=== PATIENT | female | born 1935 | race African-American/Black ===

== ENCOUNTER 2017-06-30 12:21 | Inpatient (IN) | payer MEDICARE, MEDICAID ==
[~2017-06-30] VITALS: Ht 165.1 cm; Wt 49.9 kg
[2017-06-30] VITALS (14 sets, daily range): BP systolic 57–151; BP diastolic 23–75
[2017-06-30] MEDS ORDERED: DOCUSATE SODIU100 MG JT (12:51)
[2017-06-30] MEDS ORDERED: ATORVASTATIN CA20 MG JT (12:51)
[2017-06-30] MEDS ORDERED: ASPIRIN EC81 MG JT (12:51)
[2017-06-30] MEDS ORDERED: FERROUS SULFAT325 MG JT (12:51)
[2017-06-30] MEDS ORDERED: VITAMIN C500 M1 JT (12:51)
[2017-06-30] MEDS ORDERED: ACETAMINOPHEN325 M1 JT (12:51)
[2017-06-30] MEDS ORDERED: VITAMIN D400 INTLU JT (12:51)
[2017-06-30] MEDS ORDERED: VITAMIN A & D113 GM TP (12:51)
[2017-06-30] MEDS ORDERED: CALMOSEPTINE O3.5 G1 TP (12:51)
[2017-06-30 13:05] LABS: HEMATOCRIT 10.1 % (37.0-47.0); MEAN CORPUSCULAR VOLUME 106 FL (80-99); PLATELET COUNT 233 K/UL (150-450); RED BLOOD COUNT 0.95 M/UL (4.20-5.40); RED CELL DISTRIBUTION WIDTH 16.2 % (11.6-14.8); WHITE BLOOD COUNT 7.9 K/UL (4.8-10.8)
[2017-06-30] MEDS ORDERED: Pantoprazole Inj IVP ONE (13:15)
[2017-06-30 13:29] LABS: ANION GAP 6 mmol/L (5-15); BLOOD UREA NITROGEN 28 mg/dL (7-18); CARBON DIOXIDE 29 MMOL/L (21-32); CHLORIDE 103 MMOL/L (98-107); CREATININE 0.7 MG/DL (0.55-1.30); POTASSIUM 3.6 MMOL/L (3.5-5.1); SODIUM 137 MMOL/L (136-145)
[2017-06-30 13:39] LABS: ALANINE AMINOTRANSFERASE 71 U/L (12-78); ALBUMIN 2.1 G/DL (3.4-5.0); ALBUMIN/GLOBULIN RATIO 0.6 (1.0-2.7); ALKALINE PHOSPHATASE 49 U/L (46-116); ASPARTATE AMINO TRANSFERASE 39 U/L (15-37); BILIRUBIN,TOTAL 0.3 MG/DL (0.2-1.0); CREATINE KINASE 109 U/L (26-308)
--- NOTE | 2017-06-30 14:06 | Emergency Room Report ---
History of Present Illness General Chief Complaint: General Complaint Source: Family Member, Medical Record, EMS Present Illness HPI The patient is sent in for hypotension. According to the godson, gastrostomy tube placed one week ago. She's been having difficulty moving her bowels. Her blood pressure was noted to be low at the SNF. There is some argument over transporting her because she's DO NOT RESUSCITATE status. The godson insisted that she receive evaluation and treatment. No other history available. Patient in vegetative state and further history unavailable. Allergies: Coded Allergies: No Known Allergies (Unverified , 06/30/17) Patient History Past Medical History: see triage record Past Surgical History: other - Gastrostomy tube Social History Narrative [facility] Reviewed Nursing Documentation: PMH: Agreed, PSxH: Agreed Nursing Documentation-PMH Hx COPD: Yes Review of Systems All Other Systems: limited Physical Exam Vital Signs Date Time Temp Pulse Resp B/P (MAP) Pulse Ox O2 Delivery O2 Flow Rate FiO2 06/30/17 12:16 97.9 59 16 95/38 96 Nasal Cannula 3.0 Sp02 EP Interpretation: reviewed, abnormal - interpreted as low by me General Appearance: no apparent distress, thin, Chronically Ill Head: normocephalic Eyes: bilateral eye PERRL, bilateral eye conjunctivae pale ENT: moist mucus membranes Neck: supple Respiratory: lungs clear, normal breath sounds Cardiovascular #1: bradycardia Cardiovascular #2: 2+ radial (L) Gastrointestinal: normal bowel sounds, non tender, soft, no mass, other - G tube Rectal: black stool, heme positive stool - melena Genitourinary: no CVA tenderness Musculoskeletal: other - contractures and atrophy Neurologic: other - ebulic, no response to pain Psychiatric: other - vegetative state Skin: pallor Procedures Critical Care Time Critical Care Time Total Critical Care Time: 30 min bedside evaluation and treatment excludes procedures (EKG). Reason for critical care: determine level of care, hypotension, critical anemia Possible complications: hypotension, hypertension, HI, shock, arrhythmias, metabolic acidosis, end organ damage, respiratory failure. Interventions: Fluids, blood, determining level of care Course: Patient presents with hypotension and melena. Critical anemia. Discussion with leidy regarding level of care. Blood ordered and discussed with blood bank. BP better with hydration. Blood transfusing with patient tolerating well. Consultations: nursing staff, EMS, family, blood bank Performed by: Dr. Palm Tolerated well condition = serious Medical Decision Making Diagnostic Impression: Primary Impression: Upper gastrointestinal bleed Additional Impressions: Critical anemia Hypotension (arterial) Qualified Codes: I95.89 - Other hypotension ER Course Patient presents with hypotension and melena. Ddx: UGI bleed, PUD, gastritis, post-gastrostomy tube bleeding amongst others. Patient needs emergent evaluation and treatment. EKG, CXR, sepsis w/u. Treatment with fluids and will need to assess if comfort care includes blood transfusions. Will also treat with protonix. Critical anemia. EKG without injury. CXR clear. CMP with elevated BUN. Neg troponin. Elevated lactate felt due to hemorrhagic shock. Contacted blood bank for transfusion DIANA @ 13:55. Discussed with God-son who has DPA - wants transfusion. BP better with fluids. Needs transfusion. Blood ordered and started. Dr. Cooper requests Dr. Marshall. Admit med Dr. Marshall and Ms. Strong. Patient improved. DNR status continued. Admit med. Laboratory Tests Test 06/30/17 12:30 06/30/17 14:00 White Blood Count 7.9 K/UL (4.8-10.8) Red Blood Count 0.95 M/UL (4.20-5.40) L Hemoglobin 3.0 G/DL (12.0-16.0) *L Hematocrit 10.1 % (37.0-47.0) L Mean Corpuscular Volume 106 FL (80-99) H Mean Corpuscular Hemoglobin 31.6 PG (27.0-31.0) H Mean Corpuscular Hemoglobin Concent 29.8 G/DL (32.0-36.0) L Red Cell Distribution Width 16.2 % (11.6-14.8) H Platelet Count 233 K/UL (150-450) Mean Platelet Volume 6.8 FL (6.5-10.1) Neutrophils (%) (Auto) % (45.0-75.0) Lymphocytes (%) (Auto) % (20.0-45.0) Monocytes (%) (Auto) % (1.0-10.0) Eosinophils (%) (Auto) % (0.0-3.0) Basophils (%) (Auto) % (0.0-2.0) Differential Total Cells Counted 100 Neutrophils % (Manual) 73 % (45-75) Lymphocytes % (Manual) 26 % (20-45) Monocytes % (Manual) 1 % (1-10) Eosinophils % (Manual) 0 % (0-3) Basophils % (Manual) 0 % (0-2) Band Neutrophils 0 % (0-8) Nucleated Red Blood Cells 1 /100 WBC Platelet Estimate Adequate Platelet Morphology Normal Polychromasia 2+ Hypochromasia 2+ Anisocytosis 1+ Macrocytosis 1+ Prothrombin Time 10.9 SEC (9.30-11.50) Prothrombin Time INR 1.0 (0.9-1.1) PTT 23 SEC (23-33) Sodium Level 137 MMOL/L (136-145) Potassium Level 3.6 MMOL/L (3.5-5.1) Chloride Level 103 MMOL/L (98-107) Carbon Dioxide Level 29 MMOL/L (21-32) Anion Gap 6 mmol/L (5-15) Blood Urea Nitrogen 28 mg/dL (7-18) H Creatinine 0.7 MG/DL (0.55-1.30) Estimate Glomerular Filtration Rate mL/min (>60) Glucose Level 125 MG/DL (74-106) H Lactic Acid Level 3.70 mmol/L (0.66-2.22) H Pending Calcium Level 8.0 MG/DL (8.5-10.1) L Total Bilirubin 0.3 MG/DL (0.2-1.0) Aspartate Amino Transferase (AST) 39 U/L (15-37) H Alanine Aminotransferase (ALT) 71 U/L (12-78) Alkaline Phosphatase 49 U/L (46-116) Total Creatine Kinase 109 U/L (26-308) Troponin I 0.030 ng/mL (0.000-0.056) Pro-B-Type Natriuretic Peptide 2962 pg/mL (0-125) H Total Protein 5.6 G/DL (6.4-8.2) L Albumin 2.1 G/DL (3.4-5.0) L Globulin 3.5 g/dL Albumin/Globulin Ratio 0.6 (1.0-2.7) L Urine Color Yellow Urine Appearance Clear Urine pH 6 (4.5-8.0) Urine Specific Vaughan 1.015 (1.005-1.035) Urine Protein Negative (NEGATIVE) Urine Glucose (UA) Negative (NEGATIVE) Urine Ketones Negative (NEGATIVE) Urine Occult Blood Negative (NEGATIVE) Urine Nitrite Negative (NEGATIVE) Urine Bilirubin Negative (NEGATIVE) Urine Urobilinogen 1 MG/DL (0.0-1.0) H Urine Leukocyte Esterase 1+ (NEGATIVE) H Urine RBC 0-2 /HPF (0 - 2) Urine WBC 2-4 /HPF (0 - 2) Urine Squamous Epithelial Cells Occasional /LPF Urine Bacteria Occasional /HPF (NONE) EKG Diagnostic Results Rate: bradycardiac Rhythm: NSR ST Segments: no acute changes Rhythm Strip Diag. Results EP Interpretation: yes Rhythm: other - bradycardia, PVC, rate = 58 Chest X-Ray Diagnostic Results Chest X-Ray Diagnostic Results : Chest X-Ray Ordered: Yes # of Views/Limited/Complete: 1 View Indication: Other EP Interpretation: Yes Interpretation: no consolidation, no effusion, no pneumothorax Impression: Other Electronically Signed by: Eric Palm MD Last Vital Signs Date Time Temp Pulse Resp B/P (MAP) Pulse Ox O2 Delivery O2 Flow Rate FiO2 06/30/17 17:00 96.1 65 19 117/64 100 Room Air 06/30/17 12:16 3.0 Status: improved Disposition: ADMITTED INPATIENT Condition: Critical Eric Palm M.D. Jun 30, 2017 14:06
[2017-06-30 14:38] LABS: APPEARANCE,URINE CLEAR; BILIRUBIN, URINE NEGATIVE (NEGATIVE); GLUCOSE, URINE (UA) NEGATIVE (NEGATIVE); KETONES,URINE NEGATIVE (NEGATIVE); LEUKOCYTE ESTERASE ,URINE 1+ (NEGATIVE); NITRITE,URINE NEGATIVE (NEGATIVE); PH,URINE 6 (4.5-8.0); PROTEIN,URINE NEGATIVE (NEGATIVE); UROBILINOGEN,URINE 1 MG/DL (0.0-1.0)
[2017-06-30 14:42] LABS: COLOR,URINE YELLOW
[2017-06-30] MEDS: D5NS 1,000 ML IV SCH (19:00)
[2017-07-01] VITALS: BP 142/71
[2017-07-01] MEDS: D5NS 1,000 ML IV SCH (00:35)
[2017-07-01 07:57] LABS: ANION GAP 5 mmol/L (5-15); BLOOD UREA NITROGEN 20 mg/dL (7-18); CARBON DIOXIDE 28 MMOL/L (21-32); CHLORIDE 107 MMOL/L (98-107); CREATININE 0.6 MG/DL (0.55-1.30); SODIUM 140 MMOL/L (136-145)
[2017-07-01 07:58] LABS: HEMATOCRIT 17.5 % (37.0-47.0); MEAN CORPUSCULAR VOLUME 87 FL (80-99); PLATELET COUNT 177 K/UL (150-450); RED BLOOD COUNT 2.01 M/UL (4.20-5.40); RED CELL DISTRIBUTION WIDTH 24.8 % (11.6-14.8); WHITE BLOOD COUNT 6.6 K/UL (4.8-10.8)
[2017-07-01 08:02] VITALS: BP 135/65
[2017-07-01 08:05] LABS: HEMOGLOBIN 5.8 G/DL (12.0-16.0)
--- NOTE | 2017-07-01 09:41 | Diagnostic Imaging Report ---
Indication: Shortness of breath Technique: One view of the chest Comparison: none Findings: Patient's chin obscures the upper mediastinum and portions of the lung apices. Scarring is seen in the left midlung periphery. Calcified granulomatous lymph node is seen on the left. No definite acute infiltrates or effusions. The heart is borderline enlarged. Aorta is tortuous. Impression: . Limited exam, as described No definite acute process
--- NOTE | 2017-07-01 09:54 | GI Initial Consult Note ---
Rios,Amira Ervin N.P. 07/01/17 0954: History of Present Illness General Date patient seen: Jul 01, 2017 Time patient seen: 09:45 Reason for Hospitalization: General Complaint Referring physician: TONJA Reason for Consultation: GI BLEED Present Illness HPI The patient is sent in for hypotension. According to the godruth, gastrostomy tube placed one week ago. She's been having difficulty moving her bowels. Her blood pressure was noted to be low at the SNF. There is some argument over transporting her because she's DO NOT RESUSCITATE status. The godson insisted that she receive evaluation and treatment. No other history available. Patient in vegetative state and further history unavailable. GI consulted for UGIB. JOHNY bonds, seen on floor awake alert non verbal. Per reports or melena, pt presented with anemia of low Hgb 3.0 s/p 2 units of pRBCs now 5.8. No active s/sx of hematemesis or coffee grounds. Noted that her resuscitation status FULL CODE. Unknown history of endoscopy / colonoscopies. Home Meds Reported Medications Petrolatum,White/Lanolin (VITAMIN A & D OINTMENT) 113 Gm Oint...g., 113 GM TP DAILY, GM 06/30/17 Vitamin D (Vitamin D3) 400 Unit Tablet, 1000 UNITS JT DAILY, TAB 06/30/17 Ascorbic Acid* (VITAMIN C*) 500 Mg Tablet, 500 MG JT DAILY, #30 TAB 0 Refills 06/30/17 Ferrous Sulfate* (FERROUS SULFATE*) 325 Mg Tablet, 325 MG JT DAILY, #30 TAB 0 Refills 06/30/17 Docusate Sodium* (DOCUSATE SODIUM*) 100 Mg Capsule, 100 MG JT TWICE A DAY, CAP 06/30/17 Menthol/Zinc Oxide (CALMOSEPTINE OINTMENT) 3.5 Gm Oint.pack, 3.5 GM TP DAILY, PACKET 06/30/17 Atorvastatin Calcium* (ATORVASTATIN CALCIUM*) 20 Mg Tablet, 20 MG JT BEDTIME, TAB 06/30/17 Aspirin Ec* (ASPIRIN EC*) 81 Mg Tablet.dr, 81 MG JT DAILY, TAB 06/30/17 Acetaminophen* (ACETAMINOPHEN 325MG TABLET*) 325 Mg Tablet, 650 MG JT Q4H Y for Fever/Headache/Mild Pain, TAB 06/30/17 Med list reviewed/reconciled: Yes Allergies: Coded Allergies: No Known Allergies (Unverified , 06/30/17) Patient History Limited by: medical condition History Provided By: Medical Record PMH Narrative Past Medical History: see triage record Past Surgical History: other - Gastrostomy tube Social History Narrative [facility] Reviewed Nursing Documentation: PMH: Agreed, PSxH: Agreed Nursing Documentation-PMH Hx COPD: Yes Review of Systems All Other Systems: limited Physical Exam Vital Signs Date Time Temp Pulse Resp B/P (MAP) Pulse Ox O2 Delivery O2 Flow Rate FiO2 06/30/17 12:16 97.9 59 16 95/38 96 Nasal Cannula 3.0 Sp02 EP Interpretation: reviewed, normal Labs Laboratory Tests Test 06/30/17 12:30 06/30/17 14:00 07/01/17 06:30 White Blood Count 7.9 K/UL (4.8-10.8) 6.6 K/UL (4.8-10.8) Red Blood Count 0.95 M/UL (4.20-5.40) L 2.01 M/UL (4.20-5.40) L Hemoglobin 3.0 G/DL (12.0-16.0) *L 5.8 G/DL (12.0-16.0) Hematocrit 10.1 % (37.0-47.0) L 17.5 % (37.0-47.0) #L Mean Corpuscular Volume 106 FL (80-99) H 87 FL (80-99) # Mean Corpuscular Hemoglobin 31.6 PG (27.0-31.0) H 29.0 PG (27.0-31.0) Mean Corpuscular Hemoglobin Concent 29.8 G/DL (32.0-36.0) L 33.3 G/DL (32.0-36.0) Red Cell Distribution Width 16.2 % (11.6-14.8) H 24.8 % (11.6-14.8) H Platelet Count 233 K/UL (150-450) 177 K/UL (150-450) Mean Platelet Volume 6.8 FL (6.5-10.1) 6.9 FL (6.5-10.1) Neutrophils (%) (Auto) % (45.0-75.0) % (45.0-75.0) Lymphocytes (%) (Auto) % (20.0-45.0) % (20.0-45.0) Monocytes (%) (Auto) % (1.0-10.0) % (1.0-10.0) Eosinophils (%) (Auto) % (0.0-3.0) % (0.0-3.0) Basophils (%) (Auto) % (0.0-2.0) % (0.0-2.0) Differential Total Cells Counted 100 100 Neutrophils % (Manual) 73 % (45-75) 73 % (45-75) Lymphocytes % (Manual) 26 % (20-45) 18 % (20-45) L Monocytes % (Manual) 1 % (1-10) 7 % (1-10) Eosinophils % (Manual) 0 % (0-3) 2 % (0-3) Basophils % (Manual) 0 % (0-2) 0 % (0-2) Band Neutrophils 0 % (0-8) 0 % (0-8) Nucleated Red Blood Cells 1 /100 WBC Platelet Estimate Adequate Adequate Platelet Morphology Normal Normal Polychromasia 2+ Hypochromasia 2+ Anisocytosis 1+ Macrocytosis 1+ Prothrombin Time 10.9 SEC (9.30-11.50) Prothromb Time International Ratio 1.0 (0.9-1.1) Activated Partial Thromboplast Time 23 SEC (23-33) Sodium Level 137 MMOL/L (136-145) 140 MMOL/L (136-145) Potassium Level 3.6 MMOL/L (3.5-5.1) 4.0 MMOL/L (3.5-5.1) Chloride Level 103 MMOL/L (98-107) 107 MMOL/L (98-107) Carbon Dioxide Level 29 MMOL/L (21-32) 28 MMOL/L (21-32) Anion Gap 6 mmol/L (5-15) 5 mmol/L (5-15) Blood Urea Nitrogen 28 mg/dL (7-18) H 20 mg/dL (7-18) H Creatinine 0.7 MG/DL (0.55-1.30) 0.6 MG/DL (0.55-1.30) Estimat Glomerular Filtration Rate mL/min (>60) mL/min (>60) Glucose Level 125 MG/DL (74-106) H 105 MG/DL (74-106) Lactic Acid Level 3.70 mmol/L (0.66-2.22) H Pending 1.40 mmol/L (0.66-2.22) Calcium Level 8.0 MG/DL (8.5-10.1) L 8.0 MG/DL (8.5-10.1) L Total Bilirubin 0.3 MG/DL (0.2-1.0) Aspartate Amino Transf (AST/SGOT) 39 U/L (15-37) H Alanine Aminotransferase (ALT/SGPT) 71 U/L (12-78) Alkaline Phosphatase 49 U/L (46-116) Total Creatine Kinase 109 U/L (26-308) Troponin I 0.030 ng/mL (0.000-0.056) Pro-B-Type Natriuretic Peptide 2962 pg/mL (0-125) H Total Protein 5.6 G/DL (6.4-8.2) L Albumin 2.1 G/DL (3.4-5.0) L Globulin 3.5 g/dL Albumin/Globulin Ratio 0.6 (1.0-2.7) L Urine Color Yellow Urine Appearance Clear Urine pH 6 (4.5-8.0) Urine Specific [place]oll[place] 1.015 (1.005-1.035) Urine Protein Negative (NEGATIVE) Urine Glucose (UA) Negative (NEGATIVE) Urine Ketones Negative (NEGATIVE) Urine Occult Blood Negative (NEGATIVE) Urine Nitrite Negative (NEGATIVE) Urine Bilirubin Negative (NEGATIVE) Urine Urobilinogen 1 MG/DL (0.0-1.0) H Urine Leukocyte Esterase 1+ (NEGATIVE) H Urine RBC 0-2 /HPF (0 - 2) Urine WBC 2-4 /HPF (0 - 2) Urine Squamous Epithelial Cells Occasional /LPF Urine Bacteria Occasional /HPF (NONE) General Appearance: no apparent distress, thin Head: normocephalic EENT: PERRL/EOMI, normal ENT inspection Neck: supple Respiratory: normal breath sounds, no respiratory distress Cardiovascular: normal rate Gastrointestinal: normal inspection, non tender, soft, normal bowel sounds, non -distended Rectal: deferred Genitourinary: no CVA tenderness Musculoskeletal: normal inspection, back normal Neurologic: alert, responsive Skin: no rash, warm/dry, palpation normal, well hydrated Lymphatic: normal inspection, no adenopathy Current Medications Current Medications Medications (Trade) Dose Ordered Sig/Brianna Route PRN Reason Start Time Stop Time Status Last Admin Dose Admin Dextrose/Sodium Chloride 1,000 ml @ 60 mls/hr [id number] IV 06/30/17 19:00 07/30/17 18:59 07/01/17 00:35 Pantoprazole (Protonix) 40 mg EVERY 12 HOURS IVP 07/01/17 10:00 07/31/17 09:59 GI: Plan Problems: (1) Upper gastrointestinal bleed Plan EGD cancelled today, no consent. >> will reschedule for tomorrow. - maintain NPO + IVFs - ppi BID 2 units of pRBCs now transfuse prn additional recs to follow fu labs Discussed with Dr. Scott. Thank you for this patient referral, we will follow. MELLISSA SCOTT 07/02/17 1012: History of Present Illness General Reason for Hospitalization: General Complaint Present Illness Home Meds Reported Medications Petrolatum,White/Lanolin (VITAMIN A & D OINTMENT) 113 Gm Oint...g., 113 GM TP DAILY, GM 06/30/17 Vitamin D (Vitamin D3) 400 Unit Tablet, 1000 UNITS JT DAILY, TAB 06/30/17 Ascorbic Acid* (VITAMIN C*) 500 Mg Tablet, 500 MG JT DAILY, #30 TAB 0 Refills 06/30/17 Ferrous Sulfate* (FERROUS SULFATE*) 325 Mg Tablet, 325 MG JT DAILY, #30 TAB 0 Refills 06/30/17 Docusate Sodium* (DOCUSATE SODIUM*) 100 Mg Capsule, 100 MG JT TWICE A DAY, CAP 06/30/17 Menthol/Zinc Oxide (CALMOSEPTINE OINTMENT) 3.5 Gm Oint.pack, 3.5 GM TP DAILY, PACKET 06/30/17 Atorvastatin Calcium* (ATORVASTATIN CALCIUM*) 20 Mg Tablet, 20 MG JT BEDTIME, TAB 06/30/17 Aspirin Ec* (ASPIRIN EC*) 81 Mg Tablet.dr, 81 MG JT DAILY, TAB 06/30/17 Acetaminophen* (ACETAMINOPHEN 325MG TABLET*) 325 Mg Tablet, 650 MG JT Q4H Y for Fever/Headache/Mild Pain, TAB 06/30/17 Allergies: Coded Allergies: No Known Allergies (Unverified , 06/30/17) GI: Plan Plan The patient was seen and examined at bedside and all new and available data was reviewed in the patients chart. I agree with the above findings, impression and plan. (Patient seen earlier today. Signature stamp does not reflect patient encounter time.). - MD Bl[facility] Ervin Dias Jul 01, 2017 09:54 MELLISSA SCOTT Jul 02, 2017 10:12
[2017-07-01] MEDS: Pantoprazole Inj IVP SCH ×2 (11:04→20:49)
--- NOTE | 2017-07-01 12:56 | Wound Care Consultation ---
Wound Assessment Wound Assessment : Wound Number: 1 Wound Present on Admission: Yes New Wound: No Status Change of Wound: No Wound Location Body Site Modif: mid Wound Location Body Site: sacral Wound Type: pressure ulcer Shelia Test: Does not Shelia Pressure Ulcer Stage: III Wound Thickness: Full Thickness Wound Length: 1.5 Wound Width: 1.5 Wound Depth: 0.3 Percent of Wound [place]/Red: 100 Wound Drainage Description: Serosanguineous Wound Drainage Amount: Scant Wound Drainage Odor: None/Absent Tissue Surrounding Wound: Macerated Wound General Appearance: Reddened, Draining Wound Comment #1 Mid Sacral stage III pressure ulcer Recommendation -Local wound care per protocol -Keep clean and dry -Turn and reposition -Offload both heels -Heel protector on both heels -Optimize nutrition -Low air loss mattress -Assess f/u accordingly for any changes LOKESH HARRIS RN Jul 01, 2017 12:56
[2017-07-01 16:09] VITALS: BP 137/66
--- NOTE | 2017-07-01 18:22 | Cardiology Report ---
APPROVED REPORT EKG Measurement Heart [id number] Sinus bradycardia with occasional premature ventricular complexes Septal infarct, age undetermined Abnormal ECG
[2017-07-01] MEDS ORDERED: NS 275ml ONE (19:00)
[2017-07-01] MEDS ORDERED: Tubing IV Blood Pump IV ONE (19:00)
--- NOTE | 2017-07-01 19:06 | Nephrology Progress Note ---
Assessment/Plan Problem List: (1) Dysphagia (2) PEG (percutaneous endoscopic gastrostomy) status (3) Severe anemia (4) Dehydration (5) GI bleed (6) Hypotension (arterial) (7) Upper gastrointestinal bleed Plan H&P dictated # [id number] Subjective ROS Limited/Unobtainable: Yes Subjective In bed, in no apparent distress Objective Objective Last 24 Hour Vital Signs Date Time Temp Pulse Resp B/P (MAP) Pulse Ox O2 Delivery O2 Flow Rate FiO2 07/01/17 16:09 98.1 57 20 137/66 97 07/01/17 08:02 96.8 57 19 135/65 97 07/01/17 08:00 Nasal Cannula 2.0 07/01/17 00:00 97.5 59 18 142/71 91 06/30/17 20:00 97.3 64 18 122/75 94 Intake and Output 06/30/17 07/01/17 19:00 07:00 Intake Total 1500 ml Output Total 300 ml Balance 1200 ml Intake IV Total 1500 ml Output Stool Total 300 ml # Voids 4 # Bowel Movements 1 2 Laboratory Tests 07/01/17 06:30: White Blood Count 6.6, Red Blood Count 2.01L, Hemoglobin 5.8#*L, Hematocrit 17.5 #L, Mean Corpuscular Volume 87#, Mean Corpuscular Hemoglobin 29.0, Mean Corpuscular Hemoglobin Concent 33.3, Red Cell Distribution Width 24.8H, Platelet Count 177, Mean Platelet Volume 6.9, Neutrophils (%) (Auto) , Lymphocytes (%) (Auto) , Monocytes (%) (Auto) , Eosinophils (%) (Auto) , Basophils (%) (Auto) , Differential Total Cells Counted 100, Neutrophils % ( Manual) 73, Lymphocytes % (Manual) 18L, Monocytes % (Manual) 7, Eosinophils % ( Manual) 2, Basophils % (Manual) 0, Band Neutrophils 0, Platelet Estimate Adequate, Platelet Morphology Normal, Sodium Level 140, Potassium Level 4.0, Chloride Level 107, Carbon Dioxide Level 28, Anion Gap 5, Blood Urea Nitrogen 20H, Creatinine 0.6, Estimat Glomerular Filtration Rate , Glucose Level 105, Lactic Acid Level 1.40, Calcium Level 8.0L Height (Feet): 5 Height (Inches): 5.00 Weight (Pounds): 110 General Appearance: no apparent distress, confused EENT: pale conjunctivae Neck: non-tender Cardiovascular: bradycardia Respiratory/Chest: lungs clear, normal breath sounds, no respiratory distress Abdomen: soft, other - PEG Extremities: non-tender, normal inspection, no calf tenderness Neurologic: disoriented Leyla Jordan N.P. Jul 01, 2017 19:06
[2017-07-01 19:15] VITALS: BP 145/85
[2017-07-01 23:59] VITALS: BP 151/67
[2017-07-02 03:55] VITALS: BP 133/62
[2017-07-02] MEDS: D5NS 1,000 ML IV SCH ×2 (04:20→13:57)
--- NOTE | 2017-07-02 05:00 | HX and Phyl Repo 2 Sig ---
DATE OF ADMISSION: 06/30/2017 INTERNAL MEDICINE HISTORY AND PHYSICAL HISTORY OF PRESENT ILLNESS: The patient is confused at this time, nonverbal as well. Therefore, history was obtained from medical records as well as consult. The patient is an 82-year-old female, resident of a long-term with past medical history significant for chronic obstructive pulmonary disease and dysphagia, status post percutaneous endoscopic gastrostomy placement about a week ago, who was transferred to [facility] with hypotension as well as melena. In the ED, the patient was noted to have severe anemia with a hemoglobin of 3.0 and hematocrit of 10.1. The patient was then transfused 2 units of packed red cells and admitted for further evaluation. She was also transferred here for constipation since after percutaneous endoscopic gastrostomy placement proceeding. No fever was reported at this time. No chills. No abdominal pain. She is currently in bed at this time. Blood transfusion ongoing. No transfusion reaction noted so far. PAST MEDICAL HISTORY: Significant for chronic obstructive pulmonary disease and dementia as well as dysphagia. PAST SURGICAL HISTORY: PEG placement about a week ago. MEDICATIONS: At the facility include acetaminophen 650 mg b.i.d. p.o. q.4 hours p.r.n., ascorbic acid 500 mg daily, aspirin 81 mg daily, atorvastatin 20 mg at bedtime, docusate sodium 100 mg b.i.d., ferrous sulfate 325 mg daily, and vitamin D 1000 units daily. ALLERGIES: She has no known allergies. SOCIAL HISTORY: The patient is a resident of a long-term. No history of smoking, alcohol use, or illicit drug use. REVIEW OF SYSTEMS: Unobtainable at this time due to patient is nonverbal. PHYSICAL EXAMINATION: GENERAL: This is an 82-year-old elderly female in bed, in no apparent distress. VITAL SIGNS: Blood pressure 137/66, heart rate is 57, respiratory rate 20, temp is 98.1, and O2 saturation is 97% on two liters. HEENT: Head is normocephalic and atraumatic. Pupils are equal. Pallor noted. NECK: Supple. No jugular venous distention noted. LUNGS: Clear to auscultation bilaterally. CARDIOVASCULAR: The patient is bradycardic. ABDOMEN: Soft, nontender, and nondistended. PEG tube noted. EXTREMITIES: No edema. No cyanosis. No clubbing. NEUROLOGIC: Nonfocal. LABORATORY DATA: CBC, white count 6.6, hemoglobin 5.8, hematocrit 17.5, and a platelet count of 177,000. BMP, sodium 140, potassium 4.0, chloride 107, bicarb 28, BUN 20, creatinine 0.6, and a blood glucose of 105. RADIOLOGIC FINDINGS: Chest x-ray findings, the patient's portions of the lung apices. in the left mid lung periphery. Calcified granulomatous lymph node is seen on the left. No definite acute infiltrates or effusions. The heart is borderline enlarged. The aorta is tortuous. Impression, limited exam as described. No definite acute process. ASSESSMENT: 1. Severe anemia. 2. Gastrointestinal bleeding. 3. Dysphagia, status post percutaneous endoscopic gastrostomy tube placement. 4. Chronic obstructive pulmonary disease. 5. Dehydration. 6. Hypotension, corrected. 7. Altered mental status. PLAN: The patient is currently on the fourth unit of blood transfusion. We will recheck H and H post transfusion. We will monitor H and H and transfuse as needed. GI consult has been recommended. The patient is scheduled for esophagogastroduodenoscopy tomorrow. We will follow up post procedure. Monitor intake and output. We will continue the current intravenous fluid at this time. We will monitor vitals. Obtain a stool for OB. We will monitor neurological status. Fall precautions. We will monitor the patient's overall response to treatment. Oscar Marshall M.D. Leyla Jordan DR: GUILLERMO JOB#: [id number] CC: HERLINDA
[2017-07-02 08:17] VITALS: BP 147/69
[2017-07-02 08:52] LABS: BASOPHILS % (AUTO) 0.6 % (0.0-2.0); EOSINOPHILS % (AUTO) 0.9 % (0.0-3.0); HEMATOCRIT 25.6 % (37.0-47.0); HEMOGLOBIN 8.7 G/DL (12.0-16.0); MEAN CORPUSCULAR VOLUME 89 FL (80-99); MONOCYTES % (AUTO) 7.6 % (1.0-10.0); NEUTROPHILS % (AUTO) 76.9 % (45.0-75.0); PLATELET COUNT 180 K/UL (150-450); RED BLOOD COUNT 2.88 M/UL (4.20-5.40); WHITE BLOOD COUNT 7.4 K/UL (4.8-10.8)
[2017-07-02 09:19] LABS: ANION GAP 6 mmol/L (5-15); BLOOD UREA NITROGEN 12 mg/dL (7-18); CALCIUM 8.2 MG/DL (8.5-10.1); CARBON DIOXIDE 26 MMOL/L (21-32); CHLORIDE 108 MMOL/L (98-107); CREATININE 0.5 MG/DL (0.55-1.30); POTASSIUM 3.4 MMOL/L (3.5-5.1); SODIUM 140 MMOL/L (136-145)
[2017-07-02] MEDS: Pantoprazole Inj IVP SCH ×2 (09:51→21:36)
[2017-07-02 10:01] LABS: % IRON SATURATION 7 % (15-50); IRON 18 ug/dL (50-175); TOTAL IRON BINDING CAPACITY 259 ug/dL (250-450)
[2017-07-02 10:03] LABS: FERRITIN 86 NG/ML (8-388)
--- NOTE | 2017-07-02 10:20 | Cardiac Electrophysiology PN ---
Subjective Subjective Transfer to the [facility] for atrial fib and bradycardia. Full code [id number] Objective Last 24 Hour Vital Signs Date Time Temp Pulse Resp B/P (MAP) Pulse Ox O2 Delivery O2 Flow Rate FiO2 07/02/17 08:17 98.7 53 18 147/69 95 07/02/17 03:55 100 Nasal Cannula 2.0 07/02/17 03:55 98.1 51 20 133/62 100 Nasal Cannula 07/02/17 00:00 100 Nasal Cannula 2.0 07/01/17 23:59 96.8 57 18 151/67 100 Room Air 07/01/17 19:15 96 Nasal Cannula 2.0 07/01/17 19:15 97.7 63 20 145/85 96 Nasal Cannula 07/01/17 16:09 98.1 57 20 137/66 97 Intake and Output 07/01/17 07/02/17 19:00 07:00 Intake Total 240 ml 560 ml Balance 240 ml 560 ml Intake IV Total 240 ml 560 ml Laboratory Tests Test 07/02/17 08:00 White Blood Count 7.4 K/UL (4.8-10.8) Red Blood Count 2.88 M/UL (4.20-5.40) L Hemoglobin 8.7 G/DL (12.0-16.0) #L Hematocrit 25.6 % (37.0-47.0) #L Mean Corpuscular Volume 89 FL (80-99) Mean Corpuscular Hemoglobin 30.2 PG (27.0-31.0) Mean Corpuscular Hemoglobin Concent 34.1 G/DL (32.0-36.0) Red Cell Distribution Width 20.0 % (11.6-14.8) H Platelet Count 180 K/UL (150-450) Mean Platelet Volume 6.9 FL (6.5-10.1) Neutrophils (%) (Auto) 76.9 % (45.0-75.0) H Lymphocytes (%) (Auto) 14.0 % (20.0-45.0) L Monocytes (%) (Auto) 7.6 % (1.0-10.0) Eosinophils (%) (Auto) 0.9 % (0.0-3.0) Basophils (%) (Auto) 0.6 % (0.0-2.0) Differential Total Cells Counted 100 Neutrophils % (Manual) 75 % (45-75) Lymphocytes % (Manual) 20 % (20-45) Monocytes % (Manual) 5 % (1-10) Eosinophils % (Manual) 0 % (0-3) Basophils % (Manual) 0 % (0-2) Band Neutrophils 0 % (0-8) Nucleated Red Blood Cells 1 /100 WBC Platelet Estimate Adequate Platelet Morphology Normal Polychromasia 1+ Hypochromasia 1+ Anisocytosis 2+ Reticulocyte Count Pending Hemoglobin A Pending Hemoglobin A2 Pending Hemoglobin C Pending Hemoglobin F () Pending Hemoglobin S Pending Variant Hemoglobin Pending Hemoglobin Electrophoresis Interp Pending Hemoglobin Interpretation Pending Hemoglobin Solubility Pending Prothrombin Time 10.7 SEC (9.30-11.50) Prothromb Time International Ratio 1.0 (0.9-1.1) Activated Partial Thromboplast Time 25 SEC (23-33) PTT Mixing Study Pending APTT Patient/Control Mix Pending Mix PTT Incubation Time Pending Mix PTT Normal/Saline 1:1 Immediate Pending Thrombin Time Normal Plasma Pending Fibrinogen 313 mg/dL (200-400) Sodium Level 140 MMOL/L (136-145) Potassium Level 3.4 MMOL/L (3.5-5.1) L Chloride Level 108 MMOL/L (98-107) H Carbon Dioxide Level 26 MMOL/L (21-32) Anion Gap 6 mmol/L (5-15) Blood Urea Nitrogen 12 mg/dL (7-18) Creatinine 0.5 MG/DL (0.55-1.30) L Estimat Glomerular Filtration Rate mL/min (>60) Glucose Level 93 MG/DL (74-106) Calcium Level 8.2 MG/DL (8.5-10.1) L Phosphorus Level 3.0 MG/DL (2.5-4.9) Magnesium Level 1.9 MG/DL (1.8-2.4) Iron Level 18 ug/dL (50-175) L Total Iron Binding Capacity 259 ug/dL (250-450) Percent Iron Saturation 7 % (15-50) L Unsaturated Iron Binding 241 ug/dL (112-346) Ferritin 86 NG/ML (8-388) Lactate Dehydrogenase Pending Vitamin B12 Level 466 PG/ML (193-986) Methylmalonic Acid Pending Folate 4.9 NG/ML (8.6-58.9) L Thyroid Stimulating Hormone (TSH) 2.686 uiU/mL (0.358-3.740) Free Thyroxine 1.29 NG/DL (0.76-1.46) Hepatitis A IgM Antibody Pending Hepatitis B Surface Antigen Pending Hepatitis B Core IgM Antibody Pending Hepatitis C Antibody Pending HIV (1&2) Antibody Rapid Pending Microbiology Date/Time Source Procedure Growth Status 06/30/17 12:40 Blood Blood Culture - Preliminary Resulted 06/30/17 12:30 Blood Blood Culture - Preliminary Resulted 06/30/17 17:00 Nasal Nares MRSA Culture - Final NO METHICILLIN RESISTANT STAPH AUREUS... Complete 06/30/17 17:00 Rectum VRE Culture - Final NO VANCOMYCIN RESISTANT ENTEROCOCCUS ... Complete GEOFFREY AGUERO Jul 02, 2017 10:20
[2017-07-02 12:00] VITALS: BP_SYST 147; BP_SYST 159; BP_DIAS 65; BP_DIAS 69
--- NOTE | 2017-07-02 15:32 | GI Progress Note ---
Assessment/Plan Problems: (1) Hypovolemic shock ICD Codes: R57.1 - Hypovolemic shock SNOMED: 53592509 (2) Encephalopathy ICD Codes: G93.40 - Encephalopathy, unspecified SNOMED: 90813051 (3) Severe malnutrition ICD Codes: E43 - Unspecified severe protein-calorie malnutrition SNOMED: 63386481 (4) Acute blood loss anemia ICD Codes: D62 - Acute posthemorrhagic anemia SNOMED: 813148678 (5) Dehydration ICD Codes: E86.0 - Dehydration SNOMED: 17579160 (6) Dysphagia ICD Codes: R13.10 - Dysphagia, unspecified SNOMED: 36652574, 825495028 (7) GI bleed ICD Codes: K92.2 - Gastrointestinal hemorrhage, unspecified SNOMED: 49923343 (8) Severe anemia ICD Codes: D64.9 - Anemia, unspecified SNOMED: 623226831 (9) Upper gastrointestinal bleed ICD Codes: K92.2 - Gastrointestinal hemorrhage, unspecified SNOMED: 90267529 Status: unchanged Status Narrative Discussed with Dr. Arana. Assessment/Plan EGD cancelled, pt with no onset of A-fib now in tele. fu cardiology recs prn transfusions ppi bid venofer fu labs The patient was seen and examined at bedside and all new and available data was reviewed in the patients chart. I agree with the above findings, impression and plan. (Patient seen earlier today. Signature stamp does not reflect patient encounter time.). - Darrion Arana MD Subjective Subjective limited Objective Last 24 Hour Vital Signs Date Time Temp Pulse Resp B/P (MAP) Pulse Ox O2 Delivery O2 Flow Rate FiO2 07/02/17 12:00 96.2 62 18 147/69 95 07/02/17 12:00 98.0 59 18 159/65 95 07/02/17 08:17 98.7 53 18 147/69 95 07/02/17 03:55 100 Nasal Cannula 2.0 07/02/17 03:55 98.1 51 20 133/62 100 Nasal Cannula 07/02/17 00:00 100 Nasal Cannula 2.0 07/01/17 23:59 96.8 57 18 151/67 100 Room Air 07/01/17 19:15 96 Nasal Cannula 2.0 07/01/17 19:15 97.7 63 20 145/85 96 Nasal Cannula 07/01/17 16:09 98.1 57 20 137/66 97 Intake and Output 07/01/17 07/02/17 19:00 07:00 Intake Total 240 ml 560 ml Balance 240 ml 560 ml Intake IV Total 240 ml 560 ml Laboratory Tests Test 07/02/17 08:00 07/02/17 12:40 White Blood Count 7.4 K/UL (4.8-10.8) Red Blood Count 2.88 M/UL (4.20-5.40) L Hemoglobin 8.7 G/DL (12.0-16.0) #L Hematocrit 25.6 % (37.0-47.0) #L Mean Corpuscular Volume 89 FL (80-99) Mean Corpuscular Hemoglobin 30.2 PG (27.0-31.0) Mean Corpuscular Hemoglobin Concent 34.1 G/DL (32.0-36.0) Red Cell Distribution Width 20.0 % (11.6-14.8) H Platelet Count 180 K/UL (150-450) Mean Platelet Volume 6.9 FL (6.5-10.1) Neutrophils (%) (Auto) 76.9 % (45.0-75.0) H Lymphocytes (%) (Auto) 14.0 % (20.0-45.0) L Monocytes (%) (Auto) 7.6 % (1.0-10.0) Eosinophils (%) (Auto) 0.9 % (0.0-3.0) Basophils (%) (Auto) 0.6 % (0.0-2.0) Differential Total Cells Counted 100 Neutrophils % (Manual) 75 % (45-75) Lymphocytes % (Manual) 20 % (20-45) Monocytes % (Manual) 5 % (1-10) Eosinophils % (Manual) 0 % (0-3) Basophils % (Manual) 0 % (0-2) Band Neutrophils 0 % (0-8) Nucleated Red Blood Cells 1 /100 WBC Platelet Estimate Adequate Platelet Morphology Normal Polychromasia 1+ Hypochromasia 1+ Anisocytosis 2+ Reticulocyte Count 0.4 % (0.0-2.0) Hemoglobin A Pending Hemoglobin A2 Pending Hemoglobin C Pending Hemoglobin F () Pending Hemoglobin S Pending Variant Hemoglobin Pending Hemoglobin Electrophoresis Interp Pending Hemoglobin Interpretation Pending Hemoglobin Solubility Pending Prothrombin Time 10.7 SEC (9.30-11.50) Prothromb Time International Ratio 1.0 (0.9-1.1) Activated Partial Thromboplast Time 25 SEC (23-33) PTT Mixing Study Pending APTT Patient/Control Mix Pending Mix PTT Incubation Time Pending Mix PTT Normal/Saline 1:1 Immediate Pending Thrombin Time Normal Plasma Pending Fibrinogen 313 mg/dL (200-400) Sodium Level 140 MMOL/L (136-145) Potassium Level 3.4 MMOL/L (3.5-5.1) L Chloride Level 108 MMOL/L (98-107) H Carbon Dioxide Level 26 MMOL/L (21-32) Anion Gap 6 mmol/L (5-15) Blood Urea Nitrogen 12 mg/dL (7-18) Creatinine 0.5 MG/DL (0.55-1.30) L Estimat Glomerular Filtration Rate mL/min (>60) Glucose Level 93 MG/DL (74-106) Calcium Level 8.2 MG/DL (8.5-10.1) L Phosphorus Level 3.0 MG/DL (2.5-4.9) Magnesium Level 1.9 MG/DL (1.8-2.4) Iron Level 18 ug/dL (50-175) L Total Iron Binding Capacity 259 ug/dL (250-450) Percent Iron Saturation 7 % (15-50) L Unsaturated Iron Binding 241 ug/dL (112-346) Ferritin 86 NG/ML (8-388) Lactate Dehydrogenase 283 U/L (81-234) H Vitamin B12 Level 466 PG/ML (193-986) Methylmalonic Acid Pending Folate 4.9 NG/ML (8.6-58.9) L Thyroid Stimulating Hormone (TSH) 2.686 uiU/mL (0.358-3.740) Free Thyroxine 1.29 NG/DL (0.76-1.46) Hepatitis A IgM Antibody Pending Hepatitis B Surface Antigen Pending Hepatitis B Core IgM Antibody Pending Hepatitis C Antibody Pending HIV (1&2) Antibody Rapid Negative (NEGATIVE) Troponin I 0.103 ng/mL (0.000-0.056) Height (Feet): 5 Height (Inches): 5.00 Weight (Pounds): 110 General Appearance: thin Cardiovascular: normal rate Respiratory/Chest: normal breath sounds, no respiratory distress Abdominal Exam: soft Amira Rios N.P. Jul 02, 2017 15:32 MELLISSA ARANA Jul 03, 2017 09:06
[2017-07-02 16:10] VITALS: BP 157/77
--- NOTE | 2017-07-02 17:45 | Consultation ---
DATE OF CONSULTATION: 07/02/2017 CARDIOLOGY CONSULTATION CONSULTING PHYSICIAN: Dayron Garcia M.D. REFERRING PHYSICIAN: Oscar Marshall M.D. REASON FOR CONSULTATION: Management of atrial fibrillation and hyperlipidemia. HISTORY OF PRESENT ILLNESS: The patient is an 82-year-old lady with history of advanced dementia and dysphagia, who underwent a gastrostomy tube placement about a week ago, who was brought to the emergency room as the blood pressure was noted to be low at the [facility]. The patient also is DNR. The patient is in a vegetative state and no information is available. The patient was noted to have hemoglobin of only 3 and she did receive 2 units of blood transfusion and hemoglobin improved to 5.8. There is no history of hematemesis or coffee ground. The patient's status was changed to Full Code and was admitted and a Cardiology consultation was requested as EKG showed atrial fibrillation. PAST MEDICAL HISTORY: 1. Hypertension. 2. History of dementia. 3. Hyperlipidemia. 4. Dysphagia, status post PEG placement. 5. Chronic obstructive pulmonary disease. PAST SURGICAL HISTORY: PEG placement. MEDICATIONS: Per reconciliation and include aspirin and ferrous sulfate. SOCIAL HISTORY: She lives in a nursing facility. Does not smoke or drink alcohol or use any illicit drugs. FAMILY HISTORY: Noncontributory. REVIEW OF SYSTEMS: Cannot be obtained. PHYSICAL EXAMINATION: VITAL SIGNS: Blood pressure is 147/69, pulse is 53, respirations 18, and she is afebrile. HEAD AND NECK: No JVD. LUNGS: Decreased breath sounds. CARDIOVASCULAR: Bradycardic S1 and S2 with no gallop. ABDOMEN: Status post G-tube. EXTREMITIES: No pitting edema. LABORATORY DATA: Labs showed hemoglobin initially was 3, today is 8.7; hematocrit 25.6; white count of 7.4; and platelet count is 180,000. Sodium is 140, potassium is 3.4, BUN of 12, creatinine of 0.5, and glucose of 93. Telemetry strips show baseline atrial fibrillation with ventricular response in the 50s. ASSESSMENT AND PLAN: 1. Atrial fibrillation based on EKG. There is no prior history per her records. We will repeat the EKG and get an echocardiogram to evaluate for ejection fraction and wall motion abnormality. Echocardiogram was also ordered. 2. Profound anemia with hemoglobin A1c. The patient is scheduled for EGD today. 3. History of bradycardia based on records from [facility] and heart rate was dropping to 40s. We will transfer the patient to telemetry. 4. Dysphagia, status post PEG placement by Dr. Amado at [facility]. Thank you very much, Dr. Marshall, for allowing me to participate in the care of this patient. Please do not hesitate to contact me for any questions regarding my evaluation. Dayron Garcia M.D. DR: TANO JOB#: [id number] CC:
--- NOTE | 2017-07-02 18:38 | Cardiology Report ---
APPROVED REPORT EXAM: Two-dimensional and M-mode echocardiogram with Doppler and color Doppler. INDICATION Pre-Op M-Mode DIMENSIONS IVSd1.0 (0.7-1.1cm)Left Atrium (MM)5.6 (1.6-4.0cm) LVDd4.8 (3.5-5.6cm)Aortic Root2.3 (2.0-3.7cm) PWd1.1 (0.7-1.1cm)Aortic Cusp Exc.1.8 (1.5-2.0cm) LVDs2.6 (2.5-4.0cm) PWs1.0 cm Technically difficult study due to poor acoustical windows. Patients position and moving. Normal left ventricular chamber size, systolic function and wall motion. Left ventricular ejection fraction estimated to be 55-60%. No evidence of left ventricular hypertrophy. No evidence of pericardial or pleural effusion. Moderate bi-atrial enlargement by 2D. Focal aortic valve sclerosis with adequate cusp excursion. Thickened mitral valve leaflets with normal excursion. Mild mitral annulus and aortic root calcification. Pulmonic valve is well visualized. Normal tricuspid valve structure. IVC is not obtainable due to GI tube. A color flow and spectral Doppler study was performed and revealed: No aortic regurgitation. Mild mitral regurgitation. Normal mitral diastolic function. Moderate tricuspid regurgitation. Tricuspid systolic velocities suggests peak right ventricular systolic pressure of 56 mmHg Consistent with severe pulmonary hypertension. Pulmonic regurgitation present.
[2017-07-02 20:00] VITALS: BP 149/67
[2017-07-02] MEDS: Iron Sucrose 100 MG in NS 55 ML IV SCH (21:36)
[2017-07-03] VITALS: BP 156/76
--- NOTE | 2017-07-03 00:01 | Nephrology Progress Note ---
JAY EVANGELISTA 07/03/17 0001: Subjective Subjective late entry for 07/02 - Objective Objective Last 24 Hour Vital Signs Date Time Temp Pulse Resp B/P (MAP) Pulse Ox O2 Delivery O2 Flow Rate FiO2 07/02/17 18:17 58 07/02/17 16:10 96.6 63 18 157/77 95 07/02/17 16:00 58 07/02/17 12:00 96.2 62 18 147/69 95 07/02/17 12:00 98.0 59 18 159/65 95 07/02/17 08:17 98.7 53 18 147/69 95 07/02/17 03:55 100 Nasal Cannula 2.0 07/02/17 03:55 98.1 51 20 133/62 100 Nasal Cannula Intake and Output 07/02/17 07/03/17 19:00 07:00 Intake Total 120 ml Balance 120 ml Intake IV Total 120 ml # Voids 7 # Bowel Movements 2 Laboratory Tests 07/02/17 08:00: White Blood Count 7.4, Red Blood Count 2.88L, Hemoglobin 8.7#L, Hematocrit 25.6# L, Mean Corpuscular Volume 89, Mean Corpuscular Hemoglobin 30.2, Mean Corpuscular Hemoglobin Concent 34.1, Red Cell Distribution Width 20.0H, Platelet Count 180, Mean Platelet Volume 6.9, Neutrophils (%) (Auto) 76.9H, Lymphocytes (%) (Auto) 14.0L, Monocytes (%) (Auto) 7.6, Eosinophils (%) (Auto) 0.9, Basophils (%) (Auto) 0.6, Differential Total Cells Counted 100, Neutrophils % (Manual) 75, Lymphocytes % (Manual) 20, Monocytes % (Manual) 5, Eosinophils % (Manual) 0, Basophils % (Manual) 0, Band Neutrophils 0, Nucleated Red Blood Cells 1, Platelet Estimate Adequate, Platelet Morphology Normal, Polychromasia 1+, Hypochromasia 1+, Anisocytosis 2+, Reticulocyte Count 0.4, Hemoglobin A [Pending], Hemoglobin A2 [Pending], Hemoglobin C [Pending], Hemoglobin F () [Pending], Hemoglobin S [Pending], Variant Hemoglobin [ Pending], Hemoglobin Electrophoresis Interp [Pending], Hemoglobin Interpretation [Pending], Hemoglobin Solubility [Pending], Prothrombin Time 10.7 , Prothromb Time International Ratio 1.0, Activated Partial Thromboplast Time 25 , PTT Mixing Study [Pending], APTT Patient/Control Mix [Pending], Mix PTT Incubation Time [Pending], Mix PTT Normal/Saline 1:1 Immediate [Pending], Thrombin Time Normal Plasma [Pending], Fibrinogen 313, Sodium Level 140, Potassium Level 3.4L, Chloride Level 108H, Carbon Dioxide Level 26, Anion Gap 6 , Blood Urea Nitrogen 12, Creatinine 0.5L, Estimat Glomerular Filtration Rate , Glucose Level 93, Calcium Level 8.2L, Phosphorus Level 3.0, Magnesium Level 1.9 , Iron Level 18L, Total Iron Binding Capacity 259, Percent Iron Saturation 7L, Unsaturated Iron Binding 241, Ferritin 86, Lactate Dehydrogenase 283H, Vitamin B12 Level 466, Methylmalonic Acid [Pending], Folate 4.9L, Thyroid Stimulating Hormone (TSH) 2.686, Free Thyroxine 1.29, Hepatitis A IgM Antibody [Pending], Hepatitis B Surface Antigen [Pending], Hepatitis B Core IgM Antibody [Pending], Hepatitis C Antibody [Pending], HIV (1&2) Antibody Rapid Negative 07/02/17 12:40: Troponin I 0.103H 07/02/17 19:10: Troponin I 0.146H Height (Feet): 5 Height (Inches): 5.00 Weight (Pounds): 110 SHARON HOLLOWAY 07/03/17 1246: Assessment/Plan Problem List: (1) Hypotension (arterial) (2) Upper gastrointestinal bleed (3) Dehydration (4) Dysphagia (5) Severe anemia (6) Encephalopathy (7) Acute blood loss anemia (8) Hypovolemic shock (9) GI bleed (10) Severe malnutrition Plan Pending EGD. Follow up GI recs. MOnitor labs. Transfuse prn. Subjective Subjective transferred to tele for afib and bradycardia. Objective Objective General Appearance: WD/WN, no apparent distress Cardiovascular: regularly irregular, bradycardia Respiratory/Chest: lungs clear Abdomen: non tender, soft Extremities: non-pitting JAY EVANGELISTA Jul 03, 2017 00:01 SHARON HOLLOWAY Jul 03, 2017 12:46
[2017-07-03 03:31] LABS: BASOPHILS % (AUTO) 0.9 % (0.0-2.0); EOSINOPHILS % (AUTO) 0.5 % (0.0-3.0); LYMPHOCYTES % (AUTO) 7.6 % (20.0-45.0); MEAN CORPUSCULAR VOLUME 88 FL (80-99); MONOCYTES % (AUTO) 7.6 % (1.0-10.0); NEUTROPHILS % (AUTO) 83.3 % (45.0-75.0); PLATELET COUNT 178 K/UL (150-450); RED BLOOD COUNT 3.08 M/UL (4.20-5.40); RED CELL DISTRIBUTION WIDTH 19.7 % (11.6-14.8); WHITE BLOOD COUNT 6.9 K/UL (4.8-10.8)
[2017-07-03 03:44] LABS: ANION GAP 9 mmol/L (5-15); BLOOD UREA NITROGEN 7 mg/dL (7-18); CARBON DIOXIDE 23 MMOL/L (21-32); CHLORIDE 107 MMOL/L (98-107); CREATININE 0.5 MG/DL (0.55-1.30); SODIUM 139 MMOL/L (136-145)
[2017-07-03 04:00] VITALS: BP 143/58
--- NOTE | 2017-07-03 05:00 | Progress Note ---
DATE: 07/02/2017 SUBJECTIVE: This is an 82-year-old female, currently in bed, looks comfortable, nonverbal, and bedbound. OBJECTIVE: VITAL SIGNS: Blood pressure is 130/70, pulse 74, and respirations 18. SKIN: Good skin turgor. HEENT: . NECK: Supple. CHEST: Bilateral crackles. CARDIOVASCULAR: Regular rhythm. No gallop. No murmur. ABDOMEN: Soft. EXTREMITIES: CCE. NEUROLOGICAL: Generalized weakness. ASSESSMENT: 1. Severe anemia. 2. Possible gastrointestinal bleed. 3. Dysphagia. 4. Dementia. PLAN: 1. The patient is going for EGD. 2. NPO. 3. Continue intravenous fluids. 4. Continue PPI. 5. GI and Nephrology on case. Hilario Cooper M.D. DR: GABRIELLA JOB#: [id number] CC:
[2017-07-03] MEDS: D5NS 1,000 ML IV SCH ×3 (06:17→23:39)
[2017-07-03 08:00] VITALS: BP 154/67
[2017-07-03] MEDS: Pantoprazole Inj IVP SCH ×2 (08:12→20:31)
--- NOTE | 2017-07-03 08:15 | Consultation ---
DATE OF CONSULTATION: 07/01/2017 HEMATOLOGY/ONCOLOGY CONSULTATION CONSULTING PHYSICIAN: Joaquim Dwyer M.D. REQUESTING PHYSICIAN: Oscar Marshall M.D. REASON FOR CONSULTATION: Evaluation of GI bleed. IDENTIFICATION DATA: Dear Dr. Marshall, The patient is a pleasant 82-year-old female with past medical history significant for vitamin D deficiency, iron deficiency, hyperlipidemia, at this time had a G-tube placed approximately a week ago who was sent in for hypertension, difficulty moving her bowels, also noted to have a low blood pressure, and given packed red blood cells. She was does have DNR status. Hematology service was consulted for further evaluation and treatment. The patient again noted to be with upper GI bleed, nonverbal, hemoglobin noted to be 3, currently status post 2 units of blood. PAST MEDICAL HISTORY: As noted above. PAST SURGICAL HISTORY: None noted. ALLERGIES: No known drug allergies. MEDICATIONS: Aspirin, Tylenol, milk of magnesia, , ferrous sulfate, vitamin C, and vitamin D. SOCIAL HISTORY: She is a [email or web address] Member. REVIEW OF SYSTEMS: Nonverbal. PHYSICAL EXAMINATION: GENERAL: No acute distress. VITAL SIGNS: Reviewed. PULMONARY: Decreased breath sounds. CARDIOVASCULAR: Regular rate. No S3 or S4. ABDOMEN: Soft, nontender, and nondistended. EXTREMITIES: No cyanosis, swelling, or edema. LABORATORY DATA: WBC 6.6, platelet count 127, hemoglobin 5.8. Anemia workup has been ordered. IMAGING: Chest x-ray, . ASSESSMENT AND RECOMMENDATIONS: 1. Anemia due to upper gastrointestinal bleed. Obtain anemia workup. Hemoglobin goal is above 7. EGD canceled, no consent, so she was scheduled for Saturday. The patient is status post blood transfusion. 2. Failure to thrive, status post percutaneous endoscopic gastrostomy tube. 3. Dehydration. 4. Anemia of iron deficiency. 5. Upper gastrointestinal bleed. I appreciate the consultation. Joaquim Dwyer M.D. DR: Heather JOB#: [id number] CC:
--- NOTE | 2017-07-03 09:25 | Cardiac Electrophysiology PN ---
Assessment/Plan Assessment/Plan 1. Atrial fibrillation based on EKG. There is no prior history per her records. Remained in SR/ Sinus kan overnight. 2. Troponin leak. Levels are flat likely due to demand ischemia in view of Hb as low as 3. Echo Nl EF Off aspirin for Hb 3. Off betablocker for bradycardia 3. Bradycardia based on records from [facility] and heart rate was dropping to 40s and here overnight. Asymptomatic. HR now 51. Off any PANDYA or AVN nola. TFT showed no hypothyroidism 4. Dysphagia, status post PEG placement by Dr. Amado at [facility] 06/23/17. 5. Profound anemia with hemoglobin A1c. The patient is scheduled for EGD today. May need prn Atropine. KATE RN and Dr Arana Subjective Subjective Transferred to [facility]. Was bradycardic with hr 43 and 2 second pause. NPO for EGD. Nonverbal Objective Last 24 Hour Vital Signs Date Time Temp Pulse Resp B/P (MAP) Pulse Ox O2 Delivery O2 Flow Rate FiO2 07/03/17 04:00 98.1 55 19 143/58 99 Nasal Cannula 2.0 07/03/17 00:00 98.1 59 20 156/76 99 Nasal Cannula 2.0 07/02/17 20:00 98.1 51 22 149/67 100 07/02/17 18:17 58 07/02/17 16:10 96.6 63 18 157/77 95 07/02/17 16:00 58 07/02/17 12:00 96.2 62 18 147/69 95 07/02/17 12:00 98.0 59 18 159/65 95 Intake and Output 07/02/17 07/03/17 19:00 07:00 Intake Total 120 ml Output Total 3 ml Balance 120 ml -3 ml Intake IV Total 120 ml Output Urine Total 3 ml # Voids 7 # Bowel Movements 2 Laboratory Tests Test 07/02/17 12:40 07/02/17 19:10 07/03/17 03:00 Troponin I 0.103 ng/mL (0.000-0.056) 0.146 ng/mL (0.000-0.056) 0.149 ng/mL (0.000-0.056) White Blood Count 6.9 K/UL (4.8-10.8) Red Blood Count 3.08 M/UL (4.20-5.40) L Hemoglobin 9.0 G/DL (12.0-16.0) L Hematocrit 27.0 % (37.0-47.0) L Mean Corpuscular Volume 88 FL (80-99) Mean Corpuscular Hemoglobin 29.2 PG (27.0-31.0) Mean Corpuscular Hemoglobin Concent 33.3 G/DL (32.0-36.0) Red Cell Distribution Width 19.7 % (11.6-14.8) H Platelet Count 178 K/UL (150-450) Mean Platelet Volume 6.6 FL (6.5-10.1) Neutrophils (%) (Auto) 83.3 % (45.0-75.0) H Lymphocytes (%) (Auto) 7.6 % (20.0-45.0) L Monocytes (%) (Auto) 7.6 % (1.0-10.0) Eosinophils (%) (Auto) 0.5 % (0.0-3.0) Basophils (%) (Auto) 0.9 % (0.0-2.0) Sodium Level 139 MMOL/L (136-145) Potassium Level 3.0 MMOL/L (3.5-5.1) L Chloride Level 107 MMOL/L (98-107) Carbon Dioxide Level 23 MMOL/L (21-32) Anion Gap 9 mmol/L (5-15) Blood Urea Nitrogen 7 mg/dL (7-18) Creatinine 0.5 MG/DL (0.55-1.30) L Estimat Glomerular Filtration Rate mL/min (>60) Glucose Level 97 MG/DL (74-106) Calcium Level 8.0 MG/DL (8.5-10.1) L Pro-B-Type Natriuretic Peptide 3235 pg/mL (0-125) H Thyroid Stimulating Hormone (TSH) 1.658 uiU/mL (0.358-3.740) Free Thyroxine 1.29 NG/DL (0.76-1.46) Microbiology Date/Time Source Procedure Growth Status 06/30/17 12:40 Blood Blood Culture - Preliminary Resulted 06/30/17 12:30 Blood Blood Culture - Preliminary Resulted 06/30/17 17:00 Nasal Nares MRSA Culture - Final NO METHICILLIN RESISTANT STAPH AUREUS... Complete 06/30/17 17:00 Rectum VRE Culture - Final NO VANCOMYCIN RESISTANT ENTEROCOCCUS ... Complete Objective HEAD AND NECK: No JVD. LUNGS: Decreased breath sounds. CARDIOVASCULAR: Bradycardic S1 and S2 with no gallop. ABDOMEN: Status post G-tube. EXTREMITIES: No pitting edema. GEOFFREY AGUERO Jul 03, 2017 09:25
[2017-07-03] MEDS ORDERED: Potassium Chloride 40 MEQ in Sodium Chloride 500ML 550 ML IVPB ONE (10:45)
--- NOTE | 2017-07-03 11:00 | History and Physical Report ---
NOTE: POOR AUDIO QUALITY HISTORY OF PRESENT ILLNESS: This is an elderly 81-year-old female, who came to the emergency room for generalized weakness, fever, hypertension. The patient also was found to have severe anemia. The patient currently cannot give any history. PAST MEDICAL HISTORY: Significant for generalized weakness. SOCIAL HISTORY: The patient lives at assisted. PHYSICAL EXAMINATION: GENERAL: This is an elderly female, who is currently nonverbal, looks sick. VITAL SIGNS: Blood pressure is 124/70, pulse 74, and respiratory rate 18. SKIN: Poor skin turgor. . CARDIOVASCULAR: Regular rhythm. No gallop. No murmur. ABDOMEN: Soft. EXTREMITIES: No . . ASSESSMENT: 1. Sepsis. 2. Failure to thrive. 3. Anemia. 4. Hypertension. 5. Left labial cyst. PLAN: 1. We will admit to medical floor. 2. The patient is a DNR. 3. Type and cross and transfuse 2 units. Consider Hematology/Oncology consult. Hilario Cooper M.D. DR: Smitha JOB#: [id number] CC:
--- NOTE | 2017-07-03 11:28 | GI Progress Note ---
Assessment/Plan Problems: (1) Hypovolemic shock ICD Codes: R57.1 - Hypovolemic shock SNOMED: 45712746 (2) Encephalopathy ICD Codes: G93.40 - Encephalopathy, unspecified SNOMED: 05720270 (3) Severe malnutrition ICD Codes: E43 - Unspecified severe protein-calorie malnutrition SNOMED: 80357792 (4) Acute blood loss anemia ICD Codes: D62 - Acute posthemorrhagic anemia SNOMED: 046142794 (5) Dehydration ICD Codes: E86.0 - Dehydration SNOMED: 59105095 (6) Dysphagia ICD Codes: R13.10 - Dysphagia, unspecified SNOMED: 21905408, 166814967 (7) GI bleed ICD Codes: K92.2 - Gastrointestinal hemorrhage, unspecified SNOMED: 25735055 (8) Severe anemia ICD Codes: D64.9 - Anemia, unspecified SNOMED: 805983036 (9) Upper gastrointestinal bleed ICD Codes: K92.2 - Gastrointestinal hemorrhage, unspecified SNOMED: 91445975 Status: unchanged Status Narrative Discussed with Dr. Arana. Assessment/Plan EGD on hold for now due to recent A-fib and bradycardia, follow up cardiac recs. resume GTFs per RD prn transfusions ppi bid venofer fu labs Subjective Subjective limited Objective Last 24 Hour Vital Signs Date Time Temp Pulse Resp B/P (MAP) Pulse Ox O2 Delivery O2 Flow Rate FiO2 07/03/17 08:00 97.7 56 19 154/67 98 Nasal Cannula 2.0 07/03/17 04:00 98.1 55 19 143/58 99 Nasal Cannula 2.0 07/03/17 00:00 98.1 59 20 156/76 99 Nasal Cannula 2.0 07/02/17 20:00 98.1 51 22 149/67 100 07/02/17 18:17 58 07/02/17 16:10 96.6 63 18 157/77 95 07/02/17 16:00 58 07/02/17 12:00 96.2 62 18 147/69 95 07/02/17 12:00 98.0 59 18 159/65 95 Intake and Output 07/02/17 07/03/17 19:00 07:00 Intake Total 120 ml Output Total 3 ml Balance 120 ml -3 ml Intake IV Total 120 ml Output Urine Total 3 ml # Voids 7 # Bowel Movements 2 Laboratory Tests Test 07/02/17 12:40 07/02/17 19:10 07/03/17 03:00 Troponin I 0.103 ng/mL (0.000-0.056) 0.146 ng/mL (0.000-0.056) 0.149 ng/mL (0.000-0.056) White Blood Count 6.9 K/UL (4.8-10.8) Red Blood Count 3.08 M/UL (4.20-5.40) L Hemoglobin 9.0 G/DL (12.0-16.0) L Hematocrit 27.0 % (37.0-47.0) L Mean Corpuscular Volume 88 FL (80-99) Mean Corpuscular Hemoglobin 29.2 PG (27.0-31.0) Mean Corpuscular Hemoglobin Concent 33.3 G/DL (32.0-36.0) Red Cell Distribution Width 19.7 % (11.6-14.8) H Platelet Count 178 K/UL (150-450) Mean Platelet Volume 6.6 FL (6.5-10.1) Neutrophils (%) (Auto) 83.3 % (45.0-75.0) H Lymphocytes (%) (Auto) 7.6 % (20.0-45.0) L Monocytes (%) (Auto) 7.6 % (1.0-10.0) Eosinophils (%) (Auto) 0.5 % (0.0-3.0) Basophils (%) (Auto) 0.9 % (0.0-2.0) Sodium Level 139 MMOL/L (136-145) Potassium Level 3.0 MMOL/L (3.5-5.1) L Chloride Level 107 MMOL/L (98-107) Carbon Dioxide Level 23 MMOL/L (21-32) Anion Gap 9 mmol/L (5-15) Blood Urea Nitrogen 7 mg/dL (7-18) Creatinine 0.5 MG/DL (0.55-1.30) L Estimat Glomerular Filtration Rate mL/min (>60) Glucose Level 97 MG/DL (74-106) Calcium Level 8.0 MG/DL (8.5-10.1) L Pro-B-Type Natriuretic Peptide 3235 pg/mL (0-125) H Thyroid Stimulating Hormone (TSH) 1.658 uiU/mL (0.358-3.740) Free Thyroxine 1.29 NG/DL (0.76-1.46) Height (Feet): 5 Height (Inches): 5.00 Weight (Pounds): 110 General Appearance: confused, thin Cardiovascular: normal rate Abdominal Exam: soft, GT site - c/d/i Amira Rios N.P. Jul 03, 2017 11:28
[2017-07-03 12:00] VITALS: BP 155/74
--- NOTE | 2017-07-03 14:27 | Infectious Diseases Prog Note ---
Assessment/Plan Problems: (1) Septic shock Assessment & Plan: with gram positive cocci , source? GI VS skin wound . will start vancomycin and cefepime empiric coverage pending identification and sensitivity (2) Hypotension (arterial) Assessment & Plan: suspect due to sepsis and anemia , continue blood pressure support and antibiotics (3) Upper gastrointestinal bleed Assessment & Plan: monitor H/H, transfuse as needed , GI is following (4) Severe anemia Assessment & Plan: suspect due to GI blood loss , monitor H/H, transfuse as needed Subjective Allergies: Coded Allergies: No Known Allergies (Unverified , 06/30/17) Objective Vital Signs Last 24 Hour Vital Signs Date Time Temp Pulse Resp B/P (MAP) Pulse Ox O2 Delivery O2 Flow Rate FiO2 07/03/17 12:00 97.3 61 19 155/74 98 Nasal Cannula 2.0 07/03/17 08:00 97.7 56 19 154/67 98 Nasal Cannula 2.0 07/03/17 04:00 98.1 55 19 143/58 99 Nasal Cannula 2.0 07/03/17 00:00 98.1 59 20 156/76 99 Nasal Cannula 2.0 07/02/17 20:00 98.1 51 22 149/67 100 07/02/17 18:17 58 07/02/17 16:10 96.6 63 18 157/77 95 07/02/17 16:00 58 Height (Feet): 5 Height (Inches): 5.00 Weight (Pounds): 110 Microbiology Date/Time Source Procedure Growth Status 06/30/17 17:00 Nasal Nares MRSA Culture - Final NO METHICILLIN RESISTANT STAPH AUREUS... Complete 06/30/17 17:00 Rectum VRE Culture - Final NO VANCOMYCIN RESISTANT ENTEROCOCCUS ... Complete Laboratory Tests Test 07/02/17 19:10 07/03/17 03:00 Troponin I 0.146 ng/mL (0.000-0.056) 0.149 ng/mL (0.000-0.056) White Blood Count 6.9 K/UL (4.8-10.8) Red Blood Count 3.08 M/UL (4.20-5.40) L Hemoglobin 9.0 G/DL (12.0-16.0) L Hematocrit 27.0 % (37.0-47.0) L Mean Corpuscular Volume 88 FL (80-99) Mean Corpuscular Hemoglobin 29.2 PG (27.0-31.0) Mean Corpuscular Hemoglobin Concent 33.3 G/DL (32.0-36.0) Red Cell Distribution Width 19.7 % (11.6-14.8) H Platelet Count 178 K/UL (150-450) Mean Platelet Volume 6.6 FL (6.5-10.1) Neutrophils (%) (Auto) 83.3 % (45.0-75.0) H Lymphocytes (%) (Auto) 7.6 % (20.0-45.0) L Monocytes (%) (Auto) 7.6 % (1.0-10.0) Eosinophils (%) (Auto) 0.5 % (0.0-3.0) Basophils (%) (Auto) 0.9 % (0.0-2.0) Sodium Level 139 MMOL/L (136-145) Potassium Level 3.0 MMOL/L (3.5-5.1) L Chloride Level 107 MMOL/L (98-107) Carbon Dioxide Level 23 MMOL/L (21-32) Anion Gap 9 mmol/L (5-15) Blood Urea Nitrogen 7 mg/dL (7-18) Creatinine 0.5 MG/DL (0.55-1.30) L Estimat Glomerular Filtration Rate mL/min (>60) Glucose Level 97 MG/DL (74-106) Calcium Level 8.0 MG/DL (8.5-10.1) L Pro-B-Type Natriuretic Peptide 3235 pg/mL (0-125) H Thyroid Stimulating Hormone (TSH) 1.658 uiU/mL (0.358-3.740) Free Thyroxine 1.29 NG/DL (0.76-1.46) Current Medications Medications (Trade) Dose Ordered Sig/Brianna Route PRN Reason Start Time Stop Time Status Last Admin Dose Admin Dextrose/Sodium Chloride 1,000 ml @ 60 mls/hr [id number] IV 07/02/17 12:45 07/30/17 12:44 07/03/17 06:17 Iron Sucrose 100 mg/Sodium Chloride 60 ml @ 240 mls/hr BEDTIME IV 07/02/17 21:00 07/04/17 21:14 07/02/17 21:36 Pantoprazole (Protonix) 40 mg EVERY 12 HOURS IVP 07/02/17 21:00 07/31/17 09:59 07/03/17 08:12 Potassium Chloride 40 meq/ Sodium Chloride 570 ml @ 142.5 mls/ hr ONCE ONCE IVPB 07/03/17 10:45 07/03/17 14:44 07/03/17 11:54 Godwin Weiss M.D. Jul 03, 2017 14:27
[2017-07-03] MEDS ORDERED: Cefepime HCl 2 GM in NS 55 ML IVPB SCH (15:30)
[2017-07-03 16:00] VITALS: BP 156/73
[2017-07-03] MEDS: Vancomycin 750mg/NS 250ml IVPB SCH (16:32)
--- NOTE | 2017-07-03 17:17 | Cardiology Report ---
APPROVED REPORT EKG Measurement Heart [id number] Sinus bradycardia Low voltage QRS Nonspecific T wave abnormality Abnormal ECG
--- NOTE | 2017-07-03 18:14 | Nephrology Progress Note ---
Assessment/Plan Problem List: (1) Dysphagia (2) PEG (percutaneous endoscopic gastrostomy) status (3) Severe anemia (4) Dehydration (5) GI bleed (6) Hypotension (arterial) (7) Upper gastrointestinal bleed (8) Bradycardia (9) Acute blood loss anemia (10) Severe malnutrition Plan H&H improved post transfusion, monitor Replete K Monitor lytes and correct prn Continue daily PPI GI, ID, cardio, and Hematology following Abx per ID AM labs Subjective ROS Limited/Unobtainable: Yes Subjective In bed, in no apparent distress, G-tube feeding ongoing Objective Objective Last 24 Hour Vital Signs Date Time Temp Pulse Resp B/P (MAP) Pulse Ox O2 Delivery O2 Flow Rate FiO2 07/03/17 12:00 97.3 61 19 155/74 98 Nasal Cannula 2.0 07/03/17 08:00 97.7 56 19 154/67 98 Nasal Cannula 2.0 07/03/17 04:00 98.1 55 19 143/58 99 Nasal Cannula 2.0 07/03/17 00:00 98.1 59 20 156/76 99 Nasal Cannula 2.0 07/02/17 20:00 98.1 51 22 149/67 100 07/02/17 18:17 58 Intake and Output 07/02/17 07/03/17 19:00 07:00 Intake Total 120 ml Output Total 3 ml Balance 120 ml -3 ml Intake IV Total 120 ml Output Urine Total 3 ml # Voids 7 # Bowel Movements 2 Laboratory Tests 07/02/17 19:10: Troponin I 0.146H 07/03/17 03:00: Troponin I 0.149H, White Blood Count 6.9, Red Blood Count 3.08L, Hemoglobin 9.0L , Hematocrit 27.0L, Mean Corpuscular Volume 88, Mean Corpuscular Hemoglobin 29.2 , Mean Corpuscular Hemoglobin Concent 33.3, Red Cell Distribution Width 19.7H, Platelet Count 178, Mean Platelet Volume 6.6, Neutrophils (%) (Auto) 83.3H, Lymphocytes (%) (Auto) 7.6L, Monocytes (%) (Auto) 7.6, Eosinophils (%) (Auto) 0.5, Basophils (%) (Auto) 0.9, Sodium Level 139, Potassium Level 3.0L, Chloride Level 107, Carbon Dioxide Level 23, Anion Gap 9, Blood Urea Nitrogen 7, Creatinine 0.5L, Estimat Glomerular Filtration Rate , Glucose Level 97, Calcium Level 8.0L, Pro-B-Type Natriuretic Peptide 3235H, Thyroid Stimulating Hormone ( TSH) 1.658, Free Thyroxine 1.29 Height (Feet): 5 Height (Inches): 5.00 Weight (Pounds): 110 General Appearance: no apparent distress, alert EENT: normal ENT inspection Neck: supple Cardiovascular: no JVD Respiratory/Chest: no respiratory distress, decreased breath sounds Abdomen: soft, other - PEG tube noted Extremities: non-tender, other - contracture Neurologic: disoriented Leyla Jordan N.P. Jul 03, 2017 18:14
[2017-07-03 20:00] VITALS: BP 155/77
[2017-07-03] MEDS: Iron Sucrose 100 MG in NS 55 ML IV SCH (20:32)
--- NOTE | 2017-07-03 21:01 | Consultation ---
DATE OF CONSULTATION: 07/03/2017 INFECTIOUS DISEASE CONSULTATION CONSULTING PHYSICIAN: Godwin Weiss M.D. REFERRING PHYSICIAN: Kirt Mcbride REASON FOR CONSULTATION: Sepsis, hypotension due to gram-positive cocci in pairs and clusters, recommendation for antibiotics treatment and further management HISTORY OF PRESENT ILLNESS: The patient is an 82-year-old female, a [employer] resident, with past medical history significant for COPD, dysphagia, status post PEG tube placement, was transferred to [facility] emergency room for hypotension and melena. The patient was found to be severely anemic in the emergency room with hemoglobin of 3. She was transfused 2 units of red blood cells and admitted to the hospital for further evaluation and workup of her anemia. The patient also had a blood culture done on admission date and now both sets are growing gram-positive cocci in pairs, chains, and clusters. So, Infectious Disease consultation was requested for further evaluation and management of her sepsis and bacteremia. As of note, the patient is poor historian, cannot provide any history. History was mainly obtained from the medical record and nursing staff. PAST MEDICAL HISTORY: Significant for COPD, dementia, and dysphagia. PAST SURGICAL HISTORY: She had a PEG tube placement a week ago. ALLERGIES: She has no known drug allergy. SOCIAL HISTORY: The patient is a resident of correction. No recent drugs, tobacco, or alcohol. FAMILY HISTORY: Unable to obtain. MEDICATIONS: The patient currently on iron sucrose, pantoprazole, and sodium chloride. LABORATORY DATA: Labs showed white count of 6.9, hemoglobin of 9, and platelet count of 178. BUN of 7, creatinine of 0.5, calcium of 8. Troponin of 0.149. Urinalysis showed +1 leukocyte esterase, WBC 2 to 4. Serology was negative for HIV antibody screening and hepatitis B surface antigen and core IgM and hepatitis A IgM and hepatitis C antibody. IMAGING: Chest x-ray on 05/30/2017 showed no acute process. Echocardiogram on 06/01/2017 no valve vegetations. PHYSICAL EXAMINATION: VITAL SIGNS: Temperature 97.3, pulse 61, respirations 19, blood pressure 155/74, and saturation 98% on 2 liters nasal cannula. GENERAL: Elderly female, contracted, lying in bed, unresponsive, not in acute distress. HEENT: Normocephalic and atraumatic. Unable to assess pupils or oral cavity. The patient does not follow commands. NECK: Supple. No lymphadenopathy. CARDIOVASCULAR: She is bradycardic. S1, S2 normal. No murmur or gallop. LUNGS: Clear bilaterally. Diminished breathing sounds at the bases. No wheezing or rhonchi. ABDOMEN: Soft, nontender, and nondistended. Positive bowel sounds. PEG tube site leaking feeding liquids around it, but no pus. No redness or necrosis. EXTREMITIES: Contracted. No edema. No cyanosis. No clubbing. ASSESSMENT AND RECOMMENDATION: 1. Septic shock with gram-positive cocci. Source unclear at this point, whether gastrointestinal versus skin wound. The patient will be started on vancomycin and cefepime empiric coverage for now pending identification and sensitivity of her blood culture. Echocardiogram already was none and did not show any evidence of vegetation. We will repeat culture tomorrow to confirm clearance. 2. Hypotension, suspect due to sepsis and anemia, status post blood transfusion, improving. Continue blood pressure support, antibiotics, and blood transfusion as needed. 3. Gastrointestinal bleeding with melena. Rule out upper gastrointestinal bleeding. Continue H and H monitor. Transfuse as needed. Gastroenterology is following. May need EGD. 4. Severe anemia due to gastrointestinal blood loss. Monitor hemoglobin and hematocrit. Transfuse blood as needed. Gastroenterology team is following. Godwin Weiss M.D. DR: CAIN JOB#: [id number] CC:
--- NOTE | 2017-07-03 23:36 | General Progress Note ---
Assessment/Plan Assessment/Plan 1. Anemia due to upper gastrointestinal bleed. --> Obtain anemia workup. --> Hemoglobin goal is above 7. --> EGD canceled, no consent, so she was scheduled for Saturday. --> The patient is status post blood transfusion. 2. Failure to thrive, status post percutaneous endoscopic gastrostomy tube. --> monitor 3. Dehydration. 4. Anemia of iron deficiency. --> Monitor closely. 5. Upper gastrointestinal bleed. Subjective Date patient seen: Jul 02, 2017 Constitutional: Denies: no symptoms, chills, diaphoresis, fever, malaise, weakness, other HEENT: Denies: no symptoms, eye pain, blurred vision, tearing, double vision, ear pain, ear discharge, nose pain, nose congestion, throat pain, throat swelling, mouth pain, mouth swelling, other Cardiovascular: Denies: no symptoms, chest pain, edema, irregular heart rate, lightheadedness, palpitations, syncope, other Respiratory: Denies: no symptoms, cough, orthopnea, shortness of breath, SOB with excertion, SOB at rest, sputum, stridor, wheezing, other Gastrointestinal/Abdominal: Denies: no symptoms, abdomen distended, abdominal pain, black stools, tarry stools, blood in stool, constipated, diarrhea, difficulty swallowing, nausea, poor appetite, poor fluid intake, rectal bleeding , vomiting, other Genitourinary: Denies: no symptoms, burning, discharge, frequency, flank pain, hematuria, incontinence, pain, urgency, other Hematologic/Lymphatic: Reports: anemia Allergies: Coded Allergies: No Known Allergies (Unverified , 06/30/17) Subjective S/P PRBC. No adverse events. Objective Last 24 Hour Vital Signs Date Time Temp Pulse Resp B/P (MAP) Pulse Ox O2 Delivery O2 Flow Rate FiO2 07/03/17 20:00 98.0 58 20 155/77 100 Nasal Cannula 2.0 07/03/17 16:00 98.2 64 18 156/73 98 Nasal Cannula 2.0 07/03/17 16:00 59 07/03/17 12:00 97.3 61 19 155/74 98 Nasal Cannula 2.0 07/03/17 08:00 97.7 56 19 154/67 98 Nasal Cannula 2.0 07/03/17 04:00 98.1 55 19 143/58 99 Nasal Cannula 2.0 07/03/17 00:00 98.1 59 20 156/76 99 Nasal Cannula 2.0 Intake and Output 07/02/17 07/03/17 19:00 07:00 Intake Total 120 ml Output Total 3 ml Balance 120 ml -3 ml Intake IV Total 120 ml Output Urine Total 3 ml # Voids 7 # Bowel Movements 2 Laboratory Tests 07/03/17 03:00: White Blood Count 6.9, Red Blood Count 3.08L, Hemoglobin 9.0L, Hematocrit 27.0L , Mean Corpuscular Volume 88, Mean Corpuscular Hemoglobin 29.2, Mean Corpuscular Hemoglobin Concent 33.3, Red Cell Distribution Width 19.7H, Platelet Count 178, Mean Platelet Volume 6.6, Neutrophils (%) (Auto) 83.3H, Lymphocytes (%) (Auto) 7.6L, Monocytes (%) (Auto) 7.6, Eosinophils (%) (Auto) 0.5, Basophils (%) (Auto) 0.9, Sodium Level 139, Potassium Level 3.0L, Chloride Level 107, Carbon Dioxide Level 23, Anion Gap 9, Blood Urea Nitrogen 7, Creatinine 0.5L, Estimat Glomerular Filtration Rate , Glucose Level 97, Calcium Level 8.0L, Troponin I 0.149H, Pro-B-Type Natriuretic Peptide 3235H, Thyroid Stimulating Hormone (TSH) 1.658, Free Thyroxine 1.29 Height (Feet): 5 Height (Inches): 5.00 Weight (Pounds): 110 Joaquim Dwyer Jul 03, 2017 23:36
--- NOTE | 2017-07-03 23:37 | General Progress Note ---
Assessment/Plan Assessment/Plan #. Anemia due to upper gastrointestinal bleed. --> Pending anemia workup. --> Hemoglobin goal is above 7. --> EGD canceled, no consent, so she was scheduled for Saturday. --> Hemoglobin >9 since blood transfusion 2 days ago #. Anemia of iron deficiency. --> Monitor closely. --> Anemia workup pending. #. Failure to thrive, status post percutaneous endoscopic gastrostomy tube. --> monitor #. Dehydration. #. Upper gastrointestinal bleed. --> S/P PRBC Subjective Date patient seen: Jul 03, 2017 Constitutional: Denies: no symptoms, chills, diaphoresis, fever, malaise, weakness, other HEENT: Denies: no symptoms, eye pain, blurred vision, tearing, double vision, ear pain, ear discharge, nose pain, nose congestion, throat pain, throat swelling, mouth pain, mouth swelling, other Cardiovascular: Denies: no symptoms, chest pain, edema, irregular heart rate, lightheadedness, palpitations, syncope, other Respiratory: Denies: no symptoms, cough, orthopnea, shortness of breath, SOB with excertion, SOB at rest, sputum, stridor, wheezing, other Gastrointestinal/Abdominal: Denies: no symptoms, abdomen distended, abdominal pain, black stools, tarry stools, blood in stool, constipated, diarrhea, difficulty swallowing, nausea, poor appetite, poor fluid intake, rectal bleeding , vomiting, other Genitourinary: Denies: no symptoms, burning, discharge, frequency, flank pain, hematuria, incontinence, pain, urgency, other Hematologic/Lymphatic: Reports: anemia Allergies: Coded Allergies: No Known Allergies (Unverified , 06/30/17) Subjective S/P PRBC. No adverse events. Objective Last 24 Hour Vital Signs Date Time Temp Pulse Resp B/P (MAP) Pulse Ox O2 Delivery O2 Flow Rate FiO2 07/03/17 20:00 98.0 58 20 155/77 100 Nasal Cannula 2.0 07/03/17 16:00 98.2 64 18 156/73 98 Nasal Cannula 2.0 07/03/17 16:00 59 07/03/17 12:00 97.3 61 19 155/74 98 Nasal Cannula 2.0 07/03/17 08:00 97.7 56 19 154/67 98 Nasal Cannula 2.0 07/03/17 04:00 98.1 55 19 143/58 99 Nasal Cannula 2.0 07/03/17 00:00 98.1 59 20 156/76 99 Nasal Cannula 2.0 Intake and Output 07/02/17 07/03/17 19:00 07:00 Intake Total 120 ml Output Total 3 ml Balance 120 ml -3 ml Intake IV Total 120 ml Output Urine Total 3 ml # Voids 7 # Bowel Movements 2 Laboratory Tests 07/03/17 03:00: White Blood Count 6.9, Red Blood Count 3.08L, Hemoglobin 9.0L, Hematocrit 27.0L , Mean Corpuscular Volume 88, Mean Corpuscular Hemoglobin 29.2, Mean Corpuscular Hemoglobin Concent 33.3, Red Cell Distribution Width 19.7H, Platelet Count 178, Mean Platelet Volume 6.6, Neutrophils (%) (Auto) 83.3H, Lymphocytes (%) (Auto) 7.6L, Monocytes (%) (Auto) 7.6, Eosinophils (%) (Auto) 0.5, Basophils (%) (Auto) 0.9, Sodium Level 139, Potassium Level 3.0L, Chloride Level 107, Carbon Dioxide Level 23, Anion Gap 9, Blood Urea Nitrogen 7, Creatinine 0.5L, Estimat Glomerular Filtration Rate , Glucose Level 97, Calcium Level 8.0L, Troponin I 0.149H, Pro-B-Type Natriuretic Peptide 3235H, Thyroid Stimulating Hormone (TSH) 1.658, Free Thyroxine 1.29 Height (Feet): 5 Height (Inches): 5.00 Weight (Pounds): 110 Joaquim Dwyer Jul 03, 2017 23:37
[2017-07-04] VITALS: BP 142/69
[2017-07-04 04:00] VITALS: BP 144/59
[2017-07-04 07:48] LABS: BASOPHILS % (AUTO) 0.8 % (0.0-2.0); EOSINOPHILS % (AUTO) 0.5 % (0.0-3.0); HEMATOCRIT 27.8 % (37.0-47.0); HEMOGLOBIN 9.5 G/DL (12.0-16.0); MEAN CORPUSCULAR VOLUME 90 FL (80-99); MONOCYTES % (AUTO) 11.9 % (1.0-10.0); NEUTROPHILS % (AUTO) 73.8 % (45.0-75.0); PLATELET COUNT 207 K/UL (150-450); RED BLOOD COUNT 3.07 M/UL (4.20-5.40); RED CELL DISTRIBUTION WIDTH 20.4 % (11.6-14.8); WHITE BLOOD COUNT 6.1 K/UL (4.8-10.8)
[2017-07-04 07:57] LABS: ANION GAP 9 mmol/L (5-15); BLOOD UREA NITROGEN 7 mg/dL (7-18); CARBON DIOXIDE 23 MMOL/L (21-32); CHLORIDE 108 MMOL/L (98-107); CREATININE 0.5 MG/DL (0.55-1.30); PHOSPHORUS 2.7 MG/DL (2.5-4.9); POTASSIUM 3.7 MMOL/L (3.5-5.1); SODIUM 140 MMOL/L (136-145)
[2017-07-04 08:00] VITALS: BP 161/74
[2017-07-04] MEDS: Pantoprazole Inj IVP SCH ×2 (09:07→21:52)
--- NOTE | 2017-07-04 10:06 | GI Progress Note ---
Assessment/Plan Problems: (1) Hypovolemic shock ICD Codes: R57.1 - Hypovolemic shock SNOMED: 60184345 (2) Encephalopathy ICD Codes: G93.40 - Encephalopathy, unspecified SNOMED: 02605963 (3) Severe malnutrition ICD Codes: E43 - Unspecified severe protein-calorie malnutrition SNOMED: 36811868 (4) Acute blood loss anemia ICD Codes: D62 - Acute posthemorrhagic anemia SNOMED: 601091678 (5) Dehydration ICD Codes: E86.0 - Dehydration SNOMED: 38419385 (6) Dysphagia ICD Codes: R13.10 - Dysphagia, unspecified SNOMED: 01063563, 539205329 (7) GI bleed ICD Codes: K92.2 - Gastrointestinal hemorrhage, unspecified SNOMED: 08330050 (8) Severe anemia ICD Codes: D64.9 - Anemia, unspecified SNOMED: 820778494 (9) Upper gastrointestinal bleed ICD Codes: K92.2 - Gastrointestinal hemorrhage, unspecified SNOMED: 16294572 Status: unchanged Status Narrative Discussed with Dr. Arana. Assessment/Plan EGD deferred due to bradycardia, will only scope in emergent case - stable H&H past 2 days - OB stool r/o GI bleed resume GTFs per RD prn transfusions ppi bid venofer fu labs Subjective Subjective limited Objective Last 24 Hour Vital Signs Date Time Temp Pulse Resp B/P (MAP) Pulse Ox O2 Delivery O2 Flow Rate FiO2 07/04/17 08:00 53 07/04/17 08:00 98.4 51 18 161/74 99 Nasal Cannula 2.0 07/04/17 04:00 98.4 47 20 144/59 96 Nasal Cannula 2.0 07/04/17 04:00 41 07/04/17 00:00 98.1 60 20 142/69 100 Nasal Cannula 2.0 07/04/17 00:00 60 07/03/17 20:00 58 07/03/17 20:00 98.0 58 20 155/77 100 Nasal Cannula 2.0 07/03/17 16:00 98.2 64 18 156/73 98 Nasal Cannula 2.0 07/03/17 16:00 59 07/03/17 12:00 97.3 61 19 155/74 98 Nasal Cannula 2.0 Intake and Output 07/03/17 07/04/17 19:00 07:00 Intake Total 10 ml 1490 ml Balance 10 ml 1490 ml Intake IV Total 1440 ml Tube Feeding 10 ml 50 ml # Voids 3 3 Laboratory Tests Test 07/04/17 06:40 White Blood Count 6.1 K/UL (4.8-10.8) Red Blood Count 3.07 M/UL (4.20-5.40) L Hemoglobin 9.5 G/DL (12.0-16.0) L Hematocrit 27.8 % (37.0-47.0) L Mean Corpuscular Volume 90 FL (80-99) Mean Corpuscular Hemoglobin 31.0 PG (27.0-31.0) Mean Corpuscular Hemoglobin Concent 34.3 G/DL (32.0-36.0) Red Cell Distribution Width 20.4 % (11.6-14.8) H Platelet Count 207 K/UL (150-450) Mean Platelet Volume 6.8 FL (6.5-10.1) Neutrophils (%) (Auto) 73.8 % (45.0-75.0) Lymphocytes (%) (Auto) 13.0 % (20.0-45.0) L Monocytes (%) (Auto) 11.9 % (1.0-10.0) H Eosinophils (%) (Auto) 0.5 % (0.0-3.0) Basophils (%) (Auto) 0.8 % (0.0-2.0) Sodium Level 140 MMOL/L (136-145) Potassium Level 3.7 MMOL/L (3.5-5.1) Chloride Level 108 MMOL/L (98-107) H Carbon Dioxide Level 23 MMOL/L (21-32) Anion Gap 9 mmol/L (5-15) Blood Urea Nitrogen 7 mg/dL (7-18) Creatinine 0.5 MG/DL (0.55-1.30) L Estimat Glomerular Filtration Rate mL/min (>60) Glucose Level 101 MG/DL (74-106) Calcium Level 8.0 MG/DL (8.5-10.1) L Phosphorus Level 2.7 MG/DL (2.5-4.9) Magnesium Level 1.7 MG/DL (1.8-2.4) L Height (Feet): 5 Height (Inches): 5.00 Weight (Pounds): 110 General Appearance: no apparent distress, alert, thin Respiratory/Chest: normal breath sounds, no respiratory distress Abdominal Exam: normal bowel sounds, non tender, soft Objective no active s/sx of bleeding Amira Rios N.P. Jul 04, 2017 10:06
--- NOTE | 2017-07-04 10:24 | Cardiac Electrophysiology PN ---
Assessment/Plan Assessment/Plan 1. Atrial fibrillation based on EKG. There is no prior history per her records. Remained in Sinus kan 2. Troponin leak. Levels are flat likely due to demand ischemia in view of Hb as low as 3. Echo Nl EF Off aspirin for Hb 3. Off beta nola for bradycardia 3. Recurrent Bradycardia based on records from [facility] and here also. Asymptomatic. HR now 50s. Off any PANDYA or AVN nola. TFT showed no hypothyroidism 4. Dysphagia, status post PEG placement by Dr. Amado at [facility] 06/23/17.GT feeding resumed 5. Profound anemia with hemoglobin around 3. S/P PRBC DW RN Subjective Subjective Still bradycardic as low as 40s. EGD cancelled for instability. GT feeding resumed. Nonverbal Objective Last 24 Hour Vital Signs Date Time Temp Pulse Resp B/P (MAP) Pulse Ox O2 Delivery O2 Flow Rate FiO2 07/04/17 08:00 53 07/04/17 08:00 98.4 51 18 161/74 99 Nasal Cannula 2.0 07/04/17 04:00 98.4 47 20 144/59 96 Nasal Cannula 2.0 07/04/17 04:00 41 07/04/17 00:00 98.1 60 20 142/69 100 Nasal Cannula 2.0 07/04/17 00:00 60 07/03/17 20:00 58 07/03/17 20:00 98.0 58 20 155/77 100 Nasal Cannula 2.0 07/03/17 16:00 98.2 64 18 156/73 98 Nasal Cannula 2.0 07/03/17 16:00 59 07/03/17 12:00 97.3 61 19 155/74 98 Nasal Cannula 2.0 Intake and Output 07/03/17 07/04/17 19:00 07:00 Intake Total 10 ml 1490 ml Balance 10 ml 1490 ml Intake IV Total 1440 ml Tube Feeding 10 ml 50 ml # Voids 3 3 Laboratory Tests Test 07/04/17 06:40 White Blood Count 6.1 K/UL (4.8-10.8) Red Blood Count 3.07 M/UL (4.20-5.40) L Hemoglobin 9.5 G/DL (12.0-16.0) L Hematocrit 27.8 % (37.0-47.0) L Mean Corpuscular Volume 90 FL (80-99) Mean Corpuscular Hemoglobin 31.0 PG (27.0-31.0) Mean Corpuscular Hemoglobin Concent 34.3 G/DL (32.0-36.0) Red Cell Distribution Width 20.4 % (11.6-14.8) H Platelet Count 207 K/UL (150-450) Mean Platelet Volume 6.8 FL (6.5-10.1) Neutrophils (%) (Auto) 73.8 % (45.0-75.0) Lymphocytes (%) (Auto) 13.0 % (20.0-45.0) L Monocytes (%) (Auto) 11.9 % (1.0-10.0) H Eosinophils (%) (Auto) 0.5 % (0.0-3.0) Basophils (%) (Auto) 0.8 % (0.0-2.0) Sodium Level 140 MMOL/L (136-145) Potassium Level 3.7 MMOL/L (3.5-5.1) Chloride Level 108 MMOL/L (98-107) H Carbon Dioxide Level 23 MMOL/L (21-32) Anion Gap 9 mmol/L (5-15) Blood Urea Nitrogen 7 mg/dL (7-18) Creatinine 0.5 MG/DL (0.55-1.30) L Estimat Glomerular Filtration Rate mL/min (>60) Glucose Level 101 MG/DL (74-106) Calcium Level 8.0 MG/DL (8.5-10.1) L Phosphorus Level 2.7 MG/DL (2.5-4.9) Magnesium Level 1.7 MG/DL (1.8-2.4) L Objective HEAD AND NECK: No JVD. LUNGS: Decreased breath sounds. CARDIOVASCULAR: Bradycardic S1 and S2 with no gallop. ABDOMEN: Status post G-tube. EXTREMITIES: No pitting edema. GEOFFREY AGUERO Jul 04, 2017 10:24
[2017-07-04 11:15] LABS: APTT 1:1 MIX SALINE 53.1 sec (Not Estab.); APTT 1:1 NORMAL PLASMA 25.1 sec (22.9-30.2)
[2017-07-04 12:00] VITALS: BP 151/75
[2017-07-04 16:00] VITALS: BP 134/58
[2017-07-04] MEDS: D5NS 1,000 ML IV SCH (16:01)
[2017-07-04] MEDS: Vancomycin 750mg/NS 250ml IVPB SCH (16:01)
--- NOTE | 2017-07-04 16:38 | Infectious Diseases Prog Note ---
Assessment/Plan Problems: (1) Septic shock Assessment & Plan: with staphylococcus spp , source? suspect skin wound . will continue vancomycin and stop cefepime empiric coverage pending identification and sensitivity (2) Hypotension (arterial) Assessment & Plan: suspect due to sepsis and anemia , continue blood pressure support and antibiotics (3) Upper gastrointestinal bleed Assessment & Plan: monitor H/H, transfuse as needed , GI is following (4) Severe anemia Assessment & Plan: suspect due to GI blood loss , monitor H/H, transfuse as needed Subjective ROS Limited/Unobtainable: Yes Allergies: Coded Allergies: No Known Allergies (Unverified , 06/30/17) Subjective she was lying in bed, comfortable, nonverbal , dosen't follow commands , no fever or chills, no cough or SOB Objective Vital Signs Last 24 Hour Vital Signs Date Time Temp Pulse Resp B/P (MAP) Pulse Ox O2 Delivery O2 Flow Rate FiO2 07/04/17 12:00 98.4 50 18 151/75 100 Nasal Cannula 2.0 07/04/17 08:00 53 07/04/17 08:00 98.4 51 18 161/74 99 Nasal Cannula 2.0 07/04/17 04:00 98.4 47 20 144/59 96 Nasal Cannula 2.0 07/04/17 04:00 41 07/04/17 00:00 98.1 60 20 142/69 100 Nasal Cannula 2.0 07/04/17 00:00 60 07/03/17 20:00 58 07/03/17 20:00 98.0 58 20 155/77 100 Nasal Cannula 2.0 Height (Feet): 5 Height (Inches): 5.00 Weight (Pounds): 110 General Appearance: WD/WN, no acute distress HEENT: normocephalic, atraumatic, anicteric, mucous membranes moist, PERRL Respiratory/Chest: chest wall non-tender, lungs clear, no respiratory distress , no accessory muscle use, decreased breath sounds Cardiovascular: normal peripheral pulses, normal rate, regular rhythm, no gallop/murmur, no JVD Abdomen: normal bowel sounds, soft, non tender, no organomegaly, non distended , no mass, no scars Extremities: no cyanosis, no clubbing Skin: no rash, no lesions, other - sacral wound Neurologic/Psychiatric: unresponsiveness Laboratory Tests Test 07/04/17 06:40 White Blood Count 6.1 K/UL (4.8-10.8) Red Blood Count 3.07 M/UL (4.20-5.40) L Hemoglobin 9.5 G/DL (12.0-16.0) L Hematocrit 27.8 % (37.0-47.0) L Mean Corpuscular Volume 90 FL (80-99) Mean Corpuscular Hemoglobin 31.0 PG (27.0-31.0) Mean Corpuscular Hemoglobin Concent 34.3 G/DL (32.0-36.0) Red Cell Distribution Width 20.4 % (11.6-14.8) H Platelet Count 207 K/UL (150-450) Mean Platelet Volume 6.8 FL (6.5-10.1) Neutrophils (%) (Auto) 73.8 % (45.0-75.0) Lymphocytes (%) (Auto) 13.0 % (20.0-45.0) L Monocytes (%) (Auto) 11.9 % (1.0-10.0) H Eosinophils (%) (Auto) 0.5 % (0.0-3.0) Basophils (%) (Auto) 0.8 % (0.0-2.0) Sodium Level 140 MMOL/L (136-145) Potassium Level 3.7 MMOL/L (3.5-5.1) Chloride Level 108 MMOL/L (98-107) H Carbon Dioxide Level 23 MMOL/L (21-32) Anion Gap 9 mmol/L (5-15) Blood Urea Nitrogen 7 mg/dL (7-18) Creatinine 0.5 MG/DL (0.55-1.30) L Estimat Glomerular Filtration Rate mL/min (>60) Glucose Level 101 MG/DL (74-106) Calcium Level 8.0 MG/DL (8.5-10.1) L Phosphorus Level 2.7 MG/DL (2.5-4.9) Magnesium Level 1.7 MG/DL (1.8-2.4) L Current Medications Medications (Trade) Dose Ordered Sig/Brianna Route PRN Reason Start Time Stop Time Status Last Admin Dose Admin Dextrose/Sodium Chloride 1,000 ml @ 60 mls/hr [id number] IV 07/02/17 12:45 07/30/17 12:44 07/04/17 16:01 Iron Sucrose 100 mg/Sodium Chloride 60 ml @ 240 mls/hr BEDTIME IV 07/02/17 21:00 07/04/17 21:14 07/03/17 20:32 Pantoprazole (Protonix) 40 mg EVERY 12 HOURS IVP 07/02/17 21:00 07/31/17 09:59 07/04/17 09:07 Vancomycin HCl (Vanco rx to dose) 1 ea DAILY PRN MISC Per rx protocol 07/03/17 14:15 08/02/17 14:14 Vancomycin/Sodium Chloride 250 ml @ 166.667 mls/hr Q24H IVPB 07/03/17 16:00 07/08/17 15:59 07/04/17 16:01 Godwin Weiss M.D. Jul 04, 2017 16:38
[2017-07-04] MEDS ORDERED: D5NS 1000ml IV ONE (17:08)
[2017-07-04 20:00] VITALS: BP 154/73
[2017-07-04] MEDS: Iron Sucrose 100 MG in NS 55 ML IV SCH (21:53)
--- NOTE | 2017-07-04 23:15 | Progress Note ---
DATE: 07/04/2017 SUBJECTIVE: This is an elderly 82-year-old female, currently in bed, comfortable. OBJECTIVE: VITAL SIGNS: Blood pressure is 130/70, pulse 74, and respirations 18. SKIN: Good skin turgor. HEENT: . CHEST: Bilaterally clear. CARDIOVASCULAR: Regular rhythm. No gallop. No murmur. ABDOMEN: Soft. EXTREMITIES: CCE. NEUROLOGICAL: The patient is having no focal deficit. ASSESSMENT: 1. Anemia. 2. Deep vein thrombosis. 3. Gastrointestinal bleed. PLAN: We will currently continue supportive treatment. probably the patient will continue the Lovenox. Hilario Cooper M.D. DR: IRMA JOB#: [id number] CC:
--- NOTE | 2017-07-04 23:15 | Progress Note ---
DATE: 07/03/2017 This is a late entry for the patient for 07/03/2017 SUBJECTIVE: This is an elderly female, who is nonverbal, but bedbound. She was looking comfortable. OBJECTIVE: VITAL SIGNS: Blood pressure was doing fine. HEENT: NAD. CHEST: Bilateral few crackles. CARDIOVASCULAR: Regular rhythm. No gallop. No murmur. ABDOMEN: Soft. EXTREMITIES: . ASSESSMENT AND PLAN: Deep venous thrombosis, stable. Continue current treatment. Hilario Cooper M.D. DR: PERNELL JOB#: [id number] CC:
--- NOTE | 2017-07-04 23:27 | General Progress Note ---
Assessment/Plan Assessment/Plan #. Anemia due to upper gastrointestinal bleed. --> Anemia workup reviewed. --> Hemoglobin goal is above 7. --> EGD cancelled, no consent, so she was scheduled for Saturday. --> Hemoglobin >9 above goal since blood transfusion #. Anemia of iron deficiency. --> Monitor closely. --> Anemia workup reviewed. #. Failure to thrive, status post percutaneous endoscopic gastrostomy tube. --> monitor #. Dehydration. #. Upper gastrointestinal bleed. --> S/P PRBC --> Monitor Subjective Constitutional: Denies: no symptoms, chills, diaphoresis, fever, malaise, weakness, other HEENT: Denies: no symptoms, eye pain, blurred vision, tearing, double vision, ear pain, ear discharge, nose pain, nose congestion, throat pain, throat swelling, mouth pain, mouth swelling, other Cardiovascular: Denies: no symptoms, chest pain, edema, irregular heart rate, lightheadedness, palpitations, syncope, other Respiratory: Denies: no symptoms, cough, orthopnea, shortness of breath, SOB with excertion, SOB at rest, sputum, stridor, wheezing, other Gastrointestinal/Abdominal: Denies: no symptoms, abdomen distended, abdominal pain, black stools, tarry stools, blood in stool, constipated, diarrhea, difficulty swallowing, nausea, poor appetite, poor fluid intake, rectal bleeding , vomiting, other Allergies: Coded Allergies: No Known Allergies (Unverified , 06/30/17) Subjective Laying in bed. Nonverbal. Not following commands. Objective Last 24 Hour Vital Signs Date Time Temp Pulse Resp B/P (MAP) Pulse Ox O2 Delivery O2 Flow Rate FiO2 07/04/17 20:00 99.0 46 22 154/73 94 Nasal Cannula 2.0 07/04/17 16:00 98.1 46 20 134/58 98 Nasal Cannula 2.0 07/04/17 16:00 42 07/04/17 12:00 98.4 50 18 151/75 100 Nasal Cannula 2.0 07/04/17 08:00 53 07/04/17 08:00 98.4 51 18 161/74 99 Nasal Cannula 2.0 07/04/17 04:00 98.4 47 20 144/59 96 Nasal Cannula 2.0 07/04/17 04:00 41 07/04/17 00:00 98.1 60 20 142/69 100 Nasal Cannula 2.0 07/04/17 00:00 60 Intake and Output 07/03/17 07/04/17 19:00 07:00 Intake Total 10 ml 1490 ml Balance 10 ml 1490 ml IV Total 1440 ml Tube Feeding 10 ml 50 ml # Voids 3 3 Laboratory Tests 07/04/17 06:40: White Blood Count 6.1, Red Blood Count 3.07L, Hemoglobin 9.5L, Hematocrit 27.8L , Mean Corpuscular Volume 90, Mean Corpuscular Hemoglobin 31.0, Mean Corpuscular Hemoglobin Concent 34.3, Red Cell Distribution Width 20.4H, Platelet Count 207, Mean Platelet Volume 6.8, Neutrophils (%) (Auto) 73.8, Lymphocytes (%) (Auto) 13.0L, Monocytes (%) (Auto) 11.9H, Eosinophils (%) (Auto ) 0.5, Basophils (%) (Auto) 0.8, Sodium Level 140, Potassium Level 3.7, Chloride Level 108H, Carbon Dioxide Level 23, Anion Gap 9, Blood Urea Nitrogen 7 , Creatinine 0.5L, Estimat Glomerular Filtration Rate , Glucose Level 101, Calcium Level 8.0L, Phosphorus Level 2.7, Magnesium Level 1.7L Height (Feet): 5 Height (Inches): 5.00 Weight (Pounds): 110 Joaquim Dwyer Jul 04, 2017 23:26
[2017-07-05] VITALS (7 sets, daily range): BP systolic 127–163; BP diastolic 59–86
[2017-07-05] MEDS: Pantoprazole Inj IVP SCH ×2 (08:05→21:58)
[2017-07-05 09:30] LABS: BASOPHILS % (AUTO) 0.8 % (0.0-2.0); HEMATOCRIT 27.4 % (37.0-47.0); HEMOGLOBIN 9.1 G/DL (12.0-16.0); MEAN CORPUSCULAR VOLUME 92 FL (80-99); MONOCYTES % (AUTO) 11.7 % (1.0-10.0); NEUTROPHILS % (AUTO) 75.6 % (45.0-75.0); PLATELET COUNT 197 K/UL (150-450); RED BLOOD COUNT 2.99 M/UL (4.20-5.40); WHITE BLOOD COUNT 4.6 K/UL (4.8-10.8)
[2017-07-05 09:39] LABS: ANION GAP 7 mmol/L (5-15); BLOOD UREA NITROGEN 13 mg/dL (7-18); CALCIUM 8.1 MG/DL (8.5-10.1); CARBON DIOXIDE 24 MMOL/L (21-32); CHLORIDE 106 MMOL/L (98-107); CREATININE 0.4 MG/DL (0.55-1.30); POTASSIUM 3.3 MMOL/L (3.5-5.1); SODIUM 137 MMOL/L (136-145)
--- NOTE | 2017-07-05 11:08 | Cardiac Electrophysiology PN ---
Assessment/Plan Assessment/Plan 1. Atrial fibrillation based on EKG. There is no prior history per her records. Remained in Sinus 50-80. 2. Troponin leak. Levels are flat likely due to demand ischemia in view of Hb as low as 3. Echo Nl EF Off aspirin for Hb 3. Off beta nola for bradycardia 3. Recurrent Bradycardia based on records from [facility] and here also. Asymptomatic. HR now 50s. Keep off any PANDYA or AVN nola. TFT showed no hypothyroidism 4. Dysphagia, status post PEG placement by Dr. Amado at [facility] 06/23/17. GT feeding resumed 5. Profound anemia with hemoglobin around 3. S/P 4 units PRBC DW RN Subjective Subjective Bradycardic better now in 50s. HR as high as 80s. EGD cancelled for bradycardia. Got 4 units of PRBC GT feeding resumed. Nonverbal. RN at bedside. Objective Last 24 Hour Vital Signs Date Time Temp Pulse Resp B/P (MAP) Pulse Ox O2 Delivery O2 Flow Rate FiO2 07/05/17 08:00 98.0 55 20 145/66 96 Nasal Cannula 2.0 07/05/17 08:00 98.0 55 20 145/66 96 07/05/17 08:00 52 07/05/17 04:00 52 07/05/17 04:00 98.2 24 150/72 94 Nasal Cannula 2.0 07/05/17 00:00 60 07/05/17 00:00 98.2 24 127/59 98 Nasal Cannula 2.0 07/04/17 20:00 99.0 46 22 154/73 94 Nasal Cannula 2.0 07/04/17 20:00 45 07/04/17 16:00 98.1 46 20 134/58 98 Nasal Cannula 2.0 07/04/17 16:00 42 07/04/17 12:00 98.4 50 18 151/75 100 Nasal Cannula 2.0 Intake and Output 07/04/17 07/05/17 19:00 07:00 Intake Total 1350.000 ml 1235 ml Balance 1350.000 ml 1235 ml Intake Free Water 100 ml 120 ml IV Total 1100.000 ml 705 ml Tube Feeding 150 ml 410 ml # Voids 3 # Bowel Movements 1 Laboratory Tests Test 07/05/17 08:05 White Blood Count 4.6 K/UL (4.8-10.8) L Red Blood Count 2.99 M/UL (4.20-5.40) L Hemoglobin 9.1 G/DL (12.0-16.0) L Hematocrit 27.4 % (37.0-47.0) L Mean Corpuscular Volume 92 FL (80-99) Mean Corpuscular Hemoglobin 30.4 PG (27.0-31.0) Mean Corpuscular Hemoglobin Concent 33.2 G/DL (32.0-36.0) Red Cell Distribution Width 20.0 % (11.6-14.8) H Platelet Count 197 K/UL (150-450) Mean Platelet Volume 7.0 FL (6.5-10.1) Neutrophils (%) (Auto) 75.6 % (45.0-75.0) H Lymphocytes (%) (Auto) 11.0 % (20.0-45.0) L Monocytes (%) (Auto) 11.7 % (1.0-10.0) H Eosinophils (%) (Auto) 1.0 % (0.0-3.0) Basophils (%) (Auto) 0.8 % (0.0-2.0) Sodium Level 137 MMOL/L (136-145) Potassium Level 3.3 MMOL/L (3.5-5.1) L Chloride Level 106 MMOL/L (98-107) Carbon Dioxide Level 24 MMOL/L (21-32) Anion Gap 7 mmol/L (5-15) Blood Urea Nitrogen 13 mg/dL (7-18) Creatinine 0.4 MG/DL (0.55-1.30) L Estimat Glomerular Filtration Rate mL/min (>60) Glucose Level 112 MG/DL (74-106) H Calcium Level 8.1 MG/DL (8.5-10.1) L Magnesium Level 1.7 MG/DL (1.8-2.4) L Objective HEAD AND NECK: No JVD. LUNGS: Decreased breath sounds. CARDIOVASCULAR: Bradycardic S1 and S2 with no gallop. ABDOMEN: Status post G-tube. EXTREMITIES: No pitting edema. GEOFFREY AGUERO Jul 05, 2017 11:08
--- NOTE | 2017-07-05 12:25 | Nephrology Progress Note ---
Assessment/Plan Problem List: (1) Bradycardia (2) Septic shock (3) Severe malnutrition (4) Encephalopathy (5) Acute blood loss anemia (6) Hypovolemic shock (7) Severe anemia (8) GI bleed (9) Dysphagia (10) Dehydration (11) Upper gastrointestinal bleed Plan f/u recs per GI. abx per ID. d/c planning. Subjective Subjective late entry for 07/04 - No acute events. Comfortable. No fever. Objective Objective Last 24 Hour Vital Signs Date Time Temp Pulse Resp B/P (MAP) Pulse Ox O2 Delivery O2 Flow Rate FiO2 07/05/17 08:00 98.0 55 20 145/66 96 Nasal Cannula 2.0 07/05/17 08:00 98.0 55 20 145/66 96 07/05/17 08:00 52 07/05/17 04:00 52 07/05/17 04:00 98.2 24 150/72 94 Nasal Cannula 2.0 07/05/17 00:00 60 07/05/17 00:00 98.2 24 127/59 98 Nasal Cannula 2.0 07/04/17 20:00 99.0 46 22 154/73 94 Nasal Cannula 2.0 07/04/17 20:00 45 07/04/17 16:00 98.1 46 20 134/58 98 Nasal Cannula 2.0 07/04/17 16:00 42 Intake and Output 07/04/17 07/05/17 19:00 07:00 Intake Total 1350.000 ml 1235 ml Balance 1350.000 ml 1235 ml Intake Free Water 100 ml 120 ml IV Total 1100.000 ml 705 ml Tube Feeding 150 ml 410 ml # Voids 3 # Bowel Movements 1 Laboratory Tests 07/05/17 08:05: White Blood Count 4.6L, Red Blood Count 2.99L, Hemoglobin 9.1L, Hematocrit 27.4L , Mean Corpuscular Volume 92, Mean Corpuscular Hemoglobin 30.4, Mean Corpuscular Hemoglobin Concent 33.2, Red Cell Distribution Width 20.0H, Platelet Count 197, Mean Platelet Volume 7.0, Neutrophils (%) (Auto) 75.6H, Lymphocytes (%) (Auto) 11.0L, Monocytes (%) (Auto) 11.7H, Eosinophils (%) (Auto ) 1.0, Basophils (%) (Auto) 0.8, Sodium Level 137, Potassium Level 3.3L, Chloride Level 106, Carbon Dioxide Level 24, Anion Gap 7, Blood Urea Nitrogen 13 , Creatinine 0.4L, Estimat Glomerular Filtration Rate , Glucose Level 112H, Calcium Level 8.1L, Magnesium Level 1.7L Height (Feet): 5 Height (Inches): 5.00 Weight (Pounds): 110 General Appearance: no apparent distress Cardiovascular: normal rate, regular rhythm Respiratory/Chest: lungs clear Abdomen: non tender, soft JAY EVANGELISTA Jul 05, 2017 12:25
--- NOTE | 2017-07-05 12:26 | GI Progress Note ---
Assessment/Plan Problems: (1) Hypovolemic shock ICD Codes: R57.1 - Hypovolemic shock SNOMED: 61434865 (2) Encephalopathy ICD Codes: G93.40 - Encephalopathy, unspecified SNOMED: 22233051 (3) Severe malnutrition ICD Codes: E43 - Unspecified severe protein-calorie malnutrition SNOMED: 55373922 (4) Acute blood loss anemia ICD Codes: D62 - Acute posthemorrhagic anemia SNOMED: 063311127 (5) Dehydration ICD Codes: E86.0 - Dehydration SNOMED: 70874439 (6) Dysphagia ICD Codes: R13.10 - Dysphagia, unspecified SNOMED: 20975434, 962696169 (7) GI bleed ICD Codes: K92.2 - Gastrointestinal hemorrhage, unspecified SNOMED: 76952600 (8) Severe anemia ICD Codes: D64.9 - Anemia, unspecified SNOMED: 390852985 (9) Upper gastrointestinal bleed ICD Codes: K92.2 - Gastrointestinal hemorrhage, unspecified SNOMED: 74510147 Status: stable Status Narrative Discussed with Dr. Arana. Assessment/Plan EGD deferred due to bradycardia, will only scope if emergent. - stable H&H past 3 days - OB stool r/o GI bleed resume GTFs per RD prn transfusions ppi bid venofer fu labs Subjective Subjective limited Objective Last 24 Hour Vital Signs Date Time Temp Pulse Resp B/P (MAP) Pulse Ox O2 Delivery O2 Flow Rate FiO2 07/05/17 08:00 98.0 55 20 145/66 96 Nasal Cannula 2.0 07/05/17 08:00 98.0 55 20 145/66 96 07/05/17 08:00 52 07/05/17 04:00 52 07/05/17 04:00 98.2 24 150/72 94 Nasal Cannula 2.0 07/05/17 00:00 60 07/05/17 00:00 98.2 24 127/59 98 Nasal Cannula 2.0 07/04/17 20:00 99.0 46 22 154/73 94 Nasal Cannula 2.0 07/04/17 20:00 45 07/04/17 16:00 98.1 46 20 134/58 98 Nasal Cannula 2.0 07/04/17 16:00 42 Intake and Output 07/04/17 07/05/17 19:00 07:00 Intake Total 1350.000 ml 1235 ml Balance 1350.000 ml 1235 ml Intake Free Water 100 ml 120 ml IV Total 1100.000 ml 705 ml Tube Feeding 150 ml 410 ml # Voids 3 # Bowel Movements 1 Laboratory Tests Test 07/05/17 08:05 White Blood Count 4.6 K/UL (4.8-10.8) L Red Blood Count 2.99 M/UL (4.20-5.40) L Hemoglobin 9.1 G/DL (12.0-16.0) L Hematocrit 27.4 % (37.0-47.0) L Mean Corpuscular Volume 92 FL (80-99) Mean Corpuscular Hemoglobin 30.4 PG (27.0-31.0) Mean Corpuscular Hemoglobin Concent 33.2 G/DL (32.0-36.0) Red Cell Distribution Width 20.0 % (11.6-14.8) H Platelet Count 197 K/UL (150-450) Mean Platelet Volume 7.0 FL (6.5-10.1) Neutrophils (%) (Auto) 75.6 % (45.0-75.0) H Lymphocytes (%) (Auto) 11.0 % (20.0-45.0) L Monocytes (%) (Auto) 11.7 % (1.0-10.0) H Eosinophils (%) (Auto) 1.0 % (0.0-3.0) Basophils (%) (Auto) 0.8 % (0.0-2.0) Sodium Level 137 MMOL/L (136-145) Potassium Level 3.3 MMOL/L (3.5-5.1) L Chloride Level 106 MMOL/L (98-107) Carbon Dioxide Level 24 MMOL/L (21-32) Anion Gap 7 mmol/L (5-15) Blood Urea Nitrogen 13 mg/dL (7-18) Creatinine 0.4 MG/DL (0.55-1.30) L Estimat Glomerular Filtration Rate mL/min (>60) Glucose Level 112 MG/DL (74-106) H Calcium Level 8.1 MG/DL (8.5-10.1) L Magnesium Level 1.7 MG/DL (1.8-2.4) L Height (Feet): 5 Height (Inches): 5.00 Weight (Pounds): 110 General Appearance: no apparent distress, thin Cardiovascular: normal rate Respiratory/Chest: other - NC Objective no active s/sx of bleeding Amira Rios N.P. Jul 05, 2017 12:26
--- NOTE | 2017-07-05 14:01 | Infectious Diseases Prog Note ---
Assessment/Plan Problems: (1) Septic shock Assessment & Plan: with coag negative staph , source? suspect skin wound . will continue vancomycin for four weeks , will repeat blood culture to confirm clearance today. EOT 08/02/17 (2) Hypotension (arterial) Assessment & Plan: improving , suspect due to sepsis and anemia , continue blood pressure support and antibiotics (3) Upper gastrointestinal bleed Assessment & Plan: monitor H/H, transfuse as needed , GI is following (4) Severe anemia Assessment & Plan: suspect due to GI blood loss , monitor H/H, transfuse as needed Subjective ROS Limited/Unobtainable: Yes Allergies: Coded Allergies: No Known Allergies (Unverified , 06/30/17) Subjective she was the same, lying in bed, comfortable, nonverbal , dosen't follow commands , no fever or chills, no cough or SOB Objective Vital Signs Last 24 Hour Vital Signs Date Time Temp Pulse Resp B/P (MAP) Pulse Ox O2 Delivery O2 Flow Rate FiO2 07/05/17 12:00 98.0 69 20 142/86 95 07/05/17 08:00 98.0 55 20 145/66 96 Nasal Cannula 2.0 07/05/17 08:00 98.0 55 20 145/66 96 07/05/17 08:00 52 07/05/17 04:00 52 07/05/17 04:00 98.2 24 150/72 94 Nasal Cannula 2.0 07/05/17 00:00 60 07/05/17 00:00 98.2 24 127/59 98 Nasal Cannula 2.0 07/04/17 20:00 99.0 46 22 154/73 94 Nasal Cannula 2.0 07/04/17 20:00 45 07/04/17 16:00 98.1 46 20 134/58 98 Nasal Cannula 2.0 07/04/17 16:00 42 Height (Feet): 5 Height (Inches): 5.00 Weight (Pounds): 110 General Appearance: WD/WN, no acute distress, cachetic HEENT: normocephalic, atraumatic, anicteric, mucous membranes moist, PERRL, supple, no JVD Respiratory/Chest: chest wall non-tender, lungs clear, normal breath sounds, no respiratory distress, no accessory muscle use Cardiovascular: normal peripheral pulses, normal rate, regular rhythm, no JVD Abdomen: normal bowel sounds, soft, non tender, no organomegaly, non distended , no mass, no scars Extremities: no cyanosis, no clubbing Skin: no rash, no lesions, ulcers Neurologic/Psychiatric: unresponsiveness Lymphatic: no neck adenopathy, no groin adenopathy Laboratory Tests Test 07/05/17 08:05 White Blood Count 4.6 K/UL (4.8-10.8) L Red Blood Count 2.99 M/UL (4.20-5.40) L Hemoglobin 9.1 G/DL (12.0-16.0) L Hematocrit 27.4 % (37.0-47.0) L Mean Corpuscular Volume 92 FL (80-99) Mean Corpuscular Hemoglobin 30.4 PG (27.0-31.0) Mean Corpuscular Hemoglobin Concent 33.2 G/DL (32.0-36.0) Red Cell Distribution Width 20.0 % (11.6-14.8) H Platelet Count 197 K/UL (150-450) Mean Platelet Volume 7.0 FL (6.5-10.1) Neutrophils (%) (Auto) 75.6 % (45.0-75.0) H Lymphocytes (%) (Auto) 11.0 % (20.0-45.0) L Monocytes (%) (Auto) 11.7 % (1.0-10.0) H Eosinophils (%) (Auto) 1.0 % (0.0-3.0) Basophils (%) (Auto) 0.8 % (0.0-2.0) Sodium Level 137 MMOL/L (136-145) Potassium Level 3.3 MMOL/L (3.5-5.1) L Chloride Level 106 MMOL/L (98-107) Carbon Dioxide Level 24 MMOL/L (21-32) Anion Gap 7 mmol/L (5-15) Blood Urea Nitrogen 13 mg/dL (7-18) Creatinine 0.4 MG/DL (0.55-1.30) L Estimat Glomerular Filtration Rate mL/min (>60) Glucose Level 112 MG/DL (74-106) H Calcium Level 8.1 MG/DL (8.5-10.1) L Magnesium Level 1.7 MG/DL (1.8-2.4) L Current Medications Medications (Trade) Dose Ordered Sig/Brianna Route PRN Reason Start Time Stop Time Status Last Admin Dose Admin Dextrose/Sodium Chloride 1,000 ml @ 60 mls/hr [id number] IV 07/02/17 12:45 07/30/17 12:44 07/04/17 16:01 Pantoprazole (Protonix) 40 mg EVERY 12 HOURS IVP 07/02/17 21:00 07/31/17 09:59 07/05/17 08:05 Vancomycin HCl (Vanco rx to dose) 1 ea DAILY PRN MISC Per rx protocol 07/03/17 14:15 08/02/17 14:14 Vancomycin/Sodium Chloride 250 ml @ 166.667 mls/hr Q24H IVPB 07/03/17 16:00 07/08/17 15:59 07/04/17 16:01 Godwin Weiss M.D. Jul 05, 2017 14:01
[2017-07-05] MEDS ORDERED: Lidocaine 1% Plain 30 ml INJ PRN (14:45)
[2017-07-05] MEDS ORDERED: Heparin 2000 units/Ns 1000ml IV PRN (14:45)
--- NOTE | 2017-07-05 16:25 | Diagnostic Imaging Report ---
Indications: Needs long-term IV access Technique: Ultrasound confirms patent compressible left brachial vein. Total sterile technique, including sterile probe cover and sterile gel, hat, mask,, sterile gown, large sterile drape, and preparation with 2% chlorhexidine utilized. Local anesthesia with 1% lidocaine. Under real-time ultrasound guidance, puncture brachial vein using 21-gauge needle, documented and archived, passage 0.018 guidewire under direct fluoroscopy, which was used to determine appropriate catheter length, exchange for 5 Swazi peel-away sheath. 5 Swazi Bard dual-lumen power PICC cut to 36 cm. It was inserted through the peel-away sheath. Peel-away sheath and guidewire removed. Catheter fixed to the skin. Both catheter ports aspirated and flushed. Patient tolerated procedure well, without immediate complication. Digital radiograph documents satisfactory catheter tip position, at the cavoatrial junction. Total fluoroscopy time 0.2 minutes. Total dose area product 6.3 dGycm2 Impression: Successful placement of PICC under sonographic and fluoroscopic guidance, as described above.
--- NOTE | 2017-07-05 16:28 | Nephrology Progress Note ---
Assessment/Plan Problem List: (1) Dysphagia (2) PEG (percutaneous endoscopic gastrostomy) status (3) Severe anemia (4) Dehydration (5) GI bleed (6) Hypotension (arterial) (7) Upper gastrointestinal bleed (8) Bradycardia (9) Acute blood loss anemia (10) Severe malnutrition (11) Troponin level elevated Plan H&H improved post transfusion, monitor Replete K and Magnesium Monitor lytes and correct prn Continue daily PPI GI, ID, cardio, and Hematology following Abx per ID AM labs DC plan Subjective ROS Limited/Unobtainable: Yes Subjective In bed, in no apparent distress, G-tube feeding ongoing Objective Objective Last 24 Hour Vital Signs Date Time Temp Pulse Resp B/P (MAP) Pulse Ox O2 Delivery O2 Flow Rate FiO2 07/05/17 12:00 98.0 69 20 142/86 95 07/05/17 08:00 98.0 55 20 145/66 96 Nasal Cannula 2.0 07/05/17 08:00 98.0 55 20 145/66 96 07/05/17 08:00 52 07/05/17 04:00 52 07/05/17 04:00 98.2 24 150/72 94 Nasal Cannula 2.0 07/05/17 00:00 60 07/05/17 00:00 98.2 24 127/59 98 Nasal Cannula 2.0 07/04/17 20:00 99.0 46 22 154/73 94 Nasal Cannula 2.0 07/04/17 20:00 45 Intake and Output 07/04/17 07/05/17 19:00 07:00 Intake Total 1350.000 ml 1235 ml Balance 1350.000 ml 1235 ml Intake Free Water 100 ml 120 ml IV Total 1100.000 ml 705 ml Tube Feeding 150 ml 410 ml # Voids 3 # Bowel Movements 1 Laboratory Tests 07/05/17 08:05: White Blood Count 4.6L, Red Blood Count 2.99L, Hemoglobin 9.1L, Hematocrit 27.4L , Mean Corpuscular Volume 92, Mean Corpuscular Hemoglobin 30.4, Mean Corpuscular Hemoglobin Concent 33.2, Red Cell Distribution Width 20.0H, Platelet Count 197, Mean Platelet Volume 7.0, Neutrophils (%) (Auto) 75.6H, Lymphocytes (%) (Auto) 11.0L, Monocytes (%) (Auto) 11.7H, Eosinophils (%) (Auto ) 1.0, Basophils (%) (Auto) 0.8, Sodium Level 137, Potassium Level 3.3L, Chloride Level 106, Carbon Dioxide Level 24, Anion Gap 7, Blood Urea Nitrogen 13 , Creatinine 0.4L, Estimat Glomerular Filtration Rate , Glucose Level 112H, Calcium Level 8.1L, Magnesium Level 1.7L Height (Feet): 5 Height (Inches): 5.00 Weight (Pounds): 110 General Appearance: no apparent distress EENT: normal ENT inspection Neck: non-tender, supple Cardiovascular: normal rate Respiratory/Chest: no respiratory distress Abdomen: soft, other - PEG Neurologic: disoriented Leyla Jordan N.P. Jul 05, 2017 16:28
[2017-07-05] MEDS: Vancomycin 750mg/NS 250ml IVPB SCH (17:40)
[2017-07-05] MEDS: D5NS 1,000 ML IV SCH (17:41)
--- NOTE | 2017-07-05 23:42 | General Progress Note ---
Assessment/Plan Assessment/Plan #. Anemia due to upper gastrointestinal bleed. --> Anemia workup reviewed. --> Hemoglobin goal is above 7. --> EGD cancelled, no consent, so she was scheduled for Saturday. --> Hemoglobin >9 above goal since blood transfusion #. Anemia of iron deficiency. --> Monitor closely. --> Anemia workup reviewed. --> Blood transfusion not required unless symptomatic or hgb <7 #. Failure to thrive, status post percutaneous endoscopic gastrostomy tube. --> monitor #. Dehydration. #. Upper gastrointestinal bleed. --> S/P PRBC --> Monitor closely. Subjective Date patient seen: Jul 05, 2017 Constitutional: Denies: no symptoms, chills, diaphoresis, fever, malaise, weakness, other HEENT: Denies: no symptoms, eye pain, blurred vision, tearing, double vision, ear pain, ear discharge, nose pain, nose congestion, throat pain, throat swelling, mouth pain, mouth swelling, other Cardiovascular: Denies: no symptoms, chest pain, edema, irregular heart rate, lightheadedness, palpitations, syncope, other Respiratory: Denies: no symptoms, cough, orthopnea, shortness of breath, SOB with excertion, SOB at rest, sputum, stridor, wheezing, other Gastrointestinal/Abdominal: Denies: no symptoms, abdomen distended, abdominal pain, black stools, tarry stools, blood in stool, constipated, diarrhea, difficulty swallowing, nausea, poor appetite, poor fluid intake, rectal bleeding , vomiting, other Genitourinary: Denies: no symptoms, burning, discharge, frequency, flank pain, hematuria, incontinence, pain, urgency, other Hematologic/Lymphatic: Reports: anemia Allergies: Coded Allergies: No Known Allergies (Unverified , 06/30/17) Subjective Nonverbal. Ongoing tube feeds. Leukopenia. Objective Last 24 Hour Vital Signs Date Time Temp Pulse Resp B/P (MAP) Pulse Ox O2 Delivery O2 Flow Rate FiO2 07/05/17 20:00 72 07/05/17 20:00 99.1 66 18 140/66 90 Nasal Cannula 2.0 07/05/17 16:00 97.0 71 20 163/81 95 07/05/17 16:00 58 07/05/17 12:00 98.0 69 20 142/86 95 07/05/17 12:00 98.0 69 20 142/86 95 Nasal Cannula 2.0 07/05/17 12:00 72 07/05/17 08:00 98.0 55 20 145/66 96 Nasal Cannula 2.0 07/05/17 08:00 98.0 55 20 145/66 96 07/05/17 08:00 52 07/05/17 04:00 52 07/05/17 04:00 98.2 24 150/72 94 Nasal Cannula 2.0 07/05/17 00:00 60 07/05/17 00:00 98.2 24 127/59 98 Nasal Cannula 2.0 Intake and Output 07/04/17 07/05/17 19:00 07:00 Intake Total 1350.000 ml 1295 ml Balance 1350.000 ml 1295 ml Intake Free Water 100 ml 120 ml IV Total 1100.000 ml 765 ml Tube Feeding 150 ml 410 ml # Voids 3 # Bowel Movements 1 Laboratory Tests 07/05/17 08:05: White Blood Count 4.6L, Red Blood Count 2.99L, Hemoglobin 9.1L, Hematocrit 27.4L , Mean Corpuscular Volume 92, Mean Corpuscular Hemoglobin 30.4, Mean Corpuscular Hemoglobin Concent 33.2, Red Cell Distribution Width 20.0H, Platelet Count 197, Mean Platelet Volume 7.0, Neutrophils (%) (Auto) 75.6H, Lymphocytes (%) (Auto) 11.0L, Monocytes (%) (Auto) 11.7H, Eosinophils (%) (Auto ) 1.0, Basophils (%) (Auto) 0.8, Sodium Level 137, Potassium Level 3.3L, Chloride Level 106, Carbon Dioxide Level 24, Anion Gap 7, Blood Urea Nitrogen 13 , Creatinine 0.4L, Estimat Glomerular Filtration Rate , Glucose Level 112H, Calcium Level 8.1L, Magnesium Level 1.7L Height (Feet): 5 Height (Inches): 5.00 Weight (Pounds): 110 Joaquim Dwyer Jul 05, 2017 23:42
[2017-07-06] VITALS: BP 129/63
[2017-07-06] MEDS: D5NS 1,000 ML IV SCH ×2 (00:51→17:13)
[2017-07-06 04:00] VITALS: BP 119/66
[2017-07-06 07:32] LABS: HEMATOCRIT 22.5 % (37.0-47.0); HEMOGLOBIN 7.5 G/DL (12.0-16.0); MEAN CORPUSCULAR VOLUME 90 FL (80-99); PLATELET COUNT 177 K/UL (150-450); RED CELL DISTRIBUTION WIDTH 20.2 % (11.6-14.8); WHITE BLOOD COUNT 5.2 K/UL (4.8-10.8)
[2017-07-06 07:49] LABS: ANION GAP 8 mmol/L (5-15); BLOOD UREA NITROGEN 7 mg/dL (7-18); CARBON DIOXIDE 18 MMOL/L (21-32); CHLORIDE 118 MMOL/L (98-107); CREATININE 0.3 MG/DL (0.55-1.30); SODIUM 144 MMOL/L (136-145)
[2017-07-06 07:51] LABS: POTASSIUM 2.1 MMOL/L (3.5-5.1)
[2017-07-06 08:00] VITALS: BP 120/56
[2017-07-06] MEDS: Pantoprazole Inj IVP SCH ×2 (08:54→21:26)
[2017-07-06] MEDS ORDERED: Tums 500mg GT SCH (09:00)
[2017-07-06 12:00] VITALS: BP 157/87
--- NOTE | 2017-07-06 14:29 | Infectious Diseases Prog Note ---
Assessment/Plan Problems: (1) Septic shock Assessment & Plan: with coag negative staph , source? suspect skin wound . will continue vancomycin for four weeks , will repeat blood culture to confirm clearance today. EOT 08/02/17 (2) Hypotension (arterial) Assessment & Plan: improving , suspect due to sepsis and anemia , continue blood pressure support and antibiotics (3) Upper gastrointestinal bleed Assessment & Plan: monitor H/H, transfuse as needed , GI is following (4) Severe anemia Assessment & Plan: suspect due to GI blood loss , monitor H/H, transfuse as needed (5) Fever Assessment & Plan: rule out pneumonia , will order CXR, and blood culture x2 , will add cefepime empiric coverage Subjective ROS Limited/Unobtainable: Yes Allergies: Coded Allergies: No Known Allergies (Unverified , 06/30/17) Subjective she was the same, lying in bed, comfortable, nonverbal , dosen't follow commands , had fever of 102.2 no chills, no cough or SOB , required high flow oxygen Objective Vital Signs Last 24 Hour Vital Signs Date Time Temp Pulse Resp B/P (MAP) Pulse Ox O2 Delivery O2 Flow Rate FiO2 07/06/17 12:00 97.5 68 22 157/87 96 Nasal Cannula 4.0 07/06/17 12:00 74 07/06/17 09:56 Nasal Cannula 2.0 28 07/06/17 09:56 95 Nasal Cannula 2.0 28 07/06/17 08:00 99.1 65 20 120/56 92 Nasal Cannula 2.0 07/06/17 08:00 64 07/06/17 04:00 97.0 59 18 119/66 95 Nasal Cannula 2.0 07/06/17 04:00 46 07/06/17 00:00 49 07/06/17 00:00 98.0 18 129/63 96 Nasal Cannula 2.0 07/05/17 20:00 72 07/05/17 20:00 99.1 66 18 140/66 90 Nasal Cannula 2.0 07/05/17 16:00 97.0 71 20 163/81 95 07/05/17 16:00 58 Height (Feet): 5 Height (Inches): 5.00 Weight (Pounds): 110 General Appearance: WD/WN, no acute distress, cachetic HEENT: normocephalic, atraumatic, anicteric, mucous membranes moist, PERRL Respiratory/Chest: chest wall non-tender, lungs clear, normal breath sounds, no respiratory distress, no accessory muscle use, decreased breath sounds Cardiovascular: normal peripheral pulses, normal rate, regular rhythm, no gallop/murmur, no JVD Abdomen: normal bowel sounds, soft, non tender, no organomegaly, non distended , no scars Extremities: no cyanosis, no clubbing Skin: no rash, no lesions, ulcers Neurologic/Psychiatric: alert, unresponsiveness Laboratory Tests Test 07/06/17 06:00 White Blood Count 5.2 K/UL (4.8-10.8) Red Blood Count 2.50 M/UL (4.20-5.40) L Hemoglobin 7.5 G/DL (12.0-16.0) L Hematocrit 22.5 % (37.0-47.0) L Mean Corpuscular Volume 90 FL (80-99) Mean Corpuscular Hemoglobin 29.9 PG (27.0-31.0) Mean Corpuscular Hemoglobin Concent 33.1 G/DL (32.0-36.0) Red Cell Distribution Width 20.2 % (11.6-14.8) H Platelet Count 177 K/UL (150-450) Mean Platelet Volume 6.6 FL (6.5-10.1) Neutrophils (%) (Auto) % (45.0-75.0) Lymphocytes (%) (Auto) % (20.0-45.0) Monocytes (%) (Auto) % (1.0-10.0) Eosinophils (%) (Auto) % (0.0-3.0) Basophils (%) (Auto) % (0.0-2.0) Differential Total Cells Counted 100 Neutrophils % (Manual) 85 % (45-75) H Lymphocytes % (Manual) 8 % (20-45) L Monocytes % (Manual) 7 % (1-10) Eosinophils % (Manual) 0 % (0-3) Basophils % (Manual) 0 % (0-2) Band Neutrophils 0 % (0-8) Platelet Estimate Adequate Platelet Morphology Normal Hypochromasia 3+ Anisocytosis 2+ Sodium Level 144 MMOL/L (136-145) Potassium Level 2.1 MMOL/L (3.5-5.1) *L Chloride Level 118 MMOL/L (98-107) H Carbon Dioxide Level 18 MMOL/L (21-32) L Anion Gap 8 mmol/L (5-15) Blood Urea Nitrogen 7 mg/dL (7-18) Creatinine 0.3 MG/DL (0.55-1.30) L Estimat Glomerular Filtration Rate mL/min (>60) Glucose Level 235 MG/DL (74-106) #H Calcium Level 5.0 MG/DL (8.5-10.1) #*L Current Medications Medications (Trade) Dose Ordered Sig/Brianna Route PRN Reason Start Time Stop Time Status Last Admin Dose Admin Acetaminophen (Tylenol) 650 mg Q6H PRN ORAL Mild Pain/Temp > 100.5 07/06/17 11:45 08/05/17 11:44 07/06/17 11:46 Dextrose/Sodium Chloride 1,000 ml @ 60 mls/hr [id number] IV 07/02/17 12:45 07/30/17 12:44 07/06/17 00:51 Heparin Sodium/ Sodium Chloride (Heparin 2000 units/Ns 1000ml premix) 2,000 unit ONCE PRN IV FOR PICC LINE PLACEMENT 07/05/17 14:45 07/06/17 14:44 Lidocaine HCl (Xylocaine 1% 30ml) 30 ml ONCE PRN INJ FOR PICC LINE PLACEMENT 07/05/17 14:45 07/06/17 14:44 Pantoprazole (Protonix) 40 mg EVERY 12 HOURS IVP 07/02/17 21:00 07/31/17 09:59 07/06/17 08:54 Potassium Chloride (K-Dur) 20 meq THREE TIMES A DAY GT 07/06/17 09:00 08/05/17 08:59 07/06/17 08:54 Vancomycin HCl (Vanco rx to dose) 1 ea DAILY PRN MISC Per rx protocol 07/03/17 14:15 08/02/17 14:14 Vancomycin/Sodium Chloride 250 ml @ 166.667 mls/hr Q24H IVPB 07/03/17 16:00 08/02/17 15:59 07/05/17 17:40 Godwin Weiss M.D. Jul 06, 2017 14:29
--- NOTE | 2017-07-06 15:38 | Nephrology Progress Note ---
Assessment/Plan Problem List: (1) Dysphagia (2) PEG (percutaneous endoscopic gastrostomy) status (3) Severe anemia (4) Dehydration (5) GI bleed (6) Hypotension (arterial) (7) Upper gastrointestinal bleed (8) Bradycardia (9) Acute blood loss anemia (10) Severe malnutrition (11) Troponin level elevated Plan Monitor temp Anemia worsening, s/p transfusion Monitor H&H, transfuse PRN ABG stat Replete K and calcium Monitor lytes and correct prn Continue daily PPI Will f/u with GI - EGD GI, ID, cardio, and Hematology following Abx per ID AM labs Subjective ROS Limited/Unobtainable: Yes Subjective In bed, on non-rebreather, had a fever 102 earlier, G-tube feeding ongoing, non verbal, does not follow commands Objective Objective Last 24 Hour Vital Signs Date Time Temp Pulse Resp B/P (MAP) Pulse Ox O2 Delivery O2 Flow Rate FiO2 07/06/17 12:45 97.5 07/06/17 12:00 97.5 68 22 157/87 96 Nasal Cannula 4.0 07/06/17 12:00 74 07/06/17 09:56 Nasal Cannula 2.0 28 07/06/17 09:56 95 Nasal Cannula 2.0 28 07/06/17 08:00 99.1 65 20 120/56 92 Nasal Cannula 2.0 07/06/17 08:00 64 07/06/17 04:00 97.0 59 18 119/66 95 Nasal Cannula 2.0 07/06/17 04:00 46 07/06/17 00:00 49 07/06/17 00:00 98.0 18 129/63 96 Nasal Cannula 2.0 07/05/17 20:00 72 07/05/17 20:00 99.1 66 18 140/66 90 Nasal Cannula 2.0 07/05/17 16:00 97.0 71 20 163/81 95 07/05/17 16:00 58 Intake and Output 07/05/17 07/06/17 19:00 07:00 Intake Total 2186.667 ml 1389.333 ml Output Total 1 ml Balance 2185.667 ml 1389.333 ml Intake Free Water 900 ml 120 ml IV Total 846.667 ml 741.333 ml Tube Feeding 440 ml 528 ml Output Urine Total 1 ml # Voids 1 3 Laboratory Tests 2/10/18 06:00: White Blood Count 5.2, Red Blood Count 2.50L, Hemoglobin 7.5L, Hematocrit 22.5L , Mean Corpuscular Volume 90, Mean Corpuscular Hemoglobin 29.9, Mean Corpuscular Hemoglobin Concent 33.1, Red Cell Distribution Width 20.2H, Platelet Count 177, Mean Platelet Volume 6.6, Neutrophils (%) (Auto) , Lymphocytes (%) (Auto) , Monocytes (%) (Auto) , Eosinophils (%) (Auto) , Basophils (%) (Auto) , Differential Total Cells Counted 100, Neutrophils % ( Manual) 85H, Lymphocytes % (Manual) 8L, Monocytes % (Manual) 7, Eosinophils % ( Manual) 0, Basophils % (Manual) 0, Band Neutrophils 0, Platelet Estimate Adequate, Platelet Morphology Normal, Hypochromasia 3+, Anisocytosis 2+, Sodium Level 144, Potassium Level 2.1*L, Chloride Level 118H, Carbon Dioxide Level 18L , Anion Gap 8, Blood Urea Nitrogen 7, Creatinine 0.3L, Estimat Glomerular Filtration Rate , Glucose Level 235#H, Calcium Level 5.0#*L Height (Feet): 5 Height (Inches): 5.00 Weight (Pounds): 110 General Appearance: no apparent distress EENT: normal ENT inspection Neck: non-tender Cardiovascular: normal rate Respiratory/Chest: decreased breath sounds Abdomen: soft Extremities: trace edema Neurologic: other - non verbal Leyla Jordan N.P. Jul 06, 2017 15:37
[2017-07-06 16:00] VITALS: BP 154/96
[2017-07-06] MEDS: Vancomycin 750mg/NS 250ml IVPB SCH (16:00)
--- NOTE | 2017-07-06 16:06 | General Progress Note ---
Assessment/Plan Assessment/Plan Assessment (1) Hypovolemic shock ICD Codes: R57.1 - Hypovolemic shock SNOMED: 09824834 (2) Encephalopathy ICD Codes: G93.40 - Encephalopathy, unspecified SNOMED: 75998419 (3) Severe malnutrition ICD Codes: E43 - Unspecified severe protein-calorie malnutrition SNOMED: 94223386 (4) Acute blood loss anemia ICD Codes: D62 - Acute posthemorrhagic anemia SNOMED: 741724698 (5) Dehydration ICD Codes: E86.0 - Dehydration SNOMED: 78738022 (6) Dysphagia ICD Codes: R13.10 - Dysphagia, unspecified SNOMED: 25626396, 347905388 (7) GI bleed ICD Codes: K92.2 - Gastrointestinal hemorrhage, unspecified SNOMED: 97967866 (8) Severe anemia ICD Codes: D64.9 - Anemia, unspecified SNOMED: 244709815 (9) Recurrent Upper gastrointestinal bleed ICD Codes: K92.2 - Gastrointestinal hemorrhage, unspecified SNOMED: 77521105 Status: stable Assessment/Plan EGD deferred - will plan for Saturday GTFs per prn transfusions ppi bid venofer fu labs Subjective Allergies: Coded Allergies: No Known Allergies (Unverified , 06/30/17) Subjective minimally interactive tolerating TF getting RBC transfusion some GT site leak Objective Last 24 Hour Vital Signs Date Time Temp Pulse Resp B/P (MAP) Pulse Ox O2 Delivery O2 Flow Rate FiO2 07/06/17 12:45 97.5 07/06/17 12:00 97.5 68 22 157/87 96 Nasal Cannula 4.0 07/06/17 12:00 74 07/06/17 09:56 Nasal Cannula 2.0 28 07/06/17 09:56 95 Nasal Cannula 2.0 28 07/06/17 08:00 99.1 65 20 120/56 92 Nasal Cannula 2.0 07/06/17 08:00 64 07/06/17 04:00 97.0 59 18 119/66 95 Nasal Cannula 2.0 07/06/17 04:00 46 07/06/17 00:00 49 07/06/17 00:00 98.0 18 129/63 96 Nasal Cannula 2.0 07/05/17 20:00 72 07/05/17 20:00 99.1 66 18 140/66 90 Nasal Cannula 2.0 07/05/17 16:00 97.0 71 20 163/81 95 07/05/17 16:00 58 Intake and Output 07/05/17 07/06/17 19:00 07:00 Intake Total 2186.667 ml 1389.333 ml Output Total 1 ml Balance 2185.667 ml 1389.333 ml Intake Free Water 900 ml 120 ml IV Total 846.667 ml 741.333 ml Tube Feeding 440 ml 528 ml Output Urine Total 1 ml # Voids 1 3 Laboratory Tests 07/06/17 06:00: White Blood Count 5.2, Red Blood Count 2.50L, Hemoglobin 7.5L, Hematocrit 22.5L , Mean Corpuscular Volume 90, Mean Corpuscular Hemoglobin 29.9, Mean Corpuscular Hemoglobin Concent 33.1, Red Cell Distribution Width 20.2H, Platelet Count 177, Mean Platelet Volume 6.6, Neutrophils (%) (Auto) , Lymphocytes (%) (Auto) , Monocytes (%) (Auto) , Eosinophils (%) (Auto) , Basophils (%) (Auto) , Differential Total Cells Counted 100, Neutrophils % ( Manual) 85H, Lymphocytes % (Manual) 8L, Monocytes % (Manual) 7, Eosinophils % ( Manual) 0, Basophils % (Manual) 0, Band Neutrophils 0, Platelet Estimate Adequate, Platelet Morphology Normal, Hypochromasia 3+, Anisocytosis 2+, Sodium Level 144, Potassium Level 2.1*L, Chloride Level 118H, Carbon Dioxide Level 18L , Anion Gap 8, Blood Urea Nitrogen 7, Creatinine 0.3L, Estimat Glomerular Filtration Rate , Glucose Level 235#H, Calcium Level 5.0#*L 07/06/17 15:00: Vancomycin Level Trough [Pending] 07/06/17 15:25: Arterial Blood pH 7.430, Arterial Blood Partial Pressure CO2 32.8L, Arterial Blood Partial Pressure O2 260.8H, Arterial Blood HCO3 22.4, Arterial Blood Oxygen Saturation 98.9H, Arterial Blood Base Excess -1.0, Faizan Test Positive Height (Feet): 5 Height (Inches): 5.00 Weight (Pounds): 110 Objective Elderly AA woman Non communicative NCAT supple CTA RR soft NT, (+) GT no edema OBS FAHAD CALABRESE Jul 06, 2017 16:06
[2017-07-06] MEDS ORDERED: NS Irrig 1000ml ONE (16:29)
[2017-07-06] MEDS ORDERED: D5NS 1000ml IV ONE (16:29)
[2017-07-06] MEDS ORDERED: Tubing IV Secondary IV ONE (16:29)
[2017-07-06] MEDS ORDERED: Potassium Chloride 40 MEQ in Sodium Chloride 500ML 550 ML IVPB ONE (16:30)
[2017-07-06] MEDS ORDERED: Calcium Gluconate 10% 1 GM in NS 110 ML IVPB ONE (16:30)
[2017-07-06] MEDS ORDERED: Vancomycin 1250mg/D5W 250ml IVPB ONE (17:00)
--- NOTE | 2017-07-06 17:02 | Cardiac Electrophysiology PN ---
Assessment/Plan Assessment/Plan 1. Atrial fibrillation based on EKG. There is no prior history per her records. Remained in Sinus 50-80. 2. Troponin leak. Levels are flat likely due to demand ischemia in view of Hb as low as 3. Echo Nl EF Off aspirin for Hb 3. Off beta nola for bradycardia 3. Recurrent Bradycardia based on records from [facility] and here also. Asymptomatic. HR now 50s. Keep off any PANDYA or AVN nola. TFT showed no hypothyroidism 4. Dysphagia, status post PEG placement by Dr. Amado at [facility] 06/23/17. GT feeding resumed 5. Profound anemia with hemoglobin around 3. S/P 5 units PRBC OK to proceed with EGD DW RN Subjective Subjective HR in 60. Got 4 units of PRBC last week. Had T 102 and got another PRBC. Nonverbal. RN at bedside. Objective Last 24 Hour Vital Signs Date Time Temp Pulse Resp B/P (MAP) Pulse Ox O2 Delivery O2 Flow Rate FiO2 07/06/17 12:45 97.5 07/06/17 12:00 97.5 68 22 157/87 96 Nasal Cannula 4.0 07/06/17 12:00 74 07/06/17 09:56 Nasal Cannula 2.0 28 07/06/17 09:56 95 Nasal Cannula 2.0 28 07/06/17 08:00 99.1 65 20 120/56 92 Nasal Cannula 2.0 07/06/17 08:00 64 07/06/17 04:00 97.0 59 18 119/66 95 Nasal Cannula 2.0 07/06/17 04:00 46 07/06/17 00:00 49 07/06/17 00:00 98.0 18 129/63 96 Nasal Cannula 2.0 07/05/17 20:00 72 07/05/17 20:00 99.1 66 18 140/66 90 Nasal Cannula 2.0 Intake and Output 07/05/17 07/06/17 19:00 07:00 Intake Total 2186.667 ml 1389.333 ml Output Total 1 ml Balance 2185.667 ml 1389.333 ml Intake Free Water 900 ml 120 ml IV Total 846.667 ml 741.333 ml Tube Feeding 440 ml 528 ml Output Urine Total 1 ml # Voids 1 3 Laboratory Tests Test 07/06/17 06:00 07/06/17 15:00 2/10/18 15:25 White Blood Count 5.2 K/UL (4.8-10.8) Red Blood Count 2.50 M/UL (4.20-5.40) L Hemoglobin 7.5 G/DL (12.0-16.0) L Hematocrit 22.5 % (37.0-47.0) L Mean Corpuscular Volume 90 FL (80-99) Mean Corpuscular Hemoglobin 29.9 PG (27.0-31.0) Mean Corpuscular Hemoglobin Concent 33.1 G/DL (32.0-36.0) Red Cell Distribution Width 20.2 % (11.6-14.8) H Platelet Count 177 K/UL (150-450) Mean Platelet Volume 6.6 FL (6.5-10.1) Neutrophils (%) (Auto) % (45.0-75.0) Lymphocytes (%) (Auto) % (20.0-45.0) Monocytes (%) (Auto) % (1.0-10.0) Eosinophils (%) (Auto) % (0.0-3.0) Basophils (%) (Auto) % (0.0-2.0) Differential Total Cells Counted 100 Neutrophils % (Manual) 85 % (45-75) H Lymphocytes % (Manual) 8 % (20-45) L Monocytes % (Manual) 7 % (1-10) Eosinophils % (Manual) 0 % (0-3) Basophils % (Manual) 0 % (0-2) Band Neutrophils 0 % (0-8) Platelet Estimate Adequate Platelet Morphology Normal Hypochromasia 3+ Anisocytosis 2+ Sodium Level 144 MMOL/L (136-145) Potassium Level 2.1 MMOL/L (3.5-5.1) *L Chloride Level 118 MMOL/L (98-107) H Carbon Dioxide Level 18 MMOL/L (21-32) L Anion Gap 8 mmol/L (5-15) Blood Urea Nitrogen 7 mg/dL (7-18) Creatinine 0.3 MG/DL (0.55-1.30) L Estimat Glomerular Filtration Rate mL/min (>60) Glucose Level 235 MG/DL (74-106) #H Calcium Level 5.0 MG/DL (8.5-10.1) #*L Vancomycin Level Trough 5.1 ug/mL (5.0-12.0) Arterial Blood pH 7.430 (7.350-7.450) Arterial Blood Partial Pressure CO2 32.8 mmHg (35.0-45.0) L Arterial Blood Partial Pressure O2 260.8 mmHg (75.0-100.0) H Arterial Blood HCO3 22.4 mmol/L (22.0-26.0) Arterial Blood Oxygen Saturation 98.9 % (92.0-98.0) H Arterial Blood Base Excess -1.0 Faizan Test Positive Objective HEAD AND NECK: No JVD. LUNGS: Decreased breath sounds. CARDIOVASCULAR: Bradycardic S1 and S2 with no gallop. ABDOMEN: Status post G-tube. EXTREMITIES: No pitting edema. GEOFFREY AGUERO Jul 06, 2017 17:02
[2017-07-06] MEDS: Cefepime HCl 2 GM in NS 55 ML IVPB SCH (18:12)
[2017-07-06 20:00] VITALS: BP 160/91
[2017-07-06] MEDS ORDERED: Cefepime HCl 2 GM in NS 55 ML IVPB SCH (21:00)
--- NOTE | 2017-07-06 22:52 | General Progress Note ---
Assessment/Plan Assessment/Plan #. Anemia due to upper gastrointestinal bleed. --> Anemia workup reviewed. --> Hemoglobin goal is above 7. --> EGD cancelled, will try again Saturday. --> S/P PRBC as hemoglobin fell to 7.5 #. Anemia of iron deficiency. --> Monitor closely. --> Anemia workup reviewed. --> Blood transfusion not required unless symptomatic or hgb <7 #. Failure to thrive, status post percutaneous endoscopic gastrostomy tube. --> monitor #. Dehydration. #. Upper gastrointestinal bleed. --> S/P PRBC --> Monitor closely. Subjective Date patient seen: Jul 06, 2017 Constitutional: Denies: no symptoms, chills, diaphoresis, fever, malaise, weakness, other HEENT: Denies: no symptoms, eye pain, blurred vision, tearing, double vision, ear pain, ear discharge, nose pain, nose congestion, throat pain, throat swelling, mouth pain, mouth swelling, other Cardiovascular: Denies: no symptoms, chest pain, edema, irregular heart rate, lightheadedness, palpitations, syncope, other Respiratory: Denies: no symptoms, cough, orthopnea, shortness of breath, SOB with excertion, SOB at rest, sputum, stridor, wheezing, other Gastrointestinal/Abdominal: Denies: no symptoms, abdomen distended, abdominal pain, black stools, tarry stools, blood in stool, constipated, diarrhea, difficulty swallowing, nausea, poor appetite, poor fluid intake, rectal bleeding , vomiting, other Genitourinary: Denies: no symptoms, burning, discharge, frequency, flank pain, hematuria, incontinence, pain, urgency, other Neurologic/Psychiatric: Denies: no symptoms, anxiety, depressed, emotional problems, headache, numbness, paresthesia, pre-existing deficit, seizure, tingling, tremors, weakness, other Hematologic/Lymphatic: Reports: anemia Allergies: Coded Allergies: No Known Allergies (Unverified , 06/30/17) Subjective Nonverbal. S/P PRBC. Objective Last 24 Hour Vital Signs Date Time Temp Pulse Resp B/P (MAP) Pulse Ox O2 Delivery O2 Flow Rate FiO2 07/06/17 20:03 96 Nasal Cannula 2.0 28 07/06/17 20:03 Nasal Cannula 2.0 28 07/06/17 20:00 56 07/06/17 16:00 55 07/06/17 16:00 96.8 60 20 154/96 100 Nasal Cannula 4.0 07/06/17 12:45 97.5 07/06/17 12:00 97.5 68 22 157/87 96 Nasal Cannula 4.0 07/06/17 12:00 74 07/06/17 09:56 Nasal Cannula 2.0 28 07/06/17 09:56 95 Nasal Cannula 2.0 28 07/06/17 08:00 99.1 65 20 120/56 92 Nasal Cannula 2.0 07/06/17 08:00 64 07/06/17 04:00 97.0 59 18 119/66 95 Nasal Cannula 2.0 07/06/17 04:00 46 07/06/17 00:00 49 07/06/17 00:00 98.0 18 129/63 96 Nasal Cannula 2.0 Intake and Output 07/05/17 07/06/17 19:00 07:00 Intake Total 2186.667 ml 1389.333 ml Output Total 1 ml Balance 2185.667 ml 1389.333 ml Intake Free Water 900 ml 120 ml IV Total 846.667 ml 741.333 ml Tube Feeding 440 ml 528 ml Output Urine Total 1 ml # Voids 1 3 Laboratory Tests 07/06/17 06:00: White Blood Count 5.2, Red Blood Count 2.50L, Hemoglobin 7.5L, Hematocrit 22.5L , Mean Corpuscular Volume 90, Mean Corpuscular Hemoglobin 29.9, Mean Corpuscular Hemoglobin Concent 33.1, Red Cell Distribution Width 20.2H, Platelet Count 177, Mean Platelet Volume 6.6, Neutrophils (%) (Auto) , Lymphocytes (%) (Auto) , Monocytes (%) (Auto) , Eosinophils (%) (Auto) , Basophils (%) (Auto) , Differential Total Cells Counted 100, Neutrophils % ( Manual) 85H, Lymphocytes % (Manual) 8L, Monocytes % (Manual) 7, Eosinophils % ( Manual) 0, Basophils % (Manual) 0, Band Neutrophils 0, Platelet Estimate Adequate, Platelet Morphology Normal, Hypochromasia 3+, Anisocytosis 2+, Sodium Level 144, Potassium Level 2.1*L, Chloride Level 118H, Carbon Dioxide Level 18L , Anion Gap 8, Blood Urea Nitrogen 7, Creatinine 0.3L, Estimat Glomerular Filtration Rate , Glucose Level 235#H, Calcium Level 5.0#*L 07/06/17 15:00: Vancomycin Level Trough 5.1 07/06/17 15:25: Arterial Blood pH 7.430, Arterial Blood Partial Pressure CO2 32.8L, Arterial Blood Partial Pressure O2 260.8H, Arterial Blood HCO3 22.4, Arterial Blood Oxygen Saturation 98.9H, Arterial Blood Base Excess -1.0, Faizan Test Positive Height (Feet): 5 Height (Inches): 5.00 Weight (Pounds): 110 General Appearance: confused Joaquim Dwyer Jul 06, 2017 22:52
[2017-07-07] VITALS: BP 156/88
[2017-07-07 04:00] VITALS: BP 144/94
[2017-07-07 08:00] VITALS: BP 144/94
[2017-07-07] MEDS: Pantoprazole Inj IVP SCH ×2 (08:24→21:25)
[2017-07-07] MEDS: D5NS 1,000 ML IV SCH (08:28)
[2017-07-07 09:19] LABS: HEMATOCRIT 29.6 % (37.0-47.0); MEAN CORPUSCULAR VOLUME 92 FL (80-99); PLATELET COUNT 206 K/UL (150-450); RED BLOOD COUNT 3.23 M/UL (4.20-5.40); RED CELL DISTRIBUTION WIDTH 18.3 % (11.6-14.8); WHITE BLOOD COUNT 6.4 K/UL (4.8-10.8)
[2017-07-07 09:53] LABS: ANION GAP 6 mmol/L (5-15); BLOOD UREA NITROGEN 10 mg/dL (7-18); CALCIUM 7.9 MG/DL (8.5-10.1); CARBON DIOXIDE 24 MMOL/L (21-32); CHLORIDE 103 MMOL/L (98-107); CREATININE 0.4 MG/DL (0.55-1.30); POTASSIUM 3.9 MMOL/L (3.5-5.1); SODIUM 133 MMOL/L (136-145)
--- NOTE | 2017-07-07 10:31 | Diagnostic Imaging Report ---
Indication: Reason For Exam: INFECT Technique: One view of the chest Comparison: 06/30/17, images from PICC line placement 07/05/17 Findings: Patient rotated to the right. Heart size and mediastinal contours are stable. There is worsening of aeration with development of interstitial edema/opacification and bilateral, predominately perihilar airspace opacities. Left arm PICC line has been retracted slightly and the tip now may be in the region of the azygos vein. Multiple surgical clips project over the upper abdomen. No definite pneumothorax. Impression: Worsening of aeration with development of interstitial opacification/edema and patchy, predominantly perihilar bilateral airspace opacities. Findings may be related to CHF as pulmonary edema. Superimposed pneumonia not excluded. Clinical correlation and follow-up exam recommended. Interval retraction of the left arm PICC line, tip now oriented towards the azygos vein.
[2017-07-07 12:00] VITALS: BP 135/82
--- NOTE | 2017-07-07 12:02 | Nephrology Progress Note ---
Assessment/Plan Problem List: (1) Dysphagia (2) PEG (percutaneous endoscopic gastrostomy) status (3) Severe anemia (4) Dehydration (5) GI bleed (6) Hypotension (arterial) (7) Upper gastrointestinal bleed (8) Bradycardia (9) Acute blood loss anemia (10) Severe malnutrition (11) Troponin level elevated (12) Fever Plan Continue Current treatment plan Monitor temp Tylenol - rectal Anemia worsening, s/p transfusion Monitor H&H, transfuse PRN Monitor lytes and correct prn Continue daily PPI Will f/u with GI - EGD GI, ID, cardio, and Hematology following Abx per ID AM labs Subjective ROS Limited/Unobtainable: Yes Subjective In bed, on O2 via nasal cannula, has a fever of 101 earlier, G-tube dislodged, non verbal, does not follow commands Objective Objective Last 24 Hour Vital Signs Date Time Temp Pulse Resp B/P (MAP) Pulse Ox O2 Delivery O2 Flow Rate FiO2 07/07/17 08:00 73 07/07/17 08:00 98.6 74 23 144/94 98 Nasal Cannula 2.0 07/07/17 04:00 65 07/07/17 04:00 98.4 65 23 144/94 98 Nasal Cannula 2.0 07/07/17 00:00 98.2 63 22 156/88 95 Nasal Cannula 2.0 07/07/17 00:00 62 07/06/17 20:03 96 Nasal Cannula 2.0 28 07/06/17 20:03 Nasal Cannula 2.0 28 07/06/17 20:00 56 07/06/17 20:00 97.7 60 20 160/91 100 Nasal Cannula 2.0 07/06/17 16:00 55 07/06/17 16:00 96.8 60 20 154/96 100 Nasal Cannula 4.0 07/06/17 12:45 97.5 07/06/17 12:00 97.5 68 22 157/87 96 Nasal Cannula 4.0 07/06/17 12:00 74 Intake and Output 07/06/17 07/07/17 19:00 07:00 Intake Total 1024 ml 973 ml Balance 1024 ml 973 ml Intake Free Water 300 ml IV Total 240 ml 973 ml Tube Feeding 484 ml # Voids 2 # Bowel Movements 3 Laboratory Tests 07/06/17 15:00: Vancomycin Level Trough 5.1 07/06/17 15:25: Arterial Blood pH 7.430, Arterial Blood Partial Pressure CO2 32.8L, Arterial Blood Partial Pressure O2 260.8H, Arterial Blood HCO3 22.4, Arterial Blood Oxygen Saturation 98.9H, Arterial Blood Base Excess -1.0, Faizan Test Positive 07/07/17 00:00: White Blood Count 6.4, Red Blood Count 3.23L, Hemoglobin 10.0#L, Hematocrit 29.6 #L, Mean Corpuscular Volume 92, Mean Corpuscular Hemoglobin 30.9, Mean Corpuscular Hemoglobin Concent 33.7, Red Cell Distribution Width 18.3H, Platelet Count 206, Mean Platelet Volume 7.0, Neutrophils (%) (Auto) , Lymphocytes (%) (Auto) , Monocytes (%) (Auto) , Eosinophils (%) (Auto) , Basophils (%) (Auto) , Differential Total Cells Counted 100, Neutrophils % ( Manual) 90H, Lymphocytes % (Manual) 5L, Monocytes % (Manual) 5, Eosinophils % ( Manual) 0, Basophils % (Manual) 0, Band Neutrophils 0, Platelet Estimate Adequate, Platelet Morphology Normal, Hypochromasia 1+, Anisocytosis 2+, Sodium Level 133L, Potassium Level 3.9#, Chloride Level 103, Carbon Dioxide Level 24, Anion Gap 6, Blood Urea Nitrogen 10, Creatinine 0.4L, Estimat Glomerular Filtration Rate , Glucose Level 127#H, Calcium Level 7.9#L 07/07/17 11:15: Ionized Calcium (Measured) [Pending] Height (Feet): 5 Height (Inches): 5.00 Weight (Pounds): 110 General Appearance: no apparent distress, confused EENT: normal ENT inspection Neck: normal alignment Cardiovascular: normal rate Respiratory/Chest: decreased breath sounds Abdomen: soft, other - koehler catheter in place of G-tube Extremities: trace edema Neurologic: disoriented, other - non verbal Leyla Jordan N.P. Jul 07, 2017 12:02
[2017-07-07] MEDS ORDERED: Acetaminophen 650 MG SUPP RECTAL PRN (12:15)
[2017-07-07 16:00] VITALS: BP 126/52
[2017-07-07] MEDS: Cefepime HCl 2 GM in NS 55 ML IVPB SCH (16:28)
[2017-07-07] MEDS: Vancomycin 1gm/D5W 275ml IVPB SCH ×2 (16:32)
[2017-07-07] MEDS ORDERED: Tubing IV Secondary IV ONE (16:38)
[2017-07-07] MEDS ORDERED: D5NS 1000ml IV ONE (16:38)
[2017-07-07] MEDS ORDERED: Tubing Blood Filter IV ONE (16:38)
[2017-07-07] MEDS ORDERED: Sterile Water Irrig 1000ml IRRIG ONE (16:38)
[2017-07-07] MEDS ORDERED: NS 500ML ONE (16:38)
--- NOTE | 2017-07-07 16:59 | General Progress Note ---
Assessment/Plan Assessment/Plan Assessment (1) Hypovolemic shock ICD Codes: R57.1 - Hypovolemic shock SNOMED: 41583267 (2) Encephalopathy ICD Codes: G93.40 - Encephalopathy, unspecified SNOMED: 28837821 (3) Severe malnutrition ICD Codes: E43 - Unspecified severe protein-calorie malnutrition SNOMED: 26781607 (4) Acute blood loss anemia ICD Codes: D62 - Acute posthemorrhagic anemia SNOMED: 701639669 (5) Dehydration ICD Codes: E86.0 - Dehydration SNOMED: 41987582 (6) Dysphagia ICD Codes: R13.10 - Dysphagia, unspecified SNOMED: 99174117, 491199311 (7) GI bleed ICD Codes: K92.2 - Gastrointestinal hemorrhage, unspecified SNOMED: 56688011 (8) Severe anemia ICD Codes: D64.9 - Anemia, unspecified SNOMED: 535452871 (9) Recurrent Upper gastrointestinal bleed ICD Codes: K92.2 - Gastrointestinal hemorrhage, unspecified SNOMED: 21644350 Status: stable Assessment/Plan EGD deferred - will plan for Saturday (change GT at EGD) GTFs per RD prn transfusions ppi bid venofer fu labs Subjective Allergies: Coded Allergies: No Known Allergies (Unverified , 06/30/17) Subjective minimally interactive tolerating TF GT fell out --> replaced by zakia by RN Objective Last 24 Hour Vital Signs Date Time Temp Pulse Resp B/P (MAP) Pulse Ox O2 Delivery O2 Flow Rate FiO2 07/07/17 16:00 99.1 70 26 126/52 97 Nasal Cannula 2.0 07/07/17 12:46 98.6 07/07/17 12:00 78 07/07/17 12:00 100.5 79 32 135/82 98 Nasal Cannula 07/07/17 08:00 73 07/07/17 08:00 98.6 74 23 144/94 98 Nasal Cannula 2.0 07/07/17 04:00 65 07/07/17 04:00 98.4 65 23 144/94 98 Nasal Cannula 2.0 07/07/17 00:00 98.2 63 22 156/88 95 Nasal Cannula 2.0 07/07/17 00:00 62 07/06/17 20:03 96 Nasal Cannula 2.0 28 07/06/17 20:03 Nasal Cannula 2.0 28 07/06/17 20:00 56 07/06/17 20:00 97.7 60 20 160/91 100 Nasal Cannula 2.0 Intake and Output 07/06/17 07/07/17 19:00 07:00 Intake Total 1024 ml 973 ml Balance 1024 ml 973 ml Intake Free Water 300 ml IV Total 240 ml 973 ml Tube Feeding 484 ml # Voids 2 # Bowel Movements 3 Laboratory Tests 07/07/17 00:00: White Blood Count 6.4, Red Blood Count 3.23L, Hemoglobin 10.0#L, Hematocrit 29.6 #L, Mean Corpuscular Volume 92, Mean Corpuscular Hemoglobin 30.9, Mean Corpuscular Hemoglobin Concent 33.7, Red Cell Distribution Width 18.3H, Platelet Count 206, Mean Platelet Volume 7.0, Neutrophils (%) (Auto) , Lymphocytes (%) (Auto) , Monocytes (%) (Auto) , Eosinophils (%) (Auto) , Basophils (%) (Auto) , Differential Total Cells Counted 100, Neutrophils % ( Manual) 90H, Lymphocytes % (Manual) 5L, Monocytes % (Manual) 5, Eosinophils % ( Manual) 0, Basophils % (Manual) 0, Band Neutrophils 0, Platelet Estimate Adequate, Platelet Morphology Normal, Hypochromasia 1+, Anisocytosis 2+, Sodium Level 133L, Potassium Level 3.9#, Chloride Level 103, Carbon Dioxide Level 24, Anion Gap 6, Blood Urea Nitrogen 10, Creatinine 0.4L, Estimat Glomerular Filtration Rate , Glucose Level 127#H, Calcium Level 7.9#L 07/07/17 11:15: Ionized Calcium (Measured) 1.04L 07/07/17 13:00: Stool Occult Blood [Pending] Height (Feet): 5 Height (Inches): 5.00 Weight (Pounds): 110 Objective Elderly AA woman Non communicative NCAT supple CTA RR soft NT, (+) GT (koehler) no edema OBS FAHAD CALABRESE Jul 07, 2017 16:59
--- NOTE | 2017-07-07 17:32 | Infectious Diseases Prog Note ---
Assessment/Plan Problems: (1) HCAP (healthcare-associated pneumonia) Assessment & Plan: with worsening bilateral interstitial infiltrates, continue vancomycin and cefepime empiric coverage for 10 days .monitor CXR (2) Septic shock Assessment & Plan: with coag negative staph , source? suspect skin wound . repeated blood culture is still positive for coag negative staph , will add rifampin and continue vancomycin for four weeks , await final repeated blood culture . (3) Hypotension (arterial) Assessment & Plan: improving , suspect due to sepsis and anemia , continue blood pressure support and antibiotics (4) Upper gastrointestinal bleed Assessment & Plan: monitor H/H, transfuse as needed , GI is following (5) Severe anemia Assessment & Plan: suspect due to GI blood loss , monitor H/H, transfuse as needed (6) Fever Assessment & Plan: due to pneumonia , continue wide spectrum antibiotic empiric coverage , and tylenol Subjective ROS Limited/Unobtainable: Yes Allergies: Coded Allergies: No Known Allergies (Unverified , 06/30/17) Subjective she was the same, lying in bed, nonverbal , dosen't follow commands , had low grade fever today , no chills, no cough or SOB . Objective Vital Signs Last 24 Hour Vital Signs Date Time Temp Pulse Resp B/P (MAP) Pulse Ox O2 Delivery O2 Flow Rate FiO2 07/07/17 16:00 99.1 70 26 126/52 97 Nasal Cannula 2.0 07/07/17 16:00 74 07/07/17 12:46 98.6 07/07/17 12:00 78 07/07/17 12:00 100.5 79 32 135/82 98 Nasal Cannula 07/07/17 08:00 73 07/07/17 08:00 98.6 74 23 144/94 98 Nasal Cannula 2.0 07/07/17 04:00 65 07/07/17 04:00 98.4 65 23 144/94 98 Nasal Cannula 2.0 07/07/17 00:00 98.2 63 22 156/88 95 Nasal Cannula 2.0 07/07/17 00:00 62 07/06/17 20:03 96 Nasal Cannula 2.0 28 07/06/17 20:03 Nasal Cannula 2.0 28 07/06/17 20:00 56 07/06/17 20:00 97.7 60 20 160/91 100 Nasal Cannula 2.0 Height (Feet): 5 Height (Inches): 5.00 Weight (Pounds): 110 General Appearance: WD/WN, no acute distress, cachetic HEENT: normocephalic, atraumatic, anicteric, mucous membranes moist Respiratory/Chest: chest wall non-tender, no respiratory distress, no accessory muscle use, decreased breath sounds, crackles/rales Cardiovascular: normal peripheral pulses, normal rate, regular rhythm, no gallop/murmur, no JVD Abdomen: normal bowel sounds, soft, non tender, no organomegaly, non distended , no mass, no scars Genitourinary: normal external genitalia Extremities: no cyanosis, no clubbing Skin: no rash, no lesions, ulcers Neurologic/Psychiatric: alert, unresponsiveness Microbiology Date/Time Source Procedure Growth Status 07/05/17 16:10 Blood Blood Culture - Preliminary Resulted 07/05/17 16:10 Blood Blood Culture - Preliminary NO GROWTH AFTER 24 HOURS Resulted Laboratory Tests Test 07/07/17 00:00 07/07/17 11:15 07/07/17 13:00 White Blood Count 6.4 K/UL (4.8-10.8) Red Blood Count 3.23 M/UL (4.20-5.40) L Hemoglobin 10.0 G/DL (12.0-16.0) #L Hematocrit 29.6 % (37.0-47.0) #L Mean Corpuscular Volume 92 FL (80-99) Mean Corpuscular Hemoglobin 30.9 PG (27.0-31.0) Mean Corpuscular Hemoglobin Concent 33.7 G/DL (32.0-36.0) Red Cell Distribution Width 18.3 % (11.6-14.8) H Platelet Count 206 K/UL (150-450) Mean Platelet Volume 7.0 FL (6.5-10.1) Neutrophils (%) (Auto) % (45.0-75.0) Lymphocytes (%) (Auto) % (20.0-45.0) Monocytes (%) (Auto) % (1.0-10.0) Eosinophils (%) (Auto) % (0.0-3.0) Basophils (%) (Auto) % (0.0-2.0) Differential Total Cells Counted 100 Neutrophils % (Manual) 90 % (45-75) H Lymphocytes % (Manual) 5 % (20-45) L Monocytes % (Manual) 5 % (1-10) Eosinophils % (Manual) 0 % (0-3) Basophils % (Manual) 0 % (0-2) Band Neutrophils 0 % (0-8) Platelet Estimate Adequate Platelet Morphology Normal Hypochromasia 1+ Anisocytosis 2+ Sodium Level 133 MMOL/L (136-145) L Potassium Level 3.9 MMOL/L (3.5-5.1) # Chloride Level 103 MMOL/L (98-107) Carbon Dioxide Level 24 MMOL/L (21-32) Anion Gap 6 mmol/L (5-15) Blood Urea Nitrogen 10 mg/dL (7-18) Creatinine 0.4 MG/DL (0.55-1.30) L Estimat Glomerular Filtration Rate mL/min (>60) Glucose Level 127 MG/DL (74-106) #H Calcium Level 7.9 MG/DL (8.5-10.1) #L Ionized Calcium (Measured) 1.04 mmol/L (1.10-1.35) L Stool Occult Blood Pending Current Medications Medications (Trade) Dose Ordered Sig/Brianna Route PRN Reason Start Time Stop Time Status Last Admin Dose Admin Acetaminophen (Tylenol) 650 mg Q4H PRN RECTAL Mild Pain/Temp > 100.5 07/07/17 12:15 08/06/17 12:14 07/07/17 12:16 Acetaminophen (Tylenol) 650 mg Q6H PRN ORAL Mild Pain/Temp > 100.5 07/06/17 11:45 08/05/17 11:44 07/06/17 11:46 Cefepime HCl 2 gm/ Sodium Chloride 55 ml @ 110 mls/hr DAILY@1730 IVPB 07/06/17 17:30 07/13/17 17:29 07/07/17 16:28 Chlorhexidine Gluconate (Karime-Hex 2%) 1 applic DAILY@2000 TOPIC 07/07/17 20:00 08/06/17 19:59 Dextrose/Sodium Chloride 1,000 ml @ 60 mls/hr [id number] IV 07/02/17 12:45 07/30/17 12:44 07/07/17 08:28 Pantoprazole (Protonix) 40 mg EVERY 12 HOURS IVP 07/02/17 21:00 07/31/17 09:59 07/07/17 08:24 Vancomycin HCl (Vanco rx to dose) 1 ea DAILY PRN MISC Per rx protocol 07/03/17 14:15 08/02/17 14:14 Vancomycin HCl 1 gm/Dextrose 275 ml @ 183.708 mls/hr Q24H IVPB 07/07/17 17:00 07/12/17 16:59 07/07/17 16:32 Godwin Weiss M.D. Jul 07, 2017 17:32
[2017-07-07 20:00] VITALS: BP 150/92
[2017-07-07] MEDS: Dyna-Hex 2% Top Sol 2oz TOPIC SCH (21:25)
--- NOTE | 2017-07-07 23:16 | General Progress Note ---
Assessment/Plan Assessment/Plan #. Anemia due to upper gastrointestinal bleed. --> Anemia workup reviewed. --> Hemoglobin goal is above 7. --> EGD cancelled, will try again Saturday. --> S/P PRBC, hgb now >10 --> Monitor closely. #. Anemia of iron deficiency. --> Monitor closely. --> Anemia workup reviewed. --> Blood transfusion not required unless symptomatic or hgb <7 #. Failure to thrive, status post percutaneous endoscopic gastrostomy tube. --> monitor #. Dehydration. #. Upper gastrointestinal bleed. --> S/P PRBC --> Occult blood pending. --> Monitor closely. Subjective Date patient seen: Jul 07, 2017 Constitutional: Denies: no symptoms, chills, diaphoresis, fever, malaise, weakness, other HEENT: Denies: no symptoms, eye pain, blurred vision, tearing, double vision, ear pain, ear discharge, nose pain, nose congestion, throat pain, throat swelling, mouth pain, mouth swelling, other Cardiovascular: Denies: no symptoms, chest pain, edema, irregular heart rate, lightheadedness, palpitations, syncope, other Respiratory: Denies: no symptoms, cough, orthopnea, shortness of breath, SOB with excertion, SOB at rest, sputum, stridor, wheezing, other Gastrointestinal/Abdominal: Denies: no symptoms, abdomen distended, abdominal pain, black stools, tarry stools, blood in stool, constipated, diarrhea, difficulty swallowing, nausea, poor appetite, poor fluid intake, rectal bleeding , vomiting, other Genitourinary: Denies: no symptoms, burning, discharge, frequency, flank pain, hematuria, incontinence, pain, urgency, other Neurologic/Psychiatric: Denies: no symptoms, anxiety, depressed, emotional problems, headache, numbness, paresthesia, pre-existing deficit, seizure, tingling, tremors, weakness, other Hematologic/Lymphatic: Reports: anemia Allergies: Coded Allergies: No Known Allergies (Unverified , 06/30/17) Subjective Nonverbal. S/P PRBC. No acute events overnight. Objective Last 24 Hour Vital Signs Date Time Temp Pulse Resp B/P (MAP) Pulse Ox O2 Delivery O2 Flow Rate FiO2 07/07/17 20:00 99.1 67 25 150/92 94 Nasal Cannula 2.0 07/07/17 20:00 68 07/07/17 19:30 Nasal Cannula 2.0 28 07/07/17 19:30 94 Nasal Cannula 2.0 28 07/07/17 16:00 99.1 70 26 126/52 97 Nasal Cannula 2.0 07/07/17 16:00 74 07/07/17 12:46 98.6 07/07/17 12:00 78 07/07/17 12:00 100.5 79 32 135/82 98 Nasal Cannula 07/07/17 08:00 73 07/07/17 08:00 98.6 74 23 144/94 98 Nasal Cannula 2.0 07/07/17 04:00 65 07/07/17 04:00 98.4 65 23 144/94 98 Nasal Cannula 2.0 07/07/17 00:00 98.2 63 22 156/88 95 Nasal Cannula 2.0 07/07/17 00:00 62 Intake and Output 07/06/17 07/07/17 19:00 07:00 Intake Total 1024 ml 973 ml Balance 1024 ml 973 ml Intake Free Water 300 ml IV Total 240 ml 973 ml Tube Feeding 484 ml # Voids 2 # Bowel Movements 3 Laboratory Tests 07/07/17 00:00: White Blood Count 6.4, Red Blood Count 3.23L, Hemoglobin 10.0#L, Hematocrit 29.6 #L, Mean Corpuscular Volume 92, Mean Corpuscular Hemoglobin 30.9, Mean Corpuscular Hemoglobin Concent 33.7, Red Cell Distribution Width 18.3H, Platelet Count 206, Mean Platelet Volume 7.0, Neutrophils (%) (Auto) , Lymphocytes (%) (Auto) , Monocytes (%) (Auto) , Eosinophils (%) (Auto) , Basophils (%) (Auto) , Differential Total Cells Counted 100, Neutrophils % ( Manual) 90H, Lymphocytes % (Manual) 5L, Monocytes % (Manual) 5, Eosinophils % ( Manual) 0, Basophils % (Manual) 0, Band Neutrophils 0, Platelet Estimate Adequate, Platelet Morphology Normal, Hypochromasia 1+, Anisocytosis 2+, Sodium Level 133L, Potassium Level 3.9#, Chloride Level 103, Carbon Dioxide Level 24, Anion Gap 6, Blood Urea Nitrogen 10, Creatinine 0.4L, Estimat Glomerular Filtration Rate , Glucose Level 127#H, Calcium Level 7.9#L 07/07/17 11:15: Ionized Calcium (Measured) 1.04L 07/07/17 13:00: Stool Occult Blood [Pending] Height (Feet): 5 Height (Inches): 5.00 Weight (Pounds): 110 General Appearance: no apparent distress Cardiovascular: normal rate, regular rhythm Respiratory/Chest: decreased breath sounds Joaquim Dwyer Jul 07, 2017 23:16
[2017-07-08] VITALS (10 sets, daily range): BP systolic 74–162; BP diastolic 50–86
[2017-07-08] MEDS: D5NS 1,000 ML IV SCH ×2 (02:39→18:42)
[2017-07-08 07:09] LABS: BASOPHILS % (AUTO) 0.6 % (0.0-2.0); EOSINOPHILS % (AUTO) 0.1 % (0.0-3.0); HEMATOCRIT 29.5 % (37.0-47.0); HEMOGLOBIN 9.8 G/DL (12.0-16.0); LYMPHOCYTES % (AUTO) 10.3 % (20.0-45.0); MEAN CORPUSCULAR VOLUME 91 FL (80-99); MONOCYTES % (AUTO) 6.3 % (1.0-10.0); NEUTROPHILS % (AUTO) 82.7 % (45.0-75.0); PLATELET COUNT 173 K/UL (150-450); RED BLOOD COUNT 3.23 M/UL (4.20-5.40); RED CELL DISTRIBUTION WIDTH 17.9 % (11.6-14.8); WHITE BLOOD COUNT 4.8 K/UL (4.8-10.8)
[2017-07-08 07:15] LABS: ALANINE AMINOTRANSFERASE 27 U/L (12-78); ALBUMIN 1.6 G/DL (3.4-5.0); ALBUMIN/GLOBULIN RATIO 0.5 (1.0-2.7); ALKALINE PHOSPHATASE 42 U/L (46-116); ANION GAP 7 mmol/L (5-15); ASPARTATE AMINO TRANSFERASE 31 U/L (15-37); BILIRUBIN,TOTAL 0.4 MG/DL (0.2-1.0); BLOOD UREA NITROGEN 8 mg/dL (7-18); CALCIUM 7.8 MG/DL (8.5-10.1); CARBON DIOXIDE 25 MMOL/L (21-32); CHLORIDE 104 MMOL/L (98-107); CREATININE 0.5 MG/DL (0.55-1.30); POTASSIUM 3.4 MMOL/L (3.5-5.1); SODIUM 136 MMOL/L (136-145)
[2017-07-08] MEDS: Pantoprazole Inj IVP SCH (08:58)
[2017-07-08] MEDS ORDERED: Tubing IV Extension IV ONE ×2 (09:20)
[2017-07-08] MEDS ORDERED: NS 500ML IV ONE (09:20)
--- NOTE | 2017-07-08 09:34 | Pre-Procedure Note/Attestation ---
Pre-Procedure Note/Attestation Complete Prior to Procedure Planned Procedure: not applicable Procedure Narrative: egd Indications for Procedure Pre-Operative Diagnosis: gib Attestation I attest that I discussed the nature of the procedure; its benefits; risks and complications; and alternatives (and the risks and benefits of such alternatives ), prior to the procedure, with the patient (or the patient's legal wine sales representative). I attest that, if there was a reasonable possibility of needing a blood transfusion, the patient (or the patient's legal wine sales representative) was given the [facility] standardized written summary, pursuant to the Travis Raissa Blood Safety Act ([place] Health and Safety Code # 1645, as amended). I attest that I re-evaluated the patient just prior to the surgery and that there has been no change in the patient's H&P, except as documented below: MELLISSA SCOTT Jul 08, 2017 09:33
[2017-07-08] MEDS ORDERED: LR 1000ml ONE (09:45)
[2017-07-08] MEDS ORDERED: Midazolam 2mg/2ml Inj ONE (09:45)
[2017-07-08] MEDS ORDERED: Propofol 200mg/20ml IV ONE (09:45)
[2017-07-08] MEDS ORDERED: Lidocaine 1% MPF 10mg/ml 5ml ONE (09:45)
--- NOTE | 2017-07-08 09:49 | General Progress Note ---
Assessment/Plan Problem List: (1) PEG (percutaneous endoscopic gastrostomy) status ICD Codes: Z93.1 - Gastrostomy status SNOMED: 812324526, 127666459 (2) GI bleed ICD Codes: K92.2 - Gastrointestinal hemorrhage, unspecified SNOMED: 98738156 (3) Dysphagia ICD Codes: R13.10 - Dysphagia, unspecified SNOMED: 93703479, 853897945 (4) Encephalopathy ICD Codes: G93.40 - Encephalopathy, unspecified SNOMED: 84060547 (5) Troponin level elevated ICD Codes: R74.8 - Abnormal levels of other serum enzymes SNOMED: 221712847, 618766612, 606845268 Assessment/Plan ppi plan EGD today prn blood transfusion Subjective ROS Limited/Unobtainable: No Allergies: Coded Allergies: No Known Allergies (Unverified , 06/30/17) Objective Last 24 Hour Vital Signs Date Time Temp Pulse Resp B/P (MAP) Pulse Ox O2 Delivery O2 Flow Rate FiO2 07/08/17 07:04 97 Nasal Cannula 2.0 32 07/08/17 07:04 Nasal Cannula 2.0 28 07/08/17 04:00 57 07/08/17 04:00 98.1 60 23 133/62 94 Nasal Cannula 2.0 07/08/17 03:33 61 07/08/17 00:00 99.1 62 23 144/68 98 Nasal Cannula 2.0 07/07/17 20:00 99.1 67 25 150/92 94 Nasal Cannula 2.0 07/07/17 20:00 68 07/07/17 19:30 Nasal Cannula 2.0 28 07/07/17 19:30 94 Nasal Cannula 2.0 28 07/07/17 16:00 99.1 70 26 126/52 97 Nasal Cannula 2.0 07/07/17 16:00 74 07/07/17 12:46 98.6 07/07/17 12:00 78 07/07/17 12:00 100.5 79 32 135/82 98 Nasal Cannula Intake and Output 07/07/17 07/08/17 19:00 07:00 Intake Total 838.708 ml 653 ml Balance 838.708 ml 653 ml IV Total 838.708 ml 653 ml # Voids 2 # Bowel Movements 3 1 Laboratory Tests 07/07/17 11:15: Ionized Calcium (Measured) 1.04L 07/07/17 13:00: Stool Occult Blood Positive 07/08/17 06:25: White Blood Count 4.8, Red Blood Count 3.23L, Hemoglobin 9.8L, Hematocrit 29.5L , Mean Corpuscular Volume 91, Mean Corpuscular Hemoglobin 30.4, Mean Corpuscular Hemoglobin Concent 33.3, Red Cell Distribution Width 17.9H, Platelet Count 173, Mean Platelet Volume 6.9, Neutrophils (%) (Auto) 82.7H, Lymphocytes (%) (Auto) 10.3L, Monocytes (%) (Auto) 6.3, Eosinophils (%) (Auto) 0.1, Basophils (%) (Auto) 0.6, Sodium Level 136, Potassium Level 3.4L, Chloride Level 104, Carbon Dioxide Level 25, Anion Gap 7, Blood Urea Nitrogen 8, Creatinine 0.5L, Estimat Glomerular Filtration Rate , Glucose Level 103, Calcium Level 7.8L, Magnesium Level 1.3L, Total Bilirubin 0.4, Aspartate Amino Transf (AST/SGOT) 31, Alanine Aminotransferase (ALT/SGPT) 27, Alkaline Phosphatase 42L, Total Protein 5.1L, Albumin 1.6L, Globulin 3.5, Albumin/ Globulin Ratio 0.5L Height (Feet): 5 Height (Inches): 5.00 Weight (Pounds): 110 General Appearance: lethargic EENT: normal ENT inspection Neck: supple Cardiovascular: normal rate Respiratory/Chest: decreased breath sounds Abdomen: normal bowel sounds, non tender, soft Extremities: non-tender MELLISSA SCOTT Jul 08, 2017 09:49
[2017-07-08] MEDS ORDERED: LR 1000ml 1,000 ML IVLG SCH (09:53)
[2017-07-08] MEDS ORDERED: Atropine Inj 1mg/10ml Syr IV PRN (10:00)
[2017-07-08] MEDS ORDERED: DiphenhydrAMINE 50mg/ml Inj IVP PRN (10:00)
[2017-07-08] MEDS ORDERED: oxyCODONE HCL/Acetaminophen 5/325mg ORAL PRN (10:00)
[2017-07-08] MEDS ORDERED: Ketorolac 30mg Inj IV PRN (10:00)
[2017-07-08] MEDS ORDERED: Labetalol 5mg/ml 20ml vial IV PRN (10:00)
[2017-07-08] MEDS ORDERED: fentaNYL 100 mcg/2 mL IV PRN (10:00)
[2017-07-08] MEDS ORDERED: Ketorolac 60mg Inj IV PRN (10:00)
[2017-07-08] MEDS ORDERED: Norco 5mg/325mg tab ORAL PRN (10:00)
[2017-07-08] MEDS ORDERED: HYDROcodone/Acetamin 7.5/325 tab ORAL PRN (10:00)
[2017-07-08] MEDS ORDERED: Midazolam 2mg/2ml Inj IVP PRN (10:00)
[2017-07-08] MEDS ORDERED: Hydromorphone 0.5mg/0.5ml inj IVP PRN (10:00)
[2017-07-08] MEDS ORDERED: LORazepam Inj 2mg/ml 1ml IV PRN (10:00)
--- NOTE | 2017-07-08 10:05 | Anethesia Preoperative Eval ---
Anesthesia Pre-op PMH/ROS General Date of Evaluation: Jul 08, 2017 Time of Evaluation: 09:44 Anesthesiologist: Ollei ASA Score: ASA 4 Mallampati Score Class I : Soft palate, uvula, fauces, pillars visible Class II: Soft palate, uvula, fauces visible Class III: Soft palate, base of uvula visible Class IV: Only hard plate visible Mallampati Classification: Class III Surgeon: Sumit Diagnosis: Blanca Flores Surgical Procedure: EGD Anesthesia History: none Family History: no anesthesia problems Allergies: Coded Allergies: No Known Allergies (Unverified , 06/30/17) Medications: see eMAR Past Medical History Cardiovascular: Reports: HTN, other - HL Pulmonary: Reports: asthma, COPD Neurologic/Psychiatric: Reports: dementia, CVA Hematology/Immune: Reports: anemia Anesthesia Pre-op Phys. Exam Physician Exam Last Vital Signs Date Time Temp Pulse Resp B/P (MAP) Pulse Ox O2 Delivery O2 Flow Rate FiO2 07/08/17 07:04 97 Nasal Cannula 2.0 32 07/08/17 04:00 57 07/08/17 04:00 98.1 23 133/62 Constitutional: NAD Neurologic: CN 2-12 intact Cardiovascular: RRR Respiratory: CTA Gastrointestinal: S/NT/ND Airway Exam Mallampati Score: Class III MO: limited ROM: limited Teeth: missing, broken Anesthesia Pre-op A/P Labs Hematology Test 07/08/17 06:25 White Blood Count 4.8 K/UL (4.8-10.8) Red Blood Count 3.23 M/UL (4.20-5.40) L Hemoglobin 9.8 G/DL (12.0-16.0) L Hematocrit 29.5 % (37.0-47.0) L Mean Corpuscular Volume 91 FL (80-99) Mean Corpuscular Hemoglobin 30.4 PG (27.0-31.0) Mean Corpuscular Hemoglobin Concent 33.3 G/DL (32.0-36.0) Red Cell Distribution Width 17.9 % (11.6-14.8) H Platelet Count 173 K/UL (150-450) Mean Platelet Volume 6.9 FL (6.5-10.1) Neutrophils (%) (Auto) 82.7 % (45.0-75.0) H Lymphocytes (%) (Auto) 10.3 % (20.0-45.0) L Monocytes (%) (Auto) 6.3 % (1.0-10.0) Eosinophils (%) (Auto) 0.1 % (0.0-3.0) Basophils (%) (Auto) 0.6 % (0.0-2.0) Chemistry Test 07/07/17 11:15 07/08/17 06:25 Ionized Calcium (Measured) 1.04 mmol/L (1.10-1.35) L Sodium Level 136 MMOL/L (136-145) Potassium Level 3.4 MMOL/L (3.5-5.1) L Chloride Level 104 MMOL/L (98-107) Carbon Dioxide Level 25 MMOL/L (21-32) Anion Gap 7 mmol/L (5-15) Blood Urea Nitrogen 8 mg/dL (7-18) Creatinine 0.5 MG/DL (0.55-1.30) L Estimat Glomerular Filtration Rate mL/min (>60) Glucose Level 103 MG/DL (74-106) Calcium Level 7.8 MG/DL (8.5-10.1) L Magnesium Level 1.3 MG/DL (1.8-2.4) L Total Bilirubin 0.4 MG/DL (0.2-1.0) Aspartate Amino Transf (AST/SGOT) 31 U/L (15-37) Alanine Aminotransferase (ALT/SGPT) 27 U/L (12-78) Alkaline Phosphatase 42 U/L (46-116) L Total Protein 5.1 G/DL (6.4-8.2) L Albumin 1.6 G/DL (3.4-5.0) L Globulin 3.5 g/dL Albumin/Globulin Ratio 0.5 (1.0-2.7) L Risk Assessment & Plan Assessment: ASA 4 Plan: GA Status Change Before Surgery: Nathan Morataya MD Jul 08, 2017 10:05
--- NOTE | 2017-07-08 10:06 | Immediate Post-Op Evaluation ---
Immediate Post-Op Evalulation Immediate Post-Op Evalulation Procedure: EGD Date of Evaluation: Jul 08, 2017 Time of Evaluation: 10:37 IV Fluids: 250 LR Blood Products: 0 Estimated Blood Loss: 1 Urinary Output: 0 Blood Pressure Systolic: 123 Blood Pressure Diastolic: 78 Pulse Rate: 61 Respiratory Rate: 16 O2 Sat by Pulse Oximetry: 100 Temperature (Fahrenheit): 97.4 Pain Score (1-10): 1 Nausea: No Vomiting: No Complications 0 Patient Status: awake, reacts, patent, none Hydration Status: adequate Nathan Levin MD Jul 08, 2017 10:06
--- NOTE | 2017-07-08 10:07 | 48 Hour Post Anesthesia Eval ---
Post Anesthesia Evaluation Procedure: EGD Date of Evaluation: Jul 08, 2017 Time of Evaluation: 12:43 Blood Pressure Systolic: 98 0: 56 Pulse Rate: 60 Respiratory Rate: 16 Temperature (Fahrenheit): 97.4 O2 Sat by Pulse Oximetry: 100 Airway: patent Nausea: No Vomiting: No Pain Intensity: 1 Hydration Status: adequate Cardiopulmonary Status: Stable Mental Status/LOC: patient returned to baseline Follow-up Care/Observations: 0 Post-Anesthesia Complications: 0 Follow-up care needed: N/A Nathan Levin MD Jul 08, 2017 10:07
--- NOTE | 2017-07-08 10:13 | Endoscopy Procedure Note ---
Endoscopy Procedure Note Indication for Procedure: gib Procedures Performed: EGD Operative Findings/Diagnosis: gastric bypass Specimen: yes Pt Tolerated Procedure Well: Yes Estimated Blood Loss: none Anesthesiologist: qing Anesthesia: MAC Implant(s) used?: No 50 yrs or older w/o bx or poly: Not Applicable 10yrs. F/U not recommended: Not Applicable EMLLISSA SCOTT Jul 08, 2017 10:12
--- NOTE | 2017-07-08 11:06 | Cardiac Electrophysiology PN ---
Assessment/Plan Assessment/Plan 1. Paroxysmal atrial fibrillation. There is no prior history per her records. Today in Sinus 50-80. Had atrial fib in 70-80s last night 2. Troponin leak. Levels are flat likely due to demand ischemia in view of Hb as low as 3. Echo Nl EF Off aspirin for Hb 3. Off beta nola for bradycardia 3. Recurrent Bradycardia based on records from [facility] and here also. Asymptomatic. HR now 50s. Keep off any PANDYA or AVN nola. TFT showed no hypothyroidism 4. Dysphagia, status post PEG placement by Dr. Amado at [facility] 06/23/17. PEG replaced today. 5. Profound anemia with hemoglobin around 3. S/P 5 units PRBC. S/P EGD today. DW RN Subjective Subjective Had EGD and PEG replacement today by Dr Arana.Had atrial fib in 70-80s last night Nonverbal. RN at bedside. Objective Last 24 Hour Vital Signs Date Time Temp Pulse Resp B/P (MAP) Pulse Ox O2 Delivery O2 Flow Rate FiO2 07/08/17 10:50 97.8 55 19 103/62 99 Nasal Cannula 3.0 07/08/17 10:36 56 19 91/57 99 Nasal Cannula 3.0 07/08/17 10:31 60 20 81/50 100 Nasal Cannula 3.0 07/08/17 10:28 207.3 60 16 100 07/08/17 10:27 207.3 61 16 100 07/08/17 10:26 97.4 60 21 74/50 100 Simple Mask 6.0 07/08/17 08:00 98.4 61 32 162/76 93 Nasal Cannula 2.0 07/08/17 07:04 97 Nasal Cannula 2.0 32 07/08/17 07:04 Nasal Cannula 2.0 28 07/08/17 04:00 57 07/08/17 04:00 98.1 60 23 133/62 94 Nasal Cannula 2.0 07/08/17 03:33 61 07/08/17 00:00 99.1 62 23 144/68 98 Nasal Cannula 2.0 07/07/17 20:00 99.1 67 25 150/92 94 Nasal Cannula 2.0 07/07/17 20:00 68 07/07/17 19:30 Nasal Cannula 2.0 28 07/07/17 19:30 94 Nasal Cannula 2.0 28 07/07/17 16:00 99.1 70 26 126/52 97 Nasal Cannula 2.0 07/07/17 16:00 74 07/07/17 12:46 98.6 07/07/17 12:00 78 07/07/17 12:00 100.5 79 32 135/82 98 Nasal Cannula Intake and Output 07/07/17 07/08/17 19:00 07:00 Intake Total 838.708 ml 653 ml Balance 838.708 ml 653 ml IV Total 838.708 ml 653 ml # Voids 2 # Bowel Movements 3 1 Laboratory Tests Test 07/07/17 11:15 07/07/17 13:00 07/08/17 06:25 Ionized Calcium (Measured) 1.04 mmol/L (1.10-1.35) L Stool Occult Blood Positive (NEGATIVE) White Blood Count 4.8 K/UL (4.8-10.8) Red Blood Count 3.23 M/UL (4.20-5.40) L Hemoglobin 9.8 G/DL (12.0-16.0) L Hematocrit 29.5 % (37.0-47.0) L Mean Corpuscular Volume 91 FL (80-99) Mean Corpuscular Hemoglobin 30.4 PG (27.0-31.0) Mean Corpuscular Hemoglobin Concent 33.3 G/DL (32.0-36.0) Red Cell Distribution Width 17.9 % (11.6-14.8) H Platelet Count 173 K/UL (150-450) Mean Platelet Volume 6.9 FL (6.5-10.1) Neutrophils (%) (Auto) 82.7 % (45.0-75.0) H Lymphocytes (%) (Auto) 10.3 % (20.0-45.0) L Monocytes (%) (Auto) 6.3 % (1.0-10.0) Eosinophils (%) (Auto) 0.1 % (0.0-3.0) Basophils (%) (Auto) 0.6 % (0.0-2.0) Sodium Level 136 MMOL/L (136-145) Potassium Level 3.4 MMOL/L (3.5-5.1) L Chloride Level 104 MMOL/L (98-107) Carbon Dioxide Level 25 MMOL/L (21-32) Anion Gap 7 mmol/L (5-15) Blood Urea Nitrogen 8 mg/dL (7-18) Creatinine 0.5 MG/DL (0.55-1.30) L Estimat Glomerular Filtration Rate mL/min (>60) Glucose Level 103 MG/DL (74-106) Calcium Level 7.8 MG/DL (8.5-10.1) L Magnesium Level 1.3 MG/DL (1.8-2.4) L Total Bilirubin 0.4 MG/DL (0.2-1.0) Aspartate Amino Transf (AST/SGOT) 31 U/L (15-37) Alanine Aminotransferase (ALT/SGPT) 27 U/L (12-78) Alkaline Phosphatase 42 U/L (46-116) L Total Protein 5.1 G/DL (6.4-8.2) L Albumin 1.6 G/DL (3.4-5.0) L Globulin 3.5 g/dL Albumin/Globulin Ratio 0.5 (1.0-2.7) L Microbiology Date/Time Source Procedure Growth Status 07/06/17 17:30 Blood Blood Culture - Preliminary Resulted 07/06/17 17:30 Blood Blood Culture - Preliminary NO GROWTH AFTER 24 HOURS Resulted 07/06/17 15:25 Blood Blood Culture - Preliminary NO GROWTH AFTER 24 HOURS Resulted 07/06/17 15:00 Blood Blood Culture - Preliminary NO GROWTH AFTER 24 HOURS Resulted 07/05/17 16:10 Blood Blood Culture - Preliminary Staphylococcus Sp Coag Neg Resulted 07/05/17 16:10 Blood Blood Culture - Preliminary NO GROWTH AFTER 48 HOURS Resulted Objective HEAD AND NECK: No JVD. LUNGS: Decreased breath sounds. CARDIOVASCULAR: Bradycardic S1 and S2 with no gallop. ABDOMEN: Status post G-tube. EXTREMITIES: No pitting edema. GEOFFREY AGUERO Jul 08, 2017 11:06
--- NOTE | 2017-07-08 13:50 | Wound Care Consultation ---
Wound Assessment Wound Assessment : Wound Present on Admission: Yes New Wound: No Status Change of Wound: No Wound Location Body Site Modif: mid Wound Location Body Site: sacral Wound Type: pressure ulcer Shelia Test: Does not Shelia Pressure Ulcer Stage: III Wound Thickness: Full Thickness Wound Length: 1.5 Wound Width: 1.5 Wound Depth: 0.3 Percent of Wound [place]/Red: 100 Wound Drainage Description: Serosanguineous Wound Drainage Amount: Scant Wound Drainage Odor: None/Absent Tissue Surrounding Wound: Macerated Wound General Appearance: Reddened, Draining Wound Comment #1 Mid Sacral stage III pressure ulcer. Reassessment done no deterioration noted. maceration noted on the surrounding skin. Will cont same wound care order and recommendation below. Recommendation -Local wound care per protocol -Keep clean and dry -Turn and reposition -Offload both heels -Heel protector on both heels -Optimize nutrition -Low air loss mattress -Assess f/u accordingly for any changes LOKESH HARRIS RN Jul 08, 2017 13:50
--- NOTE | 2017-07-08 14:49 | Infectious Diseases Prog Note ---
Assessment/Plan Problems: (1) HCAP (healthcare-associated pneumonia) Assessment & Plan: with worsening bilateral interstitial infiltrates, continue vancomycin and cefepime empiric coverage for 10 days .monitor CXR (2) Septic shock Assessment & Plan: with coag negative staph , source? suspect skin wound . repeated blood culture is still positive for coag negative staph , continue rifampin and vancomycin for four weeks , await final repeated blood culture . (3) Hypotension (arterial) Assessment & Plan: improving , suspect due to sepsis and anemia , continue blood pressure support and antibiotics (4) Upper gastrointestinal bleed Assessment & Plan: S/P EGD with no evidence of ulcers or source of bleeding , monitor H/H, transfuse as needed , GI is following (5) Severe anemia Assessment & Plan: suspect due to GI blood loss , monitor H/H, transfuse as needed (6) Fever Assessment & Plan: due to pneumonia , continue wide spectrum antibiotic empiric coverage , and tylenol Subjective ROS Limited/Unobtainable: Yes Allergies: Coded Allergies: No Known Allergies (Unverified , 06/30/17) Subjective she was comfortable, lying in bed, just had EGD procedure done , nonverbal , dosen't follow commands , no fever or chills, no cough or SOB . Objective Vital Signs Last 24 Hour Vital Signs Date Time Temp Pulse Resp B/P (MAP) Pulse Ox O2 Delivery O2 Flow Rate FiO2 07/08/17 12:00 97.3 64 31 153/77 Nasal Cannula 2.0 07/08/17 12:00 62 07/08/17 10:50 97.8 55 19 103/62 99 Nasal Cannula 3.0 07/08/17 10:36 56 19 91/57 99 Nasal Cannula 3.0 07/08/17 10:31 60 20 81/50 100 Nasal Cannula 3.0 07/08/17 10:28 207.3 60 16 100 07/08/17 10:27 207.3 61 16 100 07/08/17 10:26 97.4 60 21 74/50 100 Simple Mask 6.0 07/08/17 08:00 69 07/08/17 08:00 98.4 61 32 162/76 93 Nasal Cannula 2.0 07/08/17 07:04 97 Nasal Cannula 2.0 32 07/08/17 07:04 Nasal Cannula 2.0 28 07/08/17 04:00 57 07/08/17 04:00 98.1 60 23 133/62 94 Nasal Cannula 2.0 07/08/17 03:33 61 07/08/17 00:00 99.1 62 23 144/68 98 Nasal Cannula 2.0 07/07/17 20:00 99.1 67 25 150/92 94 Nasal Cannula 2.0 07/07/17 20:00 68 07/07/17 19:30 Nasal Cannula 2.0 28 07/07/17 19:30 94 Nasal Cannula 2.0 28 07/07/17 16:00 99.1 70 26 126/52 97 Nasal Cannula 2.0 07/07/17 16:00 74 Height (Feet): 5 Height (Inches): 5.00 Weight (Pounds): 110 General Appearance: WD/WN, no acute distress HEENT: normocephalic, atraumatic, anicteric, mucous membranes moist, PERRL Respiratory/Chest: chest wall non-tender, no respiratory distress, no accessory muscle use, decreased breath sounds, expiratory wheezing Cardiovascular: normal peripheral pulses, normal rate, regular rhythm, no gallop/murmur, no JVD Abdomen: normal bowel sounds, soft, non tender, no organomegaly, non distended , no mass, no scars, other - PEG tube site is ok Extremities: no cyanosis, no clubbing Skin: no rash, no lesions, ulcers Neurologic/Psychiatric: unresponsiveness Microbiology Date/Time Source Procedure Growth Status 07/06/17 17:30 Blood Blood Culture - Preliminary Resulted 07/06/17 17:30 Blood Blood Culture - Preliminary NO GROWTH AFTER 24 HOURS Resulted 07/06/17 15:25 Blood Blood Culture - Preliminary NO GROWTH AFTER 24 HOURS Resulted 07/06/17 15:00 Blood Blood Culture - Preliminary NO GROWTH AFTER 24 HOURS Resulted 07/05/17 16:10 Blood Blood Culture - Preliminary Staphylococcus Sp Coag Neg Resulted 07/05/17 16:10 Blood Blood Culture - Preliminary NO GROWTH AFTER 48 HOURS Resulted Laboratory Tests Test 07/08/17 06:25 White Blood Count 4.8 K/UL (4.8-10.8) Red Blood Count 3.23 M/UL (4.20-5.40) L Hemoglobin 9.8 G/DL (12.0-16.0) L Hematocrit 29.5 % (37.0-47.0) L Mean Corpuscular Volume 91 FL (80-99) Mean Corpuscular Hemoglobin 30.4 PG (27.0-31.0) Mean Corpuscular Hemoglobin Concent 33.3 G/DL (32.0-36.0) Red Cell Distribution Width 17.9 % (11.6-14.8) H Platelet Count 173 K/UL (150-450) Mean Platelet Volume 6.9 FL (6.5-10.1) Neutrophils (%) (Auto) 82.7 % (45.0-75.0) H Lymphocytes (%) (Auto) 10.3 % (20.0-45.0) L Monocytes (%) (Auto) 6.3 % (1.0-10.0) Eosinophils (%) (Auto) 0.1 % (0.0-3.0) Basophils (%) (Auto) 0.6 % (0.0-2.0) Sodium Level 136 MMOL/L (136-145) Potassium Level 3.4 MMOL/L (3.5-5.1) L Chloride Level 104 MMOL/L (98-107) Carbon Dioxide Level 25 MMOL/L (21-32) Anion Gap 7 mmol/L (5-15) Blood Urea Nitrogen 8 mg/dL (7-18) Creatinine 0.5 MG/DL (0.55-1.30) L Estimat Glomerular Filtration Rate mL/min (>60) Glucose Level 103 MG/DL (74-106) Calcium Level 7.8 MG/DL (8.5-10.1) L Magnesium Level 1.3 MG/DL (1.8-2.4) L Total Bilirubin 0.4 MG/DL (0.2-1.0) Aspartate Amino Transf (AST/SGOT) 31 U/L (15-37) Alanine Aminotransferase (ALT/SGPT) 27 U/L (12-78) Alkaline Phosphatase 42 U/L (46-116) L Total Protein 5.1 G/DL (6.4-8.2) L Albumin 1.6 G/DL (3.4-5.0) L Globulin 3.5 g/dL Albumin/Globulin Ratio 0.5 (1.0-2.7) L Current Medications Medications (Trade) Dose Ordered Sig/Brianna Route PRN Reason Start Time Stop Time Status Last Admin Dose Admin Acetaminophen (Tylenol) 650 mg Q4H PRN RECTAL Mild Pain/Temp > 100.5 07/07/17 12:15 08/06/17 12:14 07/07/17 12:16 Acetaminophen (Tylenol) 650 mg Q6H PRN ORAL Mild Pain/Temp > 100.5 07/06/17 11:45 08/05/17 11:44 07/06/17 11:46 Acetaminophen/ Hydrocodone Bitart (Kemp 5/325) 1 tab Q1H PRN ORAL Mild Pain (Pain Scale 1-3) 07/08/17 10:00 07/08/17 18:00 Acetaminophen/ Hydrocodone Bitart (Kemp 7.5/325) 1 tab Q1H PRN ORAL Moderate Pain (Pain Scale 4-6) 07/08/17 10:00 07/08/17 18:00 Al Hydroxide/Mg Hydroxide (Mylanta) 15 ml Q1H PRN ORAL gi upset 07/08/17 10:00 07/08/17 18:00 Atropine Sulfate (Atropine) 0.5 mg Q5M PRN IV HR <40 07/08/17 10:00 07/08/17 18:00 Cefepime HCl 2 gm/ Sodium Chloride 55 ml @ 110 mls/hr DAILY@1730 IVPB 07/06/17 17:30 07/13/17 17:29 07/07/17 16:28 Chlorhexidine Gluconate (Karime-Hex 2%) 1 applic DAILY@2000 TOPIC 07/07/17 20:00 08/06/17 19:59 07/07/17 21:25 Dextrose/Sodium Chloride 1,000 ml @ 60 mls/hr [id number] IV 07/02/17 12:45 07/30/17 12:44 07/08/17 02:39 Diphenhydramine HCl (Benadryl) 25 mg Q15M PRN IVP Itching 07/08/17 10:00 07/08/17 18:00 Fentanyl Citrate (Sublimaze 100 mcg/2 mL) 25 mcg Q10M PRN IV Moderate Pain (Pain Scale 4-6) 07/08/17 10:00 07/08/17 18:00 Hydralazine HCl (Apresoline) 5 mg Q30M PRN IV SBP>160 / DBP>90 07/08/17 10:00 07/08/17 18:00 Hydromorphone HCl (Dilaudid) 0.5 mg Q15M PRN IVP Severe Pain (Pain Scale 7-10) 07/08/17 10:00 07/08/17 18:00 Ketorolac Tromethamine (Toradol 30mg) 15 mg Q1H PRN IV Moderate Breakthru Pain (5-7) 07/08/17 10:00 07/08/17 18:00 Ketorolac Tromethamine (Toradol) 60 mg Q1H PRN IV Severe Breakthru Pain (>7) 07/08/17 10:00 07/08/17 18:00 Labetalol HCl (Normodyne) 5 mg Q10M PRN IV SBP>160 / DBP>90 07/08/17 10:00 07/08/17 18:00 Lorazepam (Ativan 2mg/ml 1ml) 1 mg Q15M PRN IV For Anxiety 07/08/17 10:00 07/08/17 18:00 Midazolam HCl (Versed 2mg/2ml vial) 1 mg Q15M PRN IVP For Anxiety 07/08/17 10:00 07/08/17 18:00 Ondansetron HCl (Zofran) 4 mg Q1H PRN IVP Nausea & Vomiting 07/08/17 10:00 07/08/17 18:00 Oxycodone/ Acetaminophen (Percocet 5-325) 1 tab Q1H PRN ORAL Severe Pain (Pain Scale 7-10) 07/08/17 10:00 07/08/17 18:00 Pantoprazole (Protonix) 40 mg BIAC ORAL 07/08/17 16:30 08/07/17 16:29 Pantoprazole (Protonix) 40 mg EVERY 12 HOURS IVP 07/02/17 21:00 07/31/17 09:59 Future Hold 07/08/17 08:58 Rifampin (Rifadin) 300 mg EVERY 12 HOURS ORAL 07/07/17 21:00 08/06/17 20:59 Vancomycin HCl (Vanco rx to dose) 1 ea DAILY PRN MISC Per rx protocol 07/03/17 14:15 08/02/17 14:14 Vancomycin HCl 1 gm/Dextrose 275 ml @ 183.708 mls/hr Q24H IVPB 07/07/17 17:00 07/12/17 16:59 07/07/17 16:32 Godwin Weiss M.D. Jul 08, 2017 14:49
--- NOTE | 2017-07-08 15:14 | Diagnostic Imaging Report ---
Indication: Abdominal pain Comparison: None Single view of the abdomen obtained Findings: Contrast demonstrated in the stomach. Multiple surgical clips in the upper abdomen noted. Bowel gas pattern is nonspecific. Infiltrates noted within the lungs. Heart is enlarged. IMPRESSION: No acute findings appreciated
--- NOTE | 2017-07-08 17:35 | Nephrology Progress Note ---
Assessment/Plan Problem List: (1) Dysphagia (2) PEG (percutaneous endoscopic gastrostomy) status (3) Severe anemia (4) Dehydration (5) GI bleed (6) Hypotension (arterial) (7) Upper gastrointestinal bleed (8) Bradycardia (9) Acute blood loss anemia (10) Severe malnutrition (11) Troponin level elevated (12) Fever Plan Continue Current treatment plan Monitor temp Tylenol - rectal Anemia worsening, s/p transfusion Monitor H&H, transfuse PRN Monitor lytes and correct prn Continue daily PPI G-tube feeding per GI GI, ID, cardio, and Hematology following Abx per ID AM labs Subjective ROS Limited/Unobtainable: Yes Subjective In bed, on O2 via nasal cannula, s/p G-tube replacement, non verbal, does not follow commands Objective Objective Last 24 Hour Vital Signs Date Time Temp Pulse Resp B/P (MAP) Pulse Ox O2 Delivery O2 Flow Rate FiO2 07/08/17 16:00 59 07/08/17 12:00 97.3 64 31 153/77 Nasal Cannula 2.0 07/08/17 12:00 62 07/08/17 10:50 97.8 55 19 103/62 99 Nasal Cannula 3.0 07/08/17 10:36 56 19 91/57 99 Nasal Cannula 3.0 07/08/17 10:31 60 20 81/50 100 Nasal Cannula 3.0 07/08/17 10:28 207.3 60 16 100 07/08/17 10:27 207.3 61 16 100 07/08/17 10:26 97.4 60 21 74/50 100 Simple Mask 6.0 07/08/17 08:00 69 07/08/17 08:00 98.4 61 32 162/76 93 Nasal Cannula 2.0 07/08/17 07:04 97 Nasal Cannula 2.0 32 07/08/17 07:04 Nasal Cannula 2.0 28 07/08/17 04:00 57 07/08/17 04:00 98.1 60 23 133/62 94 Nasal Cannula 2.0 07/08/17 03:33 61 07/08/17 00:00 99.1 62 23 144/68 98 Nasal Cannula 2.0 07/07/17 20:00 99.1 67 25 150/92 94 Nasal Cannula 2.0 07/07/17 20:00 68 07/07/17 19:30 Nasal Cannula 2.0 28 07/07/17 19:30 94 Nasal Cannula 2.0 28 Intake and Output 07/07/17 07/08/17 19:00 07:00 Intake Total 838.708 ml 653 ml Balance 838.708 ml 653 ml IV Total 838.708 ml 653 ml # Voids 2 # Bowel Movements 3 1 Laboratory Tests 07/08/17 06:25: White Blood Count 4.8, Red Blood Count 3.23L, Hemoglobin 9.8L, Hematocrit 29.5L , Mean Corpuscular Volume 91, Mean Corpuscular Hemoglobin 30.4, Mean Corpuscular Hemoglobin Concent 33.3, Red Cell Distribution Width 17.9H, Platelet Count 173, Mean Platelet Volume 6.9, Neutrophils (%) (Auto) 82.7H, Lymphocytes (%) (Auto) 10.3L, Monocytes (%) (Auto) 6.3, Eosinophils (%) (Auto) 0.1, Basophils (%) (Auto) 0.6, Sodium Level 136, Potassium Level 3.4L, Chloride Level 104, Carbon Dioxide Level 25, Anion Gap 7, Blood Urea Nitrogen 8, Creatinine 0.5L, Estimat Glomerular Filtration Rate , Glucose Level 103, Calcium Level 7.8L, Magnesium Level 1.3L, Total Bilirubin 0.4, Aspartate Amino Transf (AST/SGOT) 31, Alanine Aminotransferase (ALT/SGPT) 27, Alkaline Phosphatase 42L, Total Protein 5.1L, Albumin 1.6L, Globulin 3.5, Albumin/ Globulin Ratio 0.5L Height (Feet): 5 Height (Inches): 5.00 Weight (Pounds): 110 General Appearance: no apparent distress, confused EENT: normal ENT inspection Neck: normal alignment Cardiovascular: normal rate Respiratory/Chest: decreased breath sounds Abdomen: soft, other - PEG tube noted Extremities: non-tender Neurologic: motor weakness Leyla Jordan N.P. Jul 08, 2017 17:35
[2017-07-08] MEDS: Cefepime HCl 2 GM in NS 55 ML IVPB SCH (18:27)
[2017-07-08] MEDS: Vancomycin 1gm/D5W 275ml IVPB SCH ×2 (18:28)
--- NOTE | 2017-07-08 20:30 | Procedure Note ---
DATE OF PROCEDURE: 07/08/2017 SURGEON: Darien Arana M.D. PROCEDURE: Upper endoscopy with biopsy. ANESTHESIOLOGIST: Nathan Levin M.D. INSTRUMENT: Olympus adult flexible upper endoscope. INDICATION: GI bleeding. REASON FOR PROCEDURE: The procedure, risks, benefits, and possible consequences, including hemorrhage, aspiration, perforation and infection, and alternative treatments, were explained to the patient/legal guardian by Dr. Darien Arana and the patient/legal guardian understood and accepted these risks. DESCRIPTION OF PROCEDURE: After informed consent was obtained and the patient was adequately sedated, Olympus upper endoscope was advanced from the mouth into the esophagus, then subsequently into the gastric pouch and then into the small intestine. The patient had evidence of gastric bypass surgery. There is a very small gastric pouch without any obvious bleeding. Random biopsy from the gastric pouch was obtained to rule out H. pylori infection. No evidence of any esophagitis, any anastomotic ulceration, or any active bleeding at this time. The patient had a Sosa started at the J-tube site. We did not know that the patient had a gastric bypass. Family thought this tube is extended into stomach. I changed it to an 18-T[place] balloon type G-tube because the Sosa was leaking and was broken and inflated with only 5 mL of the balloon. We are going to order KUB to locate the tip of this tube and make sure it is in the small intestine. SUMMARY OF FINDINGS: 1. Gastric bypass. 2. Small gastric polyps without any obvious bleeding. 3. Status post change of the J-tube. RECOMMENDATIONS: 1. Ordered a KUB. If this tube is in the right place, we are going to start feeding. The patient's anemia at this time or GI bleed is not explained by any upper GI bleeding or gastric bleeding at this time. We will monitor hemoglobin and hematocrit, and transfuse as needed. 2. Given the patient's condition, bed-bounded with contractures, we tried not to do a colonoscopy unless this is the cause of medical emergency. Darien Arana M.D. DR: DENNISE JOB#: [id number] CC:
[2017-07-08] MEDS: Dyna-Hex 2% Top Sol 2oz TOPIC SCH (20:36)
[2017-07-09] VITALS: BP 145/74
--- NOTE | 2017-07-09 00:04 | General Progress Note ---
Assessment/Plan Assessment/Plan #. Anemia due to upper gastrointestinal bleed. --> Anemia workup reviewed. --> Hemoglobin goal is above 7. --> S/P PRBC, hgb now >10 --> Monitor closely. --> ++Occult blood. Consult GI services. #. Anemia of iron deficiency. --> Monitor closely. --> Anemia workup reviewed. --> Blood transfusion not required unless symptomatic or hgb <7 #. Failure to thrive, status post percutaneous endoscopic gastrostomy tube. --> monitor #. Dehydration. #. Upper gastrointestinal bleed. --> S/P PRBC --> ++Occult blood --> Monitor closely. Subjective Date patient seen: Jul 08, 2017 Constitutional: Denies: no symptoms, chills, diaphoresis, fever, malaise, weakness, other HEENT: Denies: no symptoms, eye pain, blurred vision, tearing, double vision, ear pain, ear discharge, nose pain, nose congestion, throat pain, throat swelling, mouth pain, mouth swelling, other Cardiovascular: Denies: no symptoms, chest pain, edema, irregular heart rate, lightheadedness, palpitations, syncope, other Respiratory: Denies: no symptoms, cough, orthopnea, shortness of breath, SOB with excertion, SOB at rest, sputum, stridor, wheezing, other Gastrointestinal/Abdominal: Denies: no symptoms, abdomen distended, abdominal pain, black stools, tarry stools, blood in stool, constipated, diarrhea, difficulty swallowing, nausea, poor appetite, poor fluid intake, rectal bleeding , vomiting, other Genitourinary: Denies: no symptoms, burning, discharge, frequency, flank pain, hematuria, incontinence, pain, urgency, other Allergies: Coded Allergies: No Known Allergies (Unverified , 06/30/17) Subjective Hematochezia detected. Objective Last 24 Hour Vital Signs Date Time Temp Pulse Resp B/P (MAP) Pulse Ox O2 Delivery O2 Flow Rate FiO2 07/08/17 20:00 97.1 70 22 150/80 92 Nasal Cannula 2.0 07/08/17 20:00 62 07/08/17 16:00 98.2 61 24 155/86 92 Nasal Cannula 2.0 07/08/17 16:00 59 07/08/17 12:00 97.3 64 31 153/77 Nasal Cannula 2.0 07/08/17 12:00 62 07/08/17 10:50 97.8 55 19 103/62 99 Nasal Cannula 3.0 07/08/17 10:36 56 19 91/57 99 Nasal Cannula 3.0 07/08/17 10:31 60 20 81/50 100 Nasal Cannula 3.0 07/08/17 10:28 207.3 60 16 100 07/08/17 10:27 207.3 61 16 100 07/08/17 10:26 97.4 60 21 74/50 100 Simple Mask 6.0 07/08/17 08:00 69 07/08/17 08:00 98.4 61 32 162/76 93 Nasal Cannula 2.0 07/08/17 07:04 97 Nasal Cannula 2.0 32 07/08/17 07:04 Nasal Cannula 2.0 28 07/08/17 04:00 57 07/08/17 04:00 98.1 60 23 133/62 94 Nasal Cannula 2.0 07/08/17 03:33 61 Intake and Output 07/08/17 07/09/17 19:00 07:00 Intake Total 730 ml 455.000 ml Balance 730 ml 455.000 ml IV Total 730 ml 455.000 ml # Voids 2 # Bowel Movements 1 Laboratory Tests 07/08/17 06:25: White Blood Count 4.8, Red Blood Count 3.23L, Hemoglobin 9.8L, Hematocrit 29.5L , Mean Corpuscular Volume 91, Mean Corpuscular Hemoglobin 30.4, Mean Corpuscular Hemoglobin Concent 33.3, Red Cell Distribution Width 17.9H, Platelet Count 173, Mean Platelet Volume 6.9, Neutrophils (%) (Auto) 82.7H, Lymphocytes (%) (Auto) 10.3L, Monocytes (%) (Auto) 6.3, Eosinophils (%) (Auto) 0.1, Basophils (%) (Auto) 0.6, Sodium Level 136, Potassium Level 3.4L, Chloride Level 104, Carbon Dioxide Level 25, Anion Gap 7, Blood Urea Nitrogen 8, Creatinine 0.5L, Estimat Glomerular Filtration Rate , Glucose Level 103, Calcium Level 7.8L, Magnesium Level 1.3L, Total Bilirubin 0.4, Aspartate Amino Transf (AST/SGOT) 31, Alanine Aminotransferase (ALT/SGPT) 27, Alkaline Phosphatase 42L, Total Protein 5.1L, Albumin 1.6L, Globulin 3.5, Albumin/ Globulin Ratio 0.5L Height (Feet): 5 Height (Inches): 5.00 Weight (Pounds): 110 General Appearance: confused Cardiovascular: normal rate, regular rhythm Respiratory/Chest: decreased breath sounds Joaquim Dwyer Jul 09, 2017 00:04
[2017-07-09 04:00] VITALS: BP 155/84
[2017-07-09 07:14] LABS: BASOPHILS % (AUTO) 0.5 % (0.0-2.0); EOSINOPHILS % (AUTO) 0.4 % (0.0-3.0); HEMATOCRIT 33.4 % (37.0-47.0); HEMOGLOBIN 11.1 G/DL (12.0-16.0); MEAN CORPUSCULAR VOLUME 91 FL (80-99); MONOCYTES % (AUTO) 7.1 % (1.0-10.0); PLATELET COUNT 196 K/UL (150-450); RED BLOOD COUNT 3.68 M/UL (4.20-5.40); RED CELL DISTRIBUTION WIDTH 17.9 % (11.6-14.8); WHITE BLOOD COUNT 5.4 K/UL (4.8-10.8)
[2017-07-09 07:40] LABS: ANION GAP 9 mmol/L (5-15); BLOOD UREA NITROGEN 8 mg/dL (7-18); CARBON DIOXIDE 24 MMOL/L (21-32); CHLORIDE 102 MMOL/L (98-107); CREATININE 0.5 MG/DL (0.55-1.30); POTASSIUM 2.9 MMOL/L (3.5-5.1); SODIUM 135 MMOL/L (136-145)
[2017-07-09 08:00] VITALS: BP 160/76
--- NOTE | 2017-07-09 10:34 | Consultation ---
Consult Note Consult Note DATE OF CONSULTATION: 07/09/2017 PULMONARY CONSULTATION CONSULTING PHYSICIAN: Corey Moore M.D. REFERRING PHYSICIAN: Oscar Marshall M.D. REASON FOR CONSULTATION: Shortness of breath HISTORY OF PRESENT ILLNESS: The patient is an 82-year-old lady with history of advanced dementia and dysphagia, who underwent a gastrostomy tube placement about a week ago, who was brought to the emergency room as the blood pressure was noted to be low at the [facility] facility. The patient also is DNR. The patient is in a vegetative state and no information is available. The patient was noted to have hemoglobin of only 3 and she did receive 2 units of blood transfusion and hemoglobin improved to 5.8. There is no history of hematemesis or coffee ground. The patient's status was changed to Full Code. Overnight, there have been reports od shortness ofbreath and CXR has shown pulm edema. PAST MEDICAL HISTORY: 1. Hypertension. 2. History of dementia. 3. Hyperlipidemia. 4. Dysphagia, status post PEG placement. 5. Chronic obstructive pulmonary disease. PAST SURGICAL HISTORY: PEG placement. MEDICATIONS: Per reconciliation and include aspirin and ferrous sulfate. SOCIAL HISTORY: She lives in a nursing facility. Does not smoke or drink alcohol or use any illicit drugs. FAMILY HISTORY: Noncontributory. REVIEW OF SYSTEMS: Cannot be obtained. PHYSICAL EXAMINATION: VITAL SIGNS: Blood pressure is 147/69, pulse is 53, respirations 18, and she is afebrile. HEAD AND NECK: No JVD. LUNGS: Decreased breath sounds. CARDIOVASCULAR: Bradycardic S1 and S2 with no gallop. ABDOMEN: Status post G-tube. EXTREMITIES: No pitting edema. ASSESSMENT AND PLAN: 1. Atrial fibrillation based on EKG. 2. Profound anemia 3. History of bradycardia 4. Dysphagia, status post PEG placement 5. Pulmonary edema Agree with diuresis O2 Thank you very much, Dr. Marshall, for allowing me to participate in the care of this patient. Please do not hesitate to contact me for any questions regarding my evaluation. Corey Moore MD Jul 09, 2017 10:34
--- NOTE | 2017-07-09 10:57 | Diagnostic Imaging Report ---
Indication: NG tube injection and check Comparison: Earlier the same day Single view of the abdomen obtained Findings: Study was repeated with a reinjection of the gastrostomy tube. The study is better quality. The tip is situated in the distal part of the stomach near the pylorus. There is contrast material within the stomach and duodenum. IMPRESSION: No contrast leak identified. Suboptimal positioning of the gastrostomy tip which is in the distal part of the stomach near the pylorus.
[2017-07-09] MEDS ORDERED: Tubing IV Secondary IV ONE (10:58)
[2017-07-09] MEDS ORDERED: Sterile Water Irrig 1000ml IRRIG ONE (10:58)
[2017-07-09 11:24] VITALS: BP 113/71
--- NOTE | 2017-07-09 13:17 | Diagnostic Imaging Report ---
APPROVED REPORT CPT Code: 59742 Present Symptoms Comments: R/O DVT BILATERAL: Imaging reveals a patent deep venous system bilaterally. There is no evidence of thrombus within the femoral, popliteal or tibial segments. The greater saphenous veins are also within normal limits. Doppler indicates normal spontaneous flow within these segments.
--- NOTE | 2017-07-09 13:59 | Infectious Diseases Prog Note ---
Assessment/Plan Problems: (1) HCAP (healthcare-associated pneumonia) Assessment & Plan: with bilateral interstitial infiltrates, continue vancomycin and cefepime empiric coverage for 10 days .monitor CXR (2) Septic shock Assessment & Plan: with coag negative staph , source? suspect skin wound . repeated blood culture is still positive for coag negative staph , rifampin was added for synergy , will continue both rifampin vancomycin for four weeks , will repeat another set of blood culture today to confirm clearance. (3) Hypotension (arterial) Assessment & Plan: improving , suspect due to sepsis and anemia , continue blood pressure support and antibiotics (4) Upper gastrointestinal bleed Assessment & Plan: S/P EGD with no evidence of ulcers or source of bleeding , monitor H/H, transfuse as needed , GI is following (5) Severe anemia Assessment & Plan: suspect due to GI blood loss , monitor H/H, transfuse as needed (6) Fever Assessment & Plan: due to pneumonia , continue wide spectrum antibiotic empiric coverage , and tylenol Subjective ROS Limited/Unobtainable: Yes Allergies: Coded Allergies: No Known Allergies (Unverified , 06/30/17) Subjective she was comfortable, lying in bed, just had EGD procedure done , nonverbal , dosen't follow commands , no fever or chills, no cough or SOB . Objective Vital Signs Last 24 Hour Vital Signs Date Time Temp Pulse Resp B/P (MAP) Pulse Ox O2 Delivery O2 Flow Rate FiO2 07/09/17 11:24 98.6 68 32 113/71 95 Nasal Cannula 2.0 07/09/17 08:00 99.0 61 28 160/76 94 Nasal Cannula 2.0 07/09/17 08:00 60 07/09/17 04:00 98.0 58 22 155/84 95 Nasal Cannula 2.0 07/09/17 04:00 73 07/09/17 00:00 73 07/09/17 00:00 96.8 65 24 145/74 96 Nasal Cannula 2.0 07/08/17 20:00 97.1 70 22 150/80 92 Nasal Cannula 2.0 07/08/17 20:00 62 07/08/17 16:00 98.2 61 24 155/86 92 Nasal Cannula 2.0 07/08/17 16:00 59 Height (Feet): 5 Height (Inches): 5.00 Weight (Pounds): 110 General Appearance: WD/WN, no acute distress HEENT: normocephalic, atraumatic, anicteric, mucous membranes moist, PERRL Respiratory/Chest: chest wall non-tender, lungs clear, normal breath sounds, no respiratory distress, no accessory muscle use Cardiovascular: normal peripheral pulses, normal rate, regular rhythm, no gallop/murmur, no JVD Abdomen: normal bowel sounds, soft, non tender, no organomegaly, non distended , no mass, no scars Extremities: no cyanosis, no clubbing Skin: no rash, no lesions, ulcers Neurologic/Psychiatric: unresponsiveness Microbiology Date/Time Source Procedure Growth Status 07/06/17 17:30 Blood Blood Culture - Preliminary Gram Positive Cocci Resulted 07/06/17 17:30 Blood Blood Culture - Preliminary Resulted 07/06/17 15:25 Blood Blood Culture - Preliminary NO GROWTH AFTER 48 HOURS Resulted 07/06/17 15:00 Blood Blood Culture - Preliminary NO GROWTH AFTER 48 HOURS Resulted Laboratory Tests Test 07/09/17 06:15 White Blood Count 5.4 K/UL (4.8-10.8) Red Blood Count 3.68 M/UL (4.20-5.40) L Hemoglobin 11.1 G/DL (12.0-16.0) L Hematocrit 33.4 % (37.0-47.0) L Mean Corpuscular Volume 91 FL (80-99) Mean Corpuscular Hemoglobin 30.1 PG (27.0-31.0) Mean Corpuscular Hemoglobin Concent 33.2 G/DL (32.0-36.0) Red Cell Distribution Width 17.9 % (11.6-14.8) H Platelet Count 196 K/UL (150-450) Mean Platelet Volume 7.0 FL (6.5-10.1) Neutrophils (%) (Auto) 76.0 % (45.0-75.0) H Lymphocytes (%) (Auto) 16.0 % (20.0-45.0) L Monocytes (%) (Auto) 7.1 % (1.0-10.0) Eosinophils (%) (Auto) 0.4 % (0.0-3.0) Basophils (%) (Auto) 0.5 % (0.0-2.0) Sodium Level 135 MMOL/L (136-145) L Potassium Level 2.9 MMOL/L (3.5-5.1) L Chloride Level 102 MMOL/L (98-107) Carbon Dioxide Level 24 MMOL/L (21-32) Anion Gap 9 mmol/L (5-15) Blood Urea Nitrogen 8 mg/dL (7-18) Creatinine 0.5 MG/DL (0.55-1.30) L Estimat Glomerular Filtration Rate mL/min (>60) Glucose Level 108 MG/DL (74-106) H Calcium Level 8.0 MG/DL (8.5-10.1) L Current Medications Medications (Trade) Dose Ordered Sig/Brianna Route PRN Reason Start Time Stop Time Status Last Admin Dose Admin Acetaminophen (Tylenol) 650 mg Q4H PRN RECTAL Mild Pain/Temp > 100.5 07/07/17 12:15 08/06/17 12:14 07/07/17 12:16 Acetaminophen (Tylenol) 650 mg Q6H PRN ORAL Mild Pain/Temp > 100.5 07/06/17 11:45 08/05/17 11:44 07/06/17 11:46 Cefepime HCl 2 gm/ Sodium Chloride 55 ml @ 110 mls/hr DAILY@1730 IVPB 07/06/17 17:30 07/13/17 17:29 07/08/17 18:27 Chlorhexidine Gluconate (Karime-Hex 2%) 1 applic DAILY@2000 TOPIC 07/07/17 20:00 08/06/17 19:59 07/08/17 20:36 Lansoprazole (Prevacid) 30 mg BID GT 07/09/17 09:00 08/08/17 08:59 07/09/17 09:12 Pantoprazole (Protonix) 40 mg EVERY 12 HOURS IVP 07/02/17 21:00 07/31/17 09:59 Future Hold 07/08/17 08:58 Potassium Chloride 100 ml @ 50 mls/hr ONCE ONCE IVPB 07/09/17 12:00 07/09/17 13:59 07/09/17 12:03 Potassium Chloride 100 ml @ 50 mls/hr ONCE ONCE IVPB 07/09/17 14:00 07/09/17 15:59 Rifampin (Rifadin) 300 mg EVERY 12 HOURS ORAL 07/07/17 21:00 08/06/17 20:59 07/09/17 09:12 Vancomycin HCl (Vanco rx to dose) 1 ea DAILY PRN MISC Per rx protocol 07/03/17 14:15 08/02/17 14:14 Vancomycin HCl 1 gm/Dextrose 275 ml @ 183.708 mls/hr Q24H IVPB 07/07/17 17:00 07/12/17 16:59 07/08/17 18:28 Godwin Weiss M.D. Jul 09, 2017 13:59
--- NOTE | 2017-07-09 14:34 | GI Progress Note ---
Assessment/Plan Problems: (1) Hypovolemic shock ICD Codes: R57.1 - Hypovolemic shock SNOMED: 17537779 (2) Encephalopathy ICD Codes: G93.40 - Encephalopathy, unspecified SNOMED: 40015822 (3) Severe malnutrition ICD Codes: E43 - Unspecified severe protein-calorie malnutrition SNOMED: 09849878 (4) Acute blood loss anemia ICD Codes: D62 - Acute posthemorrhagic anemia SNOMED: 392389540 (5) Dehydration ICD Codes: E86.0 - Dehydration SNOMED: 37203066 (6) Dysphagia ICD Codes: R13.10 - Dysphagia, unspecified SNOMED: 72947828, 350467186 (7) GI bleed ICD Codes: K92.2 - Gastrointestinal hemorrhage, unspecified SNOMED: 97966519 (8) Severe anemia ICD Codes: D64.9 - Anemia, unspecified SNOMED: 116713614 (9) Upper gastrointestinal bleed ICD Codes: K92.2 - Gastrointestinal hemorrhage, unspecified SNOMED: 10106257 Status: stable Status Narrative Discussed with Dr. Arana. Assessment/Plan SUMMARY OF FINDINGS: 1. Gastric bypass. 2. Small gastric polyps without any obvious bleeding. 3. Status post change of the J-tube. RECOMMENDATIONS: okay to start GJ feedings per RD >> Do not check for residuals. 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&H, prn transfusions ppi fu labs Subjective Subjective limited Objective Last 24 Hour Vital Signs Date Time Temp Pulse Resp B/P (MAP) Pulse Ox O2 Delivery O2 Flow Rate FiO2 07/09/17 11:24 98.6 68 32 113/71 95 Nasal Cannula 2.0 07/09/17 08:00 99.0 61 28 160/76 94 Nasal Cannula 2.0 07/09/17 08:00 60 07/09/17 07:10 95 Nasal Cannula 2.0 32 07/09/17 07:10 Nasal Cannula 2.0 28 07/09/17 04:00 98.0 58 22 155/84 95 Nasal Cannula 2.0 07/09/17 04:00 73 07/09/17 00:00 73 07/09/17 00:00 96.8 65 24 145/74 96 Nasal Cannula 2.0 07/08/17 20:00 97.1 70 22 150/80 92 Nasal Cannula 2.0 07/08/17 20:00 62 2/12/18 16:00 98.2 61 24 155/86 92 Nasal Cannula 2.0 07/08/17 16:00 59 Intake and Output 07/08/17 07/09/17 19:00 07:00 Intake Total 730 ml 1235.000 ml Output Total 400 ml Balance 730 ml 835.000 ml Intake Free Water 90 ml IV Total 730 ml 815.000 ml Tube Feeding 330 ml Output Urine Total 400 ml # Voids 2 2 # Bowel Movements 1 Laboratory Tests Test 07/09/17 06:15 White Blood Count 5.4 K/UL (4.8-10.8) Red Blood Count 3.68 M/UL (4.20-5.40) L Hemoglobin 11.1 G/DL (12.0-16.0) L Hematocrit 33.4 % (37.0-47.0) L Mean Corpuscular Volume 91 FL (80-99) Mean Corpuscular Hemoglobin 30.1 PG (27.0-31.0) Mean Corpuscular Hemoglobin Concent 33.2 G/DL (32.0-36.0) Red Cell Distribution Width 17.9 % (11.6-14.8) H Platelet Count 196 K/UL (150-450) Mean Platelet Volume 7.0 FL (6.5-10.1) Neutrophils (%) (Auto) 76.0 % (45.0-75.0) H Lymphocytes (%) (Auto) 16.0 % (20.0-45.0) L Monocytes (%) (Auto) 7.1 % (1.0-10.0) Eosinophils (%) (Auto) 0.4 % (0.0-3.0) Basophils (%) (Auto) 0.5 % (0.0-2.0) Sodium Level 135 MMOL/L (136-145) L Potassium Level 2.9 MMOL/L (3.5-5.1) L Chloride Level 102 MMOL/L (98-107) Carbon Dioxide Level 24 MMOL/L (21-32) Anion Gap 9 mmol/L (5-15) Blood Urea Nitrogen 8 mg/dL (7-18) Creatinine 0.5 MG/DL (0.55-1.30) L Estimat Glomerular Filtration Rate mL/min (>60) Glucose Level 108 MG/DL (74-106) H Calcium Level 8.0 MG/DL (8.5-10.1) L Height (Feet): 5 Height (Inches): 5.00 Weight (Pounds): 110 General Appearance: no apparent distress, alert, thin Cardiovascular: normal rate Respiratory/Chest: normal breath sounds, other - 2LNC Abdominal Exam: other - GJ Objective no active s/sx of bleeding Amira Rios N.P. Jul 09, 2017 14:34
--- NOTE | 2017-07-09 15:29 | Cardiac Electrophysiology PN ---
Assessment/Plan Assessment/Plan 1. Paroxysmal atrial fibrillation. There is no prior history per her records. Today in Sinus 50-80. Had atrial fib in 70-80s last night 2. Troponin leak. Levels are flat likely due to demand ischemia in view of Hb as low as 3. Echo Nl EF Off aspirin for Hb 3. Off beta nola for bradycardia 3. Recurrent Bradycardia based on records from [facility] and here also. Asymptomatic. HR now 50s. Keep off any PANDYA or AVN nola. TFT showed no hypothyroidism 4. Dysphagia, status post J tube placement by Dr. Amado at [facility] 06/23/17. Status post change of the J-tube. 5. S/P Gastric bypass. 6. Profound anemia with hemoglobin around 3. S/P 5 units PRBC. EGD small gastric polyps without any obvious bleeding. KATE RN Subjective Subjective In SR overnight. RN at bedside.Non verbal Objective Last 24 Hour Vital Signs Date Time Temp Pulse Resp B/P (MAP) Pulse Ox O2 Delivery O2 Flow Rate FiO2 07/09/17 12:00 64 07/09/17 11:24 98.6 68 32 113/71 95 Nasal Cannula 2.0 07/09/17 08:00 99.0 61 28 160/76 94 Nasal Cannula 2.0 07/09/17 08:00 60 07/09/17 07:10 95 Nasal Cannula 2.0 32 07/09/17 07:10 Nasal Cannula 2.0 28 07/09/17 04:00 98.0 58 22 155/84 95 Nasal Cannula 2.0 07/09/17 04:00 73 07/09/17 00:00 73 07/09/17 00:00 96.8 65 24 145/74 96 Nasal Cannula 2.0 07/08/17 20:00 97.1 70 22 150/80 92 Nasal Cannula 2.0 07/08/17 20:00 62 07/08/17 16:00 98.2 61 24 155/86 92 Nasal Cannula 2.0 07/08/17 16:00 59 Intake and Output 07/08/17 07/09/17 19:00 07:00 Intake Total 730 ml 1235.000 ml Output Total 400 ml Balance 730 ml 835.000 ml Intake Free Water 90 ml IV Total 730 ml 815.000 ml Tube Feeding 330 ml Output Urine Total 400 ml # Voids 2 2 # Bowel Movements 1 Laboratory Tests Test 07/09/17 06:15 White Blood Count 5.4 K/UL (4.8-10.8) Red Blood Count 3.68 M/UL (4.20-5.40) L Hemoglobin 11.1 G/DL (12.0-16.0) L Hematocrit 33.4 % (37.0-47.0) L Mean Corpuscular Volume 91 FL (80-99) Mean Corpuscular Hemoglobin 30.1 PG (27.0-31.0) Mean Corpuscular Hemoglobin Concent 33.2 G/DL (32.0-36.0) Red Cell Distribution Width 17.9 % (11.6-14.8) H Platelet Count 196 K/UL (150-450) Mean Platelet Volume 7.0 FL (6.5-10.1) Neutrophils (%) (Auto) 76.0 % (45.0-75.0) H Lymphocytes (%) (Auto) 16.0 % (20.0-45.0) L Monocytes (%) (Auto) 7.1 % (1.0-10.0) Eosinophils (%) (Auto) 0.4 % (0.0-3.0) Basophils (%) (Auto) 0.5 % (0.0-2.0) Sodium Level 135 MMOL/L (136-145) L Potassium Level 2.9 MMOL/L (3.5-5.1) L Chloride Level 102 MMOL/L (98-107) Carbon Dioxide Level 24 MMOL/L (21-32) Anion Gap 9 mmol/L (5-15) Blood Urea Nitrogen 8 mg/dL (7-18) Creatinine 0.5 MG/DL (0.55-1.30) L Estimat Glomerular Filtration Rate mL/min (>60) Glucose Level 108 MG/DL (74-106) H Calcium Level 8.0 MG/DL (8.5-10.1) L Microbiology Date/Time Source Procedure Growth Status 07/06/17 17:30 Blood Blood Culture - Preliminary Gram Positive Cocci Resulted 07/06/17 17:30 Blood Blood Culture - Preliminary Resulted 07/06/17 15:25 Blood Blood Culture - Preliminary NO GROWTH AFTER 48 HOURS Resulted Objective HEAD AND NECK: No JVD. LUNGS: Decreased breath sounds. CARDIOVASCULAR: Bradycardic S1 and S2 with no gallop. ABDOMEN: Status post J-tube. EXTREMITIES: No pitting edema. GEOFFREY AGUERO Jul 09, 2017 15:29
[2017-07-09 15:59] VITALS: BP 134/84
[2017-07-09] MEDS: Cefepime HCl 2 GM in NS 55 ML IVPB SCH (16:58)
--- NOTE | 2017-07-09 17:06 | Cardiology Report ---
APPROVED REPORT EKG Measurement Heart [id number] poor quality tracing consider repeating ekg cannot exclude atrial fibrillation
[2017-07-09] MEDS: Vancomycin 1gm/D5W 275ml IVPB SCH ×2 (17:39)
[2017-07-09 19:43] VITALS: BP 147/99
[2017-07-09] MEDS: Dyna-Hex 2% Top Sol 2oz TOPIC SCH (21:40)
--- NOTE | 2017-07-09 23:57 | Nephrology Progress Note ---
Assessment/Plan Problem List: (1) Bradycardia (2) Septic shock (3) Severe malnutrition (4) Encephalopathy (5) Acute blood loss anemia (6) Hypovolemic shock (7) Severe anemia (8) GI bleed (9) Dysphagia (10) Dehydration (11) Upper gastrointestinal bleed Plan Bcx noted. ID following. abx per ID. D/c on hold for new bacteremia. Subjective Subjective no fever. Objective Objective Last 24 Hour Vital Signs Date Time Temp Pulse Resp B/P (MAP) Pulse Ox O2 Delivery O2 Flow Rate FiO2 07/09/17 19:43 98.2 62 27 147/99 98 Nasal Cannula 2.0 07/09/17 16:00 62 07/09/17 15:59 98.2 67 32 134/84 97 Nasal Cannula 2.0 07/09/17 12:00 64 07/09/17 11:24 98.6 68 32 113/71 95 Nasal Cannula 2.0 07/09/17 08:00 99.0 61 28 160/76 94 Nasal Cannula 2.0 07/09/17 08:00 60 07/09/17 07:10 95 Nasal Cannula 2.0 32 07/09/17 07:10 Nasal Cannula 2.0 28 07/09/17 04:00 98.0 58 22 155/84 95 Nasal Cannula 2.0 07/09/17 04:00 73 07/09/17 00:00 73 07/09/17 00:00 96.8 65 24 145/74 96 Nasal Cannula 2.0 Intake and Output 07/08/17 07/09/17 19:00 07:00 Intake Total 730 ml 1235.000 ml Output Total 400 ml Balance 730 ml 835.000 ml Intake Free Water 90 ml IV Total 730 ml 815.000 ml Tube Feeding 330 ml Output Urine Total 400 ml # Voids 2 2 # Bowel Movements 1 Laboratory Tests 07/09/17 06:15: White Blood Count 5.4, Red Blood Count 3.68L, Hemoglobin 11.1L, Hematocrit 33.4L , Mean Corpuscular Volume 91, Mean Corpuscular Hemoglobin 30.1, Mean Corpuscular Hemoglobin Concent 33.2, Red Cell Distribution Width 17.9H, Platelet Count 196, Mean Platelet Volume 7.0, Neutrophils (%) (Auto) 76.0H, Lymphocytes (%) (Auto) 16.0L, Monocytes (%) (Auto) 7.1, Eosinophils (%) (Auto) 0.4, Basophils (%) (Auto) 0.5, Sodium Level 135L, Potassium Level 2.9L, Chloride Level 102, Carbon Dioxide Level 24, Anion Gap 9, Blood Urea Nitrogen 8 , Creatinine 0.5L, Estimat Glomerular Filtration Rate , Glucose Level 108H, Calcium Level 8.0L 07/09/17 16:25: Vancomycin Level Trough 8.3 Height (Feet): 5 Height (Inches): 5.00 Weight (Pounds): 110 General Appearance: no apparent distress Cardiovascular: normal rate, regularly irregular Respiratory/Chest: decreased breath sounds Abdomen: non tender, soft JAY EVANGELISTA Jul 09, 2017 23:57
[2017-07-10] VITALS: BP 151/78
--- NOTE | 2017-07-10 03:25 | General Progress Note ---
Assessment/Plan Assessment/Plan #. Anemia due to upper gastrointestinal bleed. --> Anemia workup reviewed. --> Hemoglobin goal is above 7. --> Hemoglobin stable >11, does not need blood transfusion today --> Monitor closely. --> ++Occult blood. Consult GI services. #. Anemia of iron deficiency. --> Monitor closely. --> Anemia workup reviewed. --> Blood transfusion not required unless symptomatic or hgb <7 #. Failure to thrive, status post percutaneous endoscopic gastrostomy tube. --> monitor #. Dehydration. #. Upper gastrointestinal bleed. --> S/P NG tube placement. --> ++Occult blood --> Monitor closely. Subjective Date patient seen: Jul 09, 2017 Constitutional: Denies: no symptoms, chills, diaphoresis, fever, malaise, weakness, other HEENT: Denies: no symptoms, eye pain, blurred vision, tearing, double vision, ear pain, ear discharge, nose pain, nose congestion, throat pain, throat swelling, mouth pain, mouth swelling, other Cardiovascular: Denies: no symptoms, chest pain, edema, irregular heart rate, lightheadedness, palpitations, syncope, other Respiratory: Denies: no symptoms, cough, orthopnea, shortness of breath, SOB with excertion, SOB at rest, sputum, stridor, wheezing, other Gastrointestinal/Abdominal: Denies: no symptoms, abdomen distended, abdominal pain, black stools, tarry stools, blood in stool, constipated, diarrhea, difficulty swallowing, nausea, poor appetite, poor fluid intake, rectal bleeding , vomiting, other Genitourinary: Denies: no symptoms, burning, discharge, frequency, flank pain, hematuria, incontinence, pain, urgency, other Neurologic/Psychiatric: Denies: no symptoms, anxiety, depressed, emotional problems, headache, numbness, paresthesia, pre-existing deficit, seizure, tingling, tremors, weakness, other Hematologic/Lymphatic: Reports: anemia Allergies: Coded Allergies: No Known Allergies (Unverified , 06/30/17) Subjective S/P abd Xray. Occult blood positive. On pain control. Objective Last 24 Hour Vital Signs Date Time Temp Pulse Resp B/P (MAP) Pulse Ox O2 Delivery O2 Flow Rate FiO2 07/10/17 00:00 97.7 55 23 151/78 98 Nasal Cannula 2.0 07/09/17 23:24 57 07/09/17 19:43 98.2 62 27 147/99 98 Nasal Cannula 2.0 07/09/17 19:24 62 07/09/17 16:00 62 07/09/17 15:59 98.2 67 32 134/84 97 Nasal Cannula 2.0 07/09/17 12:00 64 07/09/17 11:24 98.6 68 32 113/71 95 Nasal Cannula 2.0 07/09/17 08:00 99.0 61 28 160/76 94 Nasal Cannula 2.0 07/09/17 08:00 60 07/09/17 07:10 95 Nasal Cannula 2.0 32 07/09/17 07:10 Nasal Cannula 2.0 28 07/09/17 04:00 98.0 58 22 155/84 95 Nasal Cannula 2.0 07/09/17 04:00 73 Intake and Output 07/09/17 07/10/17 19:00 07:00 Intake Total 1288.708 ml 91.292 ml Balance 1288.708 ml 91.292 ml Intake Free Water 230 ml IV Total 538.708 ml 91.292 ml Tube Feeding 520 ml # Voids 4 # Bowel Movements 1 Laboratory Tests 07/09/17 06:15: White Blood Count 5.4, Red Blood Count 3.68L, Hemoglobin 11.1L, Hematocrit 33.4L , Mean Corpuscular Volume 91, Mean Corpuscular Hemoglobin 30.1, Mean Corpuscular Hemoglobin Concent 33.2, Red Cell Distribution Width 17.9H, Platelet Count 196, Mean Platelet Volume 7.0, Neutrophils (%) (Auto) 76.0H, Lymphocytes (%) (Auto) 16.0L, Monocytes (%) (Auto) 7.1, Eosinophils (%) (Auto) 0.4, Basophils (%) (Auto) 0.5, Sodium Level 135L, Potassium Level 2.9L, Chloride Level 102, Carbon Dioxide Level 24, Anion Gap 9, Blood Urea Nitrogen 8 , Creatinine 0.5L, Estimat Glomerular Filtration Rate , Glucose Level 108H, Calcium Level 8.0L 07/09/17 16:25: Vancomycin Level Trough 8.3 Height (Feet): 5 Height (Inches): 5.00 Weight (Pounds): 110 General Appearance: confused Neck: normal alignment Cardiovascular: normal rate Respiratory/Chest: decreased breath sounds Joaquim Dwyer Jul 10, 2017 03:25
[2017-07-10 04:00] VITALS: BP 153/95
[2017-07-10] MEDS: Vancomycin 750mg/NS 250ml IVPB SCH ×2 (04:30→15:12)
[2017-07-10 07:07] LABS: ANION GAP 4 mmol/L (5-15); BLOOD UREA NITROGEN 9 mg/dL (7-18); CARBON DIOXIDE 31 MMOL/L (21-32); CHLORIDE 99 MMOL/L (98-107); CREATININE 0.4 MG/DL (0.55-1.30); SODIUM 134 MMOL/L (136-145)
[2017-07-10 08:00] VITALS: BP 159/70
[2017-07-10 08:40] LABS: HEMOGLOBIN 10.2 G/DL (12.0-16.0); MEAN CORPUSCULAR VOLUME 90 FL (80-99); RED BLOOD COUNT 3.44 M/UL (4.20-5.40); RED CELL DISTRIBUTION WIDTH 17.7 % (11.6-14.8); WHITE BLOOD COUNT 4.8 K/UL (4.8-10.8)
[2017-07-10 08:41] LABS: BASOPHILS % (AUTO) 0.4 % (0.0-2.0); EOSINOPHILS % (AUTO) 0.9 % (0.0-3.0); LYMPHOCYTES % (AUTO) 12.2 % (20.0-45.0); MONOCYTES % (AUTO) 7.4 % (1.0-10.0); NEUTROPHILS % (AUTO) 79.1 % (45.0-75.0); PLATELET COUNT 165 K/UL (150-450)
--- NOTE | 2017-07-10 09:39 | Pulmonology Progress Note ---
Assessment/Plan Assessment/Plan ASSESSMENT AND PLAN: 1. Atrial fibrillation based on EKG. 2. Profound anemia 3. History of bradycardia 4. Dysphagia, status post PEG placement 5. Pulmonary edema Agree with diuresis; no longer on diuretics today though O2 Subjective Interval Events: No new events Constitutional: Reports: no symptoms HEENT: Repors: no symptoms Respiratory: Reports: no symptoms Cardiovascular: Reports: no symptoms Gastrointestinal/Abdominal: Reports: no symptoms Genitourinary: Reports: no symptoms Allergies: Coded Allergies: No Known Allergies (Unverified , 06/30/17) Objective Last 24 Hour Vital Signs Date Time Temp Pulse Resp B/P (MAP) Pulse Ox O2 Delivery O2 Flow Rate FiO2 07/10/17 08:00 97.6 59 22 159/70 100 Nasal Cannula 2.0 07/10/17 08:00 59 07/10/17 04:00 97.3 55 21 153/95 98 Nasal Cannula 2.0 07/10/17 03:19 54 07/10/17 00:00 97.7 55 23 151/78 98 Nasal Cannula 2.0 07/09/17 23:24 57 07/09/17 19:43 98.2 62 27 147/99 98 Nasal Cannula 2.0 07/09/17 19:24 62 07/09/17 19:00 96 Nasal Cannula 2.0 28 07/09/17 19:00 Nasal Cannula 2.0 28 07/09/17 16:00 62 07/09/17 15:59 98.2 67 32 134/84 97 Nasal Cannula 2.0 07/09/17 12:00 64 07/09/17 11:24 98.6 68 32 113/71 95 Nasal Cannula 2.0 Intake and Output 07/09/17 07/10/17 19:00 07:00 Intake Total 1288.708 ml 1254.626 ml Balance 1288.708 ml 1254.626 ml Intake Free Water 230 ml 230 ml IV Total 538.708 ml 424.626 ml Tube Feeding 520 ml 600 ml # Voids 4 1 # Bowel Movements 1 General Appearance: no acute distress HEENT: normocephalic Respiratory/Chest: chest wall non-tender, lungs clear Cardiovascular: normal peripheral pulses, normal rate Abdomen: normal bowel sounds Laboratory Tests 07/09/17 16:25: Vancomycin Level Trough 8.3 07/10/17 05:30: Sodium Level 134L, Potassium Level 3.0L, Chloride Level 99, Carbon Dioxide Level 31, Anion Gap 4L, Blood Urea Nitrogen 9, Creatinine 0.4L, Estimat Glomerular Filtration Rate , Glucose Level 105, Calcium Level 8.0L 07/10/17 08:00: White Blood Count 4.8, Red Blood Count 3.44L, Hemoglobin 10.2L, Hematocrit 31.0L , Mean Corpuscular Volume 90, Mean Corpuscular Hemoglobin 29.5, Mean Corpuscular Hemoglobin Concent 32.8, Red Cell Distribution Width 17.7H, Platelet Count 165, Mean Platelet Volume 6.8, Neutrophils (%) (Auto) 79.1H, Lymphocytes (%) (Auto) 12.2L, Monocytes (%) (Auto) 7.4, Eosinophils (%) (Auto) 0.9, Basophils (%) (Auto) 0.4 Current Medications Medications (Trade) Dose Ordered Sig/Brianna Route PRN Reason Start Time Stop Time Status Last Admin Dose Admin Acetaminophen (Tylenol) 650 mg Q4H PRN RECTAL Mild Pain/Temp > 100.5 07/07/17 12:15 08/06/17 12:14 07/07/17 12:16 Acetaminophen (Tylenol) 650 mg Q6H PRN ORAL Mild Pain/Temp > 100.5 07/06/17 11:45 08/05/17 11:44 07/06/17 11:46 Cefepime HCl 2 gm/ Sodium Chloride 55 ml @ 110 mls/hr DAILY@1730 IVPB 07/06/17 17:30 07/13/17 17:29 07/09/17 16:58 Chlorhexidine Gluconate (Karime-Hex 2%) 1 applic DAILY@2000 TOPIC 07/07/17 20:00 08/06/17 19:59 07/09/17 21:40 Lansoprazole (Prevacid) 30 mg BID GT 07/09/17 09:00 08/08/17 08:59 07/10/17 08:42 Pantoprazole (Protonix) 40 mg EVERY 12 HOURS IVP 07/02/17 21:00 07/31/17 09:59 Future Hold 07/08/17 08:58 Rifampin (Rifadin) 300 mg EVERY 12 HOURS ORAL 07/07/17 21:00 08/06/17 20:59 2/14/18 08:42 Vancomycin HCl (Vanco rx to dose) 1 ea DAILY PRN MISC Per rx protocol 07/03/17 14:15 08/02/17 14:14 Vancomycin/Sodium Chloride 250 ml @ 166.667 mls/hr Q12HR@0400,1600 IVPB 07/10/17 04:00 07/15/17 03:59 07/10/17 04:30 Corey Moore MD Jul 10, 2017 09:39
--- NOTE | 2017-07-10 11:33 | GI Progress Note ---
Assessment/Plan Problems: (1) Hypovolemic shock ICD Codes: R57.1 - Hypovolemic shock SNOMED: 06748465 (2) Encephalopathy ICD Codes: G93.40 - Encephalopathy, unspecified SNOMED: 82112276 (3) Severe malnutrition ICD Codes: E43 - Unspecified severe protein-calorie malnutrition SNOMED: 99097096 (4) Acute blood loss anemia ICD Codes: D62 - Acute posthemorrhagic anemia SNOMED: 716323918 (5) Dehydration ICD Codes: E86.0 - Dehydration SNOMED: 67194087 (6) Dysphagia ICD Codes: R13.10 - Dysphagia, unspecified SNOMED: 57588397, 128364793 (7) GI bleed ICD Codes: K92.2 - Gastrointestinal hemorrhage, unspecified SNOMED: 22792473 (8) Severe anemia ICD Codes: D64.9 - Anemia, unspecified SNOMED: 149525790 (9) Upper gastrointestinal bleed ICD Codes: K92.2 - Gastrointestinal hemorrhage, unspecified SNOMED: 79265346 Status: unchanged Status Narrative Discussed with Dr. Arana. Assessment/Plan SUMMARY OF FINDINGS: 1. Gastric bypass. 2. Small gastric polyps without any obvious bleeding. 3. Status post change of the J-tube. RECOMMENDATIONS: okay to start GJ feedings per RD >> Do not check for residuals. defer colonoscopy unless emergent disease case manager H&H, prn transfusions ppi BID fu labs Subjective Subjective limited Objective Last 24 Hour Vital Signs Date Time Temp Pulse Resp B/P (MAP) Pulse Ox O2 Delivery O2 Flow Rate FiO2 07/10/17 09:54 100 Nasal Cannula 2.0 28 07/10/17 09:54 Nasal Cannula 2.0 28 07/10/17 08:00 97.6 59 22 159/70 100 Nasal Cannula 2.0 07/10/17 08:00 59 07/10/17 04:00 97.3 55 21 153/95 98 Nasal Cannula 2.0 07/10/17 03:19 54 07/10/17 00:00 97.7 55 23 151/78 98 Nasal Cannula 2.0 07/09/17 23:24 57 07/09/17 19:43 98.2 62 27 147/99 98 Nasal Cannula 2.0 07/09/17 19:24 62 07/09/17 19:00 96 Nasal Cannula 2.0 28 07/09/17 19:00 Nasal Cannula 2.0 28 07/09/17 16:00 62 07/09/17 15:59 98.2 67 32 134/84 97 Nasal Cannula 2.0 07/09/17 12:00 64 Intake and Output 07/09/17 07/10/17 19:00 07:00 Intake Total 1288.708 ml 1254.626 ml Balance 1288.708 ml 1254.626 ml Intake Free Water 230 ml 230 ml IV Total 538.708 ml 424.626 ml Tube Feeding 520 ml 600 ml # Voids 4 1 # Bowel Movements 1 Laboratory Tests Test 07/09/17 16:25 07/10/17 05:30 07/10/17 08:00 Vancomycin Level Trough 8.3 ug/mL (5.0-12.0) Sodium Level 134 MMOL/L (136-145) L Potassium Level 3.0 MMOL/L (3.5-5.1) L Chloride Level 99 MMOL/L (98-107) Carbon Dioxide Level 31 MMOL/L (21-32) Anion Gap 4 mmol/L (5-15) L Blood Urea Nitrogen 9 mg/dL (7-18) Creatinine 0.4 MG/DL (0.55-1.30) L Estimat Glomerular Filtration Rate mL/min (>60) Glucose Level 105 MG/DL (74-106) Calcium Level 8.0 MG/DL (8.5-10.1) L White Blood Count 4.8 K/UL (4.8-10.8) Red Blood Count 3.44 M/UL (4.20-5.40) L Hemoglobin 10.2 G/DL (12.0-16.0) L Hematocrit 31.0 % (37.0-47.0) L Mean Corpuscular Volume 90 FL (80-99) Mean Corpuscular Hemoglobin 29.5 PG (27.0-31.0) Mean Corpuscular Hemoglobin Concent 32.8 G/DL (32.0-36.0) Red Cell Distribution Width 17.7 % (11.6-14.8) H Platelet Count 165 K/UL (150-450) Mean Platelet Volume 6.8 FL (6.5-10.1) Neutrophils (%) (Auto) 79.1 % (45.0-75.0) H Lymphocytes (%) (Auto) 12.2 % (20.0-45.0) L Monocytes (%) (Auto) 7.4 % (1.0-10.0) Eosinophils (%) (Auto) 0.9 % (0.0-3.0) Basophils (%) (Auto) 0.4 % (0.0-2.0) Height (Feet): 5 Height (Inches): 5.00 Weight (Pounds): 110 General Appearance: no apparent distress, alert, thin Cardiovascular: normal rate Respiratory/Chest: other - 2LNC Abdominal Exam: other - GJ Objective dark tarry stools Amira Rios N.P. Jul 10, 2017 11:33
--- NOTE | 2017-07-10 11:42 | Diagnostic Imaging Report ---
Indication: Cough Comparison: 07/07/2017 A single view chest radiograph was obtained. Findings: Interstitial edema and prominent pulmonary vascularity and heart size and shape. There is a PICC line present with the tip projected over the SVC. There are surgical clips in the upper abdomen. Bones are osteopenic. IMPRESSION: Interstitial pulmonary edema slightly worse compared to the prior study. Superimposed pneumonia not excluded.
[2017-07-10 12:00] VITALS: BP 161/99
--- NOTE | 2017-07-10 14:23 | Infectious Diseases Prog Note ---
Assessment/Plan Problems: (1) HCAP (healthcare-associated pneumonia) Assessment & Plan: with worsening bilateral interstitial infiltrates, continue vancomycin and cefepime empiric coverage for 10 days .monitor CXR (2) Septic shock Assessment & Plan: now with coag negative staph ,and enterococcus faecalis source? suspect skin wound . repeated blood culture is still positive for coag negative staph , and now for enterococcus faecalis, rifampin was added for synergy , will continue both rifampin and vancomycin to cover both organisms for four weeks starting from the clearance date , repeated blood culture on is pending to confirm clearance. (3) Hypotension (arterial) Assessment & Plan: improving , suspect due to sepsis and anemia , continue blood pressure support and antibiotics (4) Upper gastrointestinal bleed Assessment & Plan: S/P EGD with no evidence of ulcers or source of bleeding , monitor H/H, transfuse as needed , GI is following (5) Severe anemia Assessment & Plan: suspect due to GI blood loss , monitor H/H, transfuse as needed (6) Fever Assessment & Plan: due to pneumonia , continue wide spectrum antibiotic empiric coverage , and tylenol (7) Pulmonary edema Assessment & Plan: off IVF, and received lasix today , management as per primary team Subjective ROS Limited/Unobtainable: Yes Allergies: Coded Allergies: No Known Allergies (Unverified , 06/30/17) Subjective she was comfortable, lying in bed, nonverbal , had wheezing earlier , dosen't follow commands , no fever or chills, no cough or SOB . Objective Vital Signs Last 24 Hour Vital Signs Date Time Temp Pulse Resp B/P (MAP) Pulse Ox O2 Delivery O2 Flow Rate FiO2 07/10/17 12:00 62 07/10/17 12:00 97.5 65 20 161/99 98 Nasal Cannula 2.0 07/10/17 09:54 100 Nasal Cannula 2.0 28 07/10/17 09:54 Nasal Cannula 2.0 28 07/10/17 08:00 97.6 59 22 159/70 100 Nasal Cannula 2.0 07/10/17 08:00 59 07/10/17 04:00 97.3 55 21 153/95 98 Nasal Cannula 2.0 07/10/17 03:19 54 07/10/17 00:00 97.7 55 23 151/78 98 Nasal Cannula 2.0 07/09/17 23:24 57 2/13/18 19:43 98.2 62 27 147/99 98 Nasal Cannula 2.0 07/09/17 19:24 62 07/09/17 19:00 96 Nasal Cannula 2.0 28 07/09/17 19:00 Nasal Cannula 2.0 28 07/09/17 16:00 62 07/09/17 15:59 98.2 67 32 134/84 97 Nasal Cannula 2.0 Height (Feet): 5 Height (Inches): 5.00 Weight (Pounds): 110 General Appearance: WD/WN, no acute distress HEENT: normocephalic, atraumatic, anicteric, mucous membranes moist Respiratory/Chest: chest wall non-tender, lungs clear, normal breath sounds, no respiratory distress, no accessory muscle use Cardiovascular: normal peripheral pulses, normal rate, regular rhythm, no gallop/murmur, no JVD Abdomen: normal bowel sounds, soft, non tender, no organomegaly, non distended , no mass, no scars Extremities: no cyanosis, no clubbing Skin: no rash, no lesions, no ulcers Musculoskeletal: normal muscle bulk Laboratory Tests Test 07/09/17 16:25 07/10/17 05:30 07/10/17 08:00 Vancomycin Level Trough 8.3 ug/mL (5.0-12.0) Sodium Level 134 MMOL/L (136-145) L Potassium Level 3.0 MMOL/L (3.5-5.1) L Chloride Level 99 MMOL/L (98-107) Carbon Dioxide Level 31 MMOL/L (21-32) Anion Gap 4 mmol/L (5-15) L Blood Urea Nitrogen 9 mg/dL (7-18) Creatinine 0.4 MG/DL (0.55-1.30) L Estimat Glomerular Filtration Rate mL/min (>60) Glucose Level 105 MG/DL (74-106) Calcium Level 8.0 MG/DL (8.5-10.1) L White Blood Count 4.8 K/UL (4.8-10.8) Red Blood Count 3.44 M/UL (4.20-5.40) L Hemoglobin 10.2 G/DL (12.0-16.0) L Hematocrit 31.0 % (37.0-47.0) L Mean Corpuscular Volume 90 FL (80-99) Mean Corpuscular Hemoglobin 29.5 PG (27.0-31.0) Mean Corpuscular Hemoglobin Concent 32.8 G/DL (32.0-36.0) Red Cell Distribution Width 17.7 % (11.6-14.8) H Platelet Count 165 K/UL (150-450) Mean Platelet Volume 6.8 FL (6.5-10.1) Neutrophils (%) (Auto) 79.1 % (45.0-75.0) H Lymphocytes (%) (Auto) 12.2 % (20.0-45.0) L Monocytes (%) (Auto) 7.4 % (1.0-10.0) Eosinophils (%) (Auto) 0.9 % (0.0-3.0) Basophils (%) (Auto) 0.4 % (0.0-2.0) Current Medications Medications (Trade) Dose Ordered Sig/Brianna Route PRN Reason Start Time Stop Time Status Last Admin Dose Admin Acetaminophen (Tylenol) 650 mg Q4H PRN RECTAL Mild Pain/Temp > 100.5 07/07/17 12:15 08/06/17 12:14 07/07/17 12:16 Acetaminophen (Tylenol) 650 mg Q6H PRN ORAL Mild Pain/Temp > 100.5 07/06/17 11:45 08/05/17 11:44 07/06/17 11:46 Cefepime HCl 2 gm/ Sodium Chloride 55 ml @ 110 mls/hr DAILY@1730 IVPB 07/06/17 17:30 07/13/17 17:29 07/09/17 16:58 Chlorhexidine Gluconate (Karime-Hex 2%) 1 applic DAILY@2000 TOPIC 07/07/17 20:00 08/06/17 19:59 07/09/17 21:40 Lansoprazole (Prevacid) 30 mg BID GT 07/09/17 09:00 08/08/17 08:59 07/10/17 08:42 Pantoprazole (Protonix) 40 mg EVERY 12 HOURS IVP 07/02/17 21:00 07/31/17 09:59 Future Hold 07/08/17 08:58 Rifampin (Rifadin) 300 mg EVERY 12 HOURS ORAL 07/07/17 21:00 08/06/17 20:59 2/14/18 08:42 Vancomycin HCl (Vanco rx to dose) 1 ea DAILY PRN MISC Per rx protocol 07/03/17 14:15 08/02/17 14:14 Vancomycin/Sodium Chloride 250 ml @ 166.667 mls/hr Q12HR@0400,1600 IVPB 07/10/17 04:00 07/15/17 03:59 07/10/17 04:30 Godwin Weiss M.D. Jul 10, 2017 14:23
--- NOTE | 2017-07-10 15:09 | Cardiac Electrophysiology PN ---
Assessment/Plan Assessment/Plan 1. Paroxysmal atrial fibrillation.Now in Sinus 50-80. 2. Troponin leak. Levels are flat likely due to demand ischemia in view of Hb as low as 3. Echo Nl EF Off aspirin for Hb 3. Off beta nola for bradycardia 3. Recurrent Bradycardia based on records from [facility] and here also. Asymptomatic. HR now 50s. Keep off any PANDYA or AVN nola. TFT showed no hypothyroidism 4. Dysphagia, status post J tube placement by Dr. Amado at [facility] 06/23/17. Status post change of the J-tube. 5. S/P Gastric bypass. 6. Profound anemia with hemoglobin around 3. S/P 5 units PRBC. EGD showed small gastric polyps without any obvious bleeding. KATE RN Subjective Subjective In SR overnight. Non verbal. No events. Mildly kan in 50s Objective Last 24 Hour Vital Signs Date Time Temp Pulse Resp B/P (MAP) Pulse Ox O2 Delivery O2 Flow Rate FiO2 07/10/17 12:00 62 07/10/17 12:00 97.5 65 20 161/99 98 Nasal Cannula 2.0 07/10/17 09:54 100 Nasal Cannula 2.0 28 07/10/17 09:54 Nasal Cannula 2.0 28 07/10/17 08:00 97.6 59 22 159/70 100 Nasal Cannula 2.0 07/10/17 08:00 59 07/10/17 04:00 97.3 55 21 153/95 98 Nasal Cannula 2.0 07/10/17 03:19 54 07/10/17 00:00 97.7 55 23 151/78 98 Nasal Cannula 2.0 07/09/17 23:24 57 07/09/17 19:43 98.2 62 27 147/99 98 Nasal Cannula 2.0 07/09/17 19:24 62 07/09/17 19:00 96 Nasal Cannula 2.0 28 07/09/17 19:00 Nasal Cannula 2.0 28 07/09/17 16:00 62 07/09/17 15:59 98.2 67 32 134/84 97 Nasal Cannula 2.0 Intake and Output 07/09/17 07/10/17 19:00 07:00 Intake Total 1288.708 ml 1254.626 ml Balance 1288.708 ml 1254.626 ml Intake Free Water 230 ml 230 ml IV Total 538.708 ml 424.626 ml Tube Feeding 520 ml 600 ml # Voids 4 1 # Bowel Movements 1 Laboratory Tests Test 07/09/17 16:25 07/10/17 05:30 07/10/17 08:00 Vancomycin Level Trough 8.3 ug/mL (5.0-12.0) Sodium Level 134 MMOL/L (136-145) L Potassium Level 3.0 MMOL/L (3.5-5.1) L Chloride Level 99 MMOL/L (98-107) Carbon Dioxide Level 31 MMOL/L (21-32) Anion Gap 4 mmol/L (5-15) L Blood Urea Nitrogen 9 mg/dL (7-18) Creatinine 0.4 MG/DL (0.55-1.30) L Estimat Glomerular Filtration Rate mL/min (>60) Glucose Level 105 MG/DL (74-106) Calcium Level 8.0 MG/DL (8.5-10.1) L White Blood Count 4.8 K/UL (4.8-10.8) Red Blood Count 3.44 M/UL (4.20-5.40) L Hemoglobin 10.2 G/DL (12.0-16.0) L Hematocrit 31.0 % (37.0-47.0) L Mean Corpuscular Volume 90 FL (80-99) Mean Corpuscular Hemoglobin 29.5 PG (27.0-31.0) Mean Corpuscular Hemoglobin Concent 32.8 G/DL (32.0-36.0) Red Cell Distribution Width 17.7 % (11.6-14.8) H Platelet Count 165 K/UL (150-450) Mean Platelet Volume 6.8 FL (6.5-10.1) Neutrophils (%) (Auto) 79.1 % (45.0-75.0) H Lymphocytes (%) (Auto) 12.2 % (20.0-45.0) L Monocytes (%) (Auto) 7.4 % (1.0-10.0) Eosinophils (%) (Auto) 0.9 % (0.0-3.0) Basophils (%) (Auto) 0.4 % (0.0-2.0) Objective HEAD AND NECK: No JVD. LUNGS: Clear CARDIOVASCULAR: Bradycardic S1 and S2 with no gallop. ABDOMEN: Status post J-tube. EXTREMITIES: No pitting edema. GEOFFREY AGUERO Jul 10, 2017 15:09
[2017-07-10 16:00] VITALS: BP 160/95
[2017-07-10 18:21] VITALS: BP 120/64
[2017-07-10] MEDS ORDERED: Tubing IV Secondary IV ONE (18:28)
[2017-07-10] MEDS ORDERED: Sterile Water Irrig 1000ml IRRIG ONE (18:28)
--- NOTE | 2017-07-10 23:00 | General Progress Note ---
Assessment/Plan Assessment/Plan #. Interstitial Pulmonary Edema --> On vancomycin. #. Anemia due to upper gastrointestinal bleed. --> Anemia workup reviewed. --> Hemoglobin goal is above 7. --> Hemoglobin stable >10, does not need blood transfusion today --> Monitor closely. --> ++Occult blood. Consult GI services. #. Anemia of iron deficiency. --> Monitor closely. --> Anemia workup reviewed. --> Blood transfusion not required unless symptomatic or hgb <7 #. Failure to thrive, status post percutaneous endoscopic gastrostomy tube. --> monitor #. Dehydration. #. Upper gastrointestinal bleed. --> S/P NG tube placement. --> ++Occult blood --> Monitor closely. Subjective Date patient seen: Jul 10, 2017 Constitutional: Denies: no symptoms, chills, diaphoresis, fever, malaise, weakness, other HEENT: Denies: no symptoms, eye pain, blurred vision, tearing, double vision, ear pain, ear discharge, nose pain, nose congestion, throat pain, throat swelling, mouth pain, mouth swelling, other Cardiovascular: Denies: no symptoms, chest pain, edema, irregular heart rate, lightheadedness, palpitations, syncope, other Respiratory: Denies: no symptoms, cough, orthopnea, shortness of breath, SOB with excertion, SOB at rest, sputum, stridor, wheezing, other Gastrointestinal/Abdominal: Denies: no symptoms, abdomen distended, abdominal pain, black stools, tarry stools, blood in stool, constipated, diarrhea, difficulty swallowing, nausea, poor appetite, poor fluid intake, rectal bleeding , vomiting, other Genitourinary: Denies: no symptoms, burning, discharge, frequency, flank pain, hematuria, incontinence, pain, urgency, other Hematologic/Lymphatic: Reports: anemia Allergies: Coded Allergies: No Known Allergies (Unverified , 06/30/17) Subjective Patient on antibiotics. No major events. Pending DC. Objective Last 24 Hour Vital Signs Date Time Temp Pulse Resp B/P (MAP) Pulse Ox O2 Delivery O2 Flow Rate FiO2 07/10/17 18:21 57 120/64 07/10/17 16:00 62 07/10/17 16:00 97.5 61 18 160/95 99 Nasal Cannula 2.0 07/10/17 12:00 62 2/14/18 12:00 97.5 65 20 161/99 98 Nasal Cannula 2.0 07/10/17 09:54 100 Nasal Cannula 2.0 28 07/10/17 09:54 Nasal Cannula 2.0 28 07/10/17 08:00 97.6 59 22 159/70 100 Nasal Cannula 2.0 07/10/17 08:00 59 07/10/17 04:00 97.3 55 21 153/95 98 Nasal Cannula 2.0 07/10/17 03:19 54 07/10/17 00:00 97.7 55 23 151/78 98 Nasal Cannula 2.0 07/09/17 23:24 57 Intake and Output 07/09/17 07/10/17 19:00 07:00 Intake Total 1288.708 ml 1254.626 ml Balance 1288.708 ml 1254.626 ml Intake Free Water 230 ml 230 ml IV Total 538.708 ml 424.626 ml Tube Feeding 520 ml 600 ml # Voids 4 1 # Bowel Movements 1 Laboratory Tests 07/10/17 05:30: Sodium Level 134L, Potassium Level 3.0L, Chloride Level 99, Carbon Dioxide Level 31, Anion Gap 4L, Blood Urea Nitrogen 9, Creatinine 0.4L, Estimat Glomerular Filtration Rate , Glucose Level 105, Calcium Level 8.0L 07/10/17 08:00: White Blood Count 4.8, Red Blood Count 3.44L, Hemoglobin 10.2L, Hematocrit 31.0L , Mean Corpuscular Volume 90, Mean Corpuscular Hemoglobin 29.5, Mean Corpuscular Hemoglobin Concent 32.8, Red Cell Distribution Width 17.7H, Platelet Count 165, Mean Platelet Volume 6.8, Neutrophils (%) (Auto) 79.1H, Lymphocytes (%) (Auto) 12.2L, Monocytes (%) (Auto) 7.4, Eosinophils (%) (Auto) 0.9, Basophils (%) (Auto) 0.4 Height (Feet): 5 Height (Inches): 5.00 Weight (Pounds): 110 Joaquim Dwyer Jul 10, 2017 23:00
--- NOTE | 2017-07-11 18:39 | Discharge Summary ---
Discharge Summary Hospital Course Date of Admission Jun 30, 2017 at 16:55 Date of Discharge Jul 10, 2017 at 18:29 Admitting Diagnosis GI Bleed HPI Jesús Neri is a 82 year old female who was admitted on Jun 30, 2017 at 16:55 for Gi Bleed Hospital Course [id number] Discharge Discharge Disposition Patient was discharged to SNF/Subacute Facility(03) Discharge Diagnoses: Romy Diaz NP Jul 11, 2017 18:39
--- NOTE | 2017-07-12 02:45 | Discharge Summary 2 SIG ---
DATE OF ADMISSION: 06/30/2017 DATE OF DISCHARGE: 07/10/2017 CONSULTANTS: 1. Darien Arana M.D. 2. Dayron Garcia M.D. 3. Joaquim Dwyer M.D. 4. Godwin Weiss M.D. 5. Darien Arana M.D. BRIEF HOSPITAL COURSE: The patient is an 82-year-old female, who [facility] a [facility] with medical history significant for chronic obstructive pulmonary disease and dysphagia, status post recent PEG tube placement, who was transferred to [facility] due to hypotension as well as melena. On evaluation at ED, blood work showed hemoglobin of 3 and hematocrit was 10. Chest x-ray done showed no acute process with scarring seen in the left mid lung periphery. She was admitted to medical floor for evaluation of severe anemia. She was given blood transfusion. EKG done showed atrial fibrillation. The patient with no prior history per records. She was then transferred to telemetry and echocardiogram was done and showed ejection fraction of 55% to 60% with no aortic regurgitation, mild mitral regurgitation, moderate tricuspid regurgitation, and severe pulmonary hypertension. Blood culture was growing gram-positive cocci in pairs and clusters. She was followed by Infectious Disease specialist. Echocardiogram did not show any evidence of vegetation. She was started empirically on vancomycin and cefepime. She was planned to undergo EGD, however, it was canceled due to no consent and had bradycardia. Tube feedings were resumed. Her electrolytes were replaced. She eventually converted to sinus. She had elevated troponin levels, however, levels were flat, likely due to demand ischemia in view of low hemoglobin. She was taken off beta-nola secondary to bradycardia and unable to be given aspirin due to anemia. On 07/08/2017, she underwent EGD and findings showed gastric bypass, small gastric polyps without any obvious bleeding, status post change of J-tube. She had an abdominal x-ray done that showed no contrast leak with suboptimal positioning of the gastrostomy tip in the distal part of the stomach near the pylorus. She was eventually restarted on tube feedings. She had repeat chest x-ray that showed worsening bilateral interstitial infiltrates. The patient had repeat blood culture which was showing growth of Staphylococcus and Enterococcus. Rifampin was added for synergy. Repeat blood culture done and was negative. She was eventually [facility] to [facility] to continue antibiotic treatment. FINAL DIAGNOSES: 1. Healthcare-associated pneumonia. 2. Septic shock with coagulase-negative Staphylococcus and Enterococcus. 3. Hypotension. 4. Upper gastrointestinal bleed, status post esophagogastroduodenoscopy. 5. Severe acute anemia, requiring blood transfusion. 6. Fever due to pneumonia. 7. Pulmonary edema. 8. Anemia of iron deficiency. 9. Dehydration. 10. Dysphagia with jejunostomy tube. 11. Encephalopathy. 12. Acute blood-loss anemia. 13. Hypovolemic shock. 14. Atrial fibrillation. 15. Bradycardia. 16. Troponin leak. 17. Status post gastric bypass. 18. Stage III mid sacral pressure ulcer, present on admission. DISPOSITION: The patient was discharged to [facility]. Oscar Marshall M.D. I have been assigned to dictate discharge summary on this account and I was not involved in the patient's management. Romy Diaz N.P. DR: CHRISTINE JOB#: [id number] CC:
== END 2017-07-10 18:29 | DRG 871 ==
LOC: EDBD 12:21 → EMR 14:13 → EDBEDREQ 16:47 → 4W 16:55 → EDBEDREQ 17:24 → 2E 07-02 11:30
PROC: 02HV33Z Insertion of Infusion Device into Superior Vena Cava, Percutaneous Approach (ICD-10-PCS; principal; 2017-07-05)
PROC: B518ZZA Fluoroscopy of Superior Vena Cava, Guidance (ICD-10-PCS; principal; 2017-07-05)
PROC: 0D20XUZ Change Feeding Device in Upper Intestinal Tract, External Approach (ICD-10-PCS; 2017-07-08 10:02)
PROC: 0DB68ZX Excision of Stomach, Via Natural or Artificial Opening Endoscopic, Diagnostic (ICD-10-PCS; 2017-07-08 10:02)
DX: A41.81 Sepsis due to Enterococcus (principal); E43 Unspecified severe protein-calorie malnutrition; R57.1 Hypovolemic shock; G93.40 Encephalopathy, unspecified; G93.41 Metabolic encephalopathy; R40.3 Persistent vegetative state; J18.9 Pneumonia, unspecified organism; K92.2 Gastrointestinal hemorrhage, unspecified; J44.0 Chronic obstructive pulmonary disease with (acute) lower respiratory infection; L89.153 Pressure ulcer of sacral region, stage 3; R65.21 Severe sepsis with septic shock; D62 Acute posthemorrhagic anemia; Z68.1 Body mass index [BMI] 19.9 or less, adult; I24.8 Other forms of acute ischemic heart disease; A41.2 Sepsis due to unspecified staphylococcus; E86.0 Dehydration; R13.10 Dysphagia, unspecified; Z93.1 Gastrostomy status; I10 Essential (primary) hypertension; R00.1 Bradycardia, unspecified; R62.7 Adult failure to thrive; N90.7 Vulvar cyst; Z66 Do not resuscitate; E78.5 Hyperlipidemia, unspecified; I48.0 Paroxysmal atrial fibrillation; F03.90 Unspecified dementia, unspecified severity, without behavioral disturbance, psychotic disturbance, mood disturbance, and anxiety; K31.7 Polyp of stomach and duodenum; Z98.84 Bariatric surgery status
CPT/HCPCS: 36415; 36430; 36569; 36600; 71045; 74018; 76937; 80048; 80053; 80202; 81003; 82270; 82330; 82378; 82550; 82607; 82728; 82746; 82803; 83020; 83540; 83550; 83605; 83615; 83735; 83880; 83921; 84100; 84439; 84443; 84484; 85007; 85025; 85044; 85060; 85384; 85610; 85730; 86703; 86705; 86709; 86803; 86850; 86900; 86901; 86920; 87040; 87081; 87181; 87340; 93005; 93306; 93970; 94003; 94150; 94760; J2250; J8499

== ENCOUNTER 2017-07-14 03:04 | Inpatient (IN) | payer MEDICARE, OTHER ==
[~2017-07-14] VITALS: Ht 162.6 cm; Wt 54.4 kg
[2017-07-14] VITALS (9 sets, daily range): BP systolic 112–190; BP diastolic 44–107
[~2017-07-14 03:04] MED LIST: ACETAMINOPHEN325 M1 JT; ASPIRIN EC81 MG JT; ATORVASTATIN CA20 MG JT; CALMOSEPTINE O3.5 G1 TP; DOCUSATE SODIU100 MG JT; FERROUS SULFAT325 MG JT; VITAMIN A & D113 GM TP; VITAMIN C500 M1 JT; VITAMIN D400 INTLU JT
[2017-07-14] MEDS ORDERED: Pantoprazole Inj IVP ONE (03:15)
--- NOTE | 2017-07-14 03:15 | Emergency Room Report ---
History of Present Illness General Chief Complaint: Gastrointestinal Bleed Source: Medical Record, EMS Present Illness HPI Is an 81-year-old female who was just admitted here and discharged couple days ago. She initially came in with a hemoglobin of 3 and an EGD noted to have a gastric ulcer. Also was positive for staph aureus in her low been on antibiotics currently. She presents with chief complaint of melanotic stool. Onset yesterday. No nausea no vomiting. Otherwise at baseline per EMS. History is limited because patient is nonverbal. She is currently not on any anticoagulations. Allergies: Coded Allergies: No Known Allergies (Unverified , 06/30/17) Patient History Past Medical History: see triage record, old chart reviewed Past Surgical History: other Pertinent Family History: none Social History: Denies: smoking Now: No Immunizations: UTD Reviewed Nursing Documentation: PMH: Agreed, PSxH: Agreed Nursing Documentation-PMH Past Medical History: No History, Except For Hx Cardiac Problems: Yes - Anemia, Weakness, Hyperlipidemia, PICC line LUE Hx COPD: Yes Hx Cancer: No Hx Gastrointestinal Problems: Yes - GT, Dysphagia, Malnutrition, Failure to Thrive History Of Psychiatric Problem: Yes - Major Depressive Disorder, Dementia Hx Neurological Problems: Yes Hx Dementia: Yes Review of Systems Eye: Denies: eye pain, blurred vision ENT: Denies: ear pain, nose congestion, throat swelling Respiratory: Denies: cough, shortness of breath Cardiovascular: Denies: chest pain, palpitations Gastrointestinal: Reports: melena, Denies: abdominal pain, diarrhea, nausea, vomiting Musculoskeletal: Denies: back pain, joint pain Skin: Denies: rash Neurological: Denies: headache, numbness Endocrine: Denies: increased thirst, increased urine Hematologic/Lymphatic: Denies: easy bruising All Other Systems: negative except mentioned in HPI Physical Exam Vital Signs Date Time Temp Pulse Resp B/P (MAP) Pulse Ox O2 Delivery O2 Flow Rate FiO2 07/14/17 02:54 97.6 62 20 190/107 94 Nasal Cannula 2.0 97.5 vitals with high blood pressure Sp02 EP Interpretation: reviewed, normal General Appearance: cachetic, Chronically Ill Head: normocephalic, atraumatic Eyes: bilateral eye PERRL, bilateral eye EOMI ENT: hearing grossly normal, normal pharynx Neck: full range of motion, supple, no meningismus Respiratory: chest non-tender, lungs clear, normal breath sounds Cardiovascular #1: regular rate, rhythm, no murmur Gastrointestinal: normal bowel sounds, non tender, no mass, no organomegaly, no bruit, non-distended Musculoskeletal: other - Contracted Psychiatric: mood/affect normal Skin: warm/dry Medical Decision Making Diagnostic Impression: Primary Impression: GI bleed Qualified Codes: K92.2 - Gastrointestinal hemorrhage, unspecified Additional Impression: Acute blood loss anemia ER Course Patient with melena. Most likely upper GI bleeding. Hemoglobin stable. No perforation a chest x-ray. Troponin is trending downward. Patient will be admitted for further monitoring and serial blood draw. I discussed the case with Dr. Cooper who asked that Dr. Marshall admit. I contacted him and Margy Strong for admission. Lab Results Impression labs unremarkable EKG Diagnostic Results Rate: normal Rhythm: NSR ST Segments: no acute changes Rhythm Strip Diag. Results Rhythm Strip Time: 04:34 EP Interpretation: yes Rate: 56 Rhythm: NSR, no PVC's, no ectopy Chest X-Ray Diagnostic Results Chest X-Ray Diagnostic Results : Chest X-Ray Ordered: Yes # of Views/Limited/Complete: 1 View Indication: Other EP Interpretation: Yes Interpretation: no consolidation, no effusion, no pneumothorax Impression: No acute disease Electronically Signed by: Juan R Regan MD Last Vital Signs Date Time Temp Pulse Resp B/P (MAP) Pulse Ox O2 Delivery O2 Flow Rate FiO2 07/14/17 02:54 97.6 62 20 190/107 94 Nasal Cannula 2.0 97.5 Status: improved Disposition: ADMITTED INPATIENT Condition: Serious JUAN R REGAN M.D. Jul 14, 2017 03:15
[2017-07-14 03:30] LABS: BASOPHILS % (AUTO) 0.3 % (0.0-2.0); EOSINOPHILS % (AUTO) 2.6 % (0.0-3.0); HEMATOCRIT 33.9 % (37.0-47.0); HEMOGLOBIN 11.2 G/DL (12.0-16.0); LYMPHOCYTES % (AUTO) 24.1 % (20.0-45.0); MEAN CORPUSCULAR VOLUME 90 FL (80-99); PLATELET COUNT 283 K/UL (150-450); RED BLOOD COUNT 3.79 M/UL (4.20-5.40); RED CELL DISTRIBUTION WIDTH 18.1 % (11.6-14.8); WHITE BLOOD COUNT 6.6 K/UL (4.8-10.8)
[2017-07-14 03:40] LABS: ANION GAP 1 mmol/L (5-15); BLOOD UREA NITROGEN 4 mg/dL (7-18); CALCIUM 8.5 MG/DL (8.5-10.1); CARBON DIOXIDE 37 MMOL/L (21-32); CHLORIDE 103 MMOL/L (98-107); CREATININE 0.4 MG/DL (0.55-1.30); POTASSIUM 3.1 MMOL/L (3.5-5.1); SODIUM 141 MMOL/L (136-145)
[2017-07-14] MEDS ORDERED: PANTOPRAZOLE SO40 MG JT (03:55)
[2017-07-14] MEDS ORDERED: RIFADIN150 MG JT (03:55)
--- NOTE | 2017-07-14 10:16 | Consultation ---
DATE OF CONSULTATION: 07/14/2017 GASTROENTEROLOGY CONSULTATION CONSULTING PHYSICIAN: Darien Arana M.D. CHIEF COMPLAINT: Questionable GI bleeding. HISTORY OF PRESENT ILLNESS: This is an elderly patient. She is an 82-year-old, recently discharged from [facility]. On last admission, I was consulted for evaluation of GI bleeding. The patient has anemia. She has a stool OB positive. In the beginning, we did not wanted to scope her because she has bradycardia. Cardiology was consulted and watch repair person basically stated that there is not much that can be done and basically because she is at the baseline. So, we did an endoscopy for her. Endoscopy showed evidence of gastric bypass surgery. No evidence of any active upper GI bleeding. She also had a jejunostomy tube, which was replaced at the time of endoscopy. The patient was fed. Discharge hemoglobin was over 10.4, about 10 basically. The patient was readmitted again from a [facility] for possible GI bleeding and melena, although her hemoglobin at this time is 11, which is baseline. PAST MEDICAL HISTORY: History of anemia, history of gastric bypass surgery, history of surgical jejunostomy, COPD, pneumonia, dementia, dysphagia, atrial fibrillation, and bradycardia. PAST SURGICAL HISTORY: Gastric bypass surgery. ALLERGIES: No known drug allergies. MEDICATIONS: Please see medication reconciliation list. SOCIAL HISTORY: Currently in a [facility]. No history of tobacco, alcohol, or drug abuse. REVIEW OF SYSTEMS: Unable to obtain. PHYSICAL EXAMINATION: VITAL SIGNS: Temperature is 97.4, pulse is 68, respirations 18, and blood pressure is 125/75. HEENT: Normocephalic. Mild pale conjunctiva. NECK: Supple. No evidence of lymphadenopathy. CARDIOVASCULAR: Regular rhythm. Plus S1 and S2. LUNGS: Decreased breath sounds bilaterally. ABDOMEN: Soft. There is a scar in the midline from prior surgery. G-tube in place. No rebound. No guarding. No peritoneal sign. EXTREMITIES: No cyanosis, no clubbing, and no edema. LABORATORY DATA: White count is 6.6, hemoglobin 11.2, hematocrit 33.9, and platelet count is 283,000. Chem-7, sodium 141, potassium 3.1, BUN is 4, creatinine is 0.4. Troponin mildly elevated 0.063. ASSESSMENT AND PLAN: This is an 82-year-old female with history of numerous medical problems, which as dictated above, history of iron deficiency anemia, history of gastric bypass surgery, history of stool OB positive without any upper endoscopy findings, re-admitted again with questionable melena. I am not sure if the patient actually had gastrointestinal bleeding given hemoglobin today is better than at discharge time. We will plan to start feeding through her jejunostomy tube. We will send the stool for OB. We will monitor her hemoglobin and hematocrit. We will consider doing a colonoscopy if needed. Meanwhile given the history of iron deficiency anemia, we will start on IV iron. I want to thank, Dr. Marshall, for this kind referral. Darien Arana M.D. DR: GARRY JOB#: [id number] CC: Oscar Marshall M.D.; Fax#: [phone]
--- NOTE | 2017-07-14 11:20 | Diagnostic Imaging Report ---
Indication: Dyspnea Comparison: 07/10/2017 A single view chest radiograph was obtained. Findings: Interstitial edema and pulmonary vascularity are noted. The heart is enlarged. There is generalized osteopenia. Surgical clips in the upper abdomen noted. PICC line is noted. Much of the upper lung field is obscured. IMPRESSION: Very limited study. Pulmonary edema is likely still present.
--- NOTE | 2017-07-14 11:27 | History and Physical ---
History of Present Illness General Date patient seen: Jul 14, 2017 Reason for Hospitalization: Gastrointestinal Bleed Present Illness HPI This is an 81-year-old female who was just discharged from this facility a couple days ago. She initially came in with a hemoglobin of 3 on last admission. EGD was done and was noted to have a gastric ulcer.She also had septicemia at the time with CoNS then enterococcus. She was discharged to SNF to continue on vanco and rifampin for 4 more weeks. She now presents again with chief complaint of melanotic stool. Onset yesterday. No nausea or vomiting. She is currently not on any anticoagulations. Her Hgb though stable at 11. Patient has been admitted for further care. On visit, patient is alert but nonverbal. Per nursing, she did have large tarry black loose stool this am. Allergies: Coded Allergies: No Known Allergies (Unverified , 06/30/17) Medication History Scheduled Ascorbic Acid* (Vitamin C*), 500 MG JT DAILY, (Reported) Aspirin Ec* (Aspirin Ec*), 81 MG JT DAILY, (Reported) Atorvastatin Calcium* (Atorvastatin Calcium*), 20 MG JT BEDTIME, (Reported) Docusate Sodium* (Docusate Sodium*), 100 MG JT TWICE A DAY, (Reported) Ferrous Sulfate* (Ferrous Sulfate*), 325 MG JT DAILY, (Reported) Menthol/Zinc Oxide (Calmoseptine Ointment), 3.5 GM TP DAILY, (Reported) Pantoprazole* (Pantoprazole*), 30 MG JT BID, (Reported) Petrolatum,White/Lanolin (Vitamin A & D Ointment), 113 GM TP DAILY, (Reported) Rifampin* (Rifadin*), 300 MG JT EVERY 12 HOURS, (Reported) Vitamin D (Vitamin D3), 1,000 UNITS JT DAILY, (Reported) Scheduled PRN Acetaminophen* (Acetaminophen 325MG Tablet*), 650 MG JT Q4H PRN for Fever/ Headache/Mild Pain, (Reported) Patient History History Provided By: Medical Record Healthcare decision maker Resuscitation status Do Not Resuscitate Advanced Directive on File Past Medical/Surgical History Past Medical/Surgical History: (1) GI bleed (2) HCAP (healthcare-associated pneumonia) (3) Encephalopathy (4) Dysphagia Review of Systems ROS Narrative unable to obtain given patient's mental status. Physical Exam General Appearance: WD/WN, no apparent distress Respiratory/Chest: lungs clear Cardiovascular/Chest: bradycardia Abdomen: non tender, soft Extremities: non-tender Neurologic: alert Last 24 Hour Vital Signs Date Time Temp Pulse Resp B/P (MAP) Pulse Ox O2 Delivery O2 Flow Rate FiO2 07/14/17 09:00 97.4 94 20 112/75 99 07/14/17 08:00 97.4 58 18 125/75 100 07/14/17 05:20 97.3 55 17 112/60 98 Nasal Cannula 2.0 97.3 07/14/17 05:07 97.3 55 17 112/60 98 Nasal Cannula 2.0 97.3 07/14/17 04:14 57 17 123/44 99 Nasal Cannula 2.0 07/14/17 03:15 97.1 62 20 190/107 94 Nasal Cannula 2.0 97.1 07/14/17 02:54 97.6 62 20 190/107 94 Nasal Cannula 2.0 97.5 Intake and Output 07/13/17 07/14/17 19:00 07:00 Intake Total 360 ml Balance 360 ml Intake Oral 0 ml Free Water 120 ml Other 240 ml # Bowel Movements 3 Laboratory Tests Test 07/14/17 03:10 White Blood Count 6.6 K/UL (4.8-10.8) Red Blood Count 3.79 M/UL (4.20-5.40) L Hemoglobin 11.2 G/DL (12.0-16.0) L Hematocrit 33.9 % (37.0-47.0) L Mean Corpuscular Volume 90 FL (80-99) Mean Corpuscular Hemoglobin 29.5 PG (27.0-31.0) Mean Corpuscular Hemoglobin Concent 33.0 G/DL (32.0-36.0) Red Cell Distribution Width 18.1 % (11.6-14.8) H Platelet Count 283 K/UL (150-450) Mean Platelet Volume 6.4 FL (6.5-10.1) L Neutrophils (%) (Auto) 65.0 % (45.0-75.0) Lymphocytes (%) (Auto) 24.1 % (20.0-45.0) Monocytes (%) (Auto) 8.0 % (1.0-10.0) Eosinophils (%) (Auto) 2.6 % (0.0-3.0) Basophils (%) (Auto) 0.3 % (0.0-2.0) Prothrombin Time 10.7 SEC (9.30-11.50) Prothromb Time International Ratio 1.0 (0.9-1.1) Activated Partial Thromboplast Time 30 SEC (23-33) Sodium Level 141 MMOL/L (136-145) Potassium Level 3.1 MMOL/L (3.5-5.1) L Chloride Level 103 MMOL/L (98-107) Carbon Dioxide Level 37 MMOL/L (21-32) H Anion Gap 1 mmol/L (5-15) L Blood Urea Nitrogen 4 mg/dL (7-18) L Creatinine 0.4 MG/DL (0.55-1.30) L Estimat Glomerular Filtration Rate mL/min (>60) Glucose Level 100 MG/DL (74-106) Calcium Level 8.5 MG/DL (8.5-10.1) Troponin I 0.063 ng/mL (0.000-0.056) Height (Feet): 5 Height (Inches): 4.00 Weight (Pounds): 120 Medications Current Medications Medications (Trade) Dose Ordered Sig/Brianna Route PRN Reason Start Time Stop Time Status Last Admin Dose Admin Chlorhexidine Gluconate (Karime-Hex 2%) 1 applic DAILY@1999 TOPIC 07/14/17 20:00 08/13/17 19:59 Iron Sucrose 100 mg/Sodium Chloride 60 ml @ 240 mls/hr BEDTIME IV 07/14/17 21:00 07/18/17 21:14 Assessment/Plan Problem List: (1) Dysphagia ICD Codes: R13.10 - Dysphagia, unspecified SNOMED: 73214997, 161878375 (2) PEG (percutaneous endoscopic gastrostomy) status ICD Codes: Z93.1 - Gastrostomy status SNOMED: 138647819, 646196957 (3) Encephalopathy ICD Codes: G93.40 - Encephalopathy, unspecified SNOMED: 52139471 (4) GI bleed ICD Codes: K92.2 - Gastrointestinal hemorrhage, unspecified SNOMED: 71131035 Qualifiers: Qualified Codes: K92.2 - Gastrointestinal hemorrhage, unspecified (5) Bradycardia ICD Codes: R00.1 - Bradycardia, unspecified SNOMED: 67838185 (6) Bacteremia Assessment & Plan: CoNS and enterococcus. BCx cleared from 07/09. ICD Codes: R78.81 - Bacteremia SNOMED: 8417071 Assessment/Plan Repeat BCx to document clearance. Resume vancomycin. ID consulted. Dr. Garcia consulted for bradycardia. Gi consulted for possible recurrent GIB. Monitor H/H. Transfuse prn. D/w Dr. Marshall. Resume home meds. DVT ppx - heparin contraindicated. Will use SCD's. Check for C/ diff. SHARON HOLLOWAY Jul 14, 2017 11:27
[2017-07-14] MEDS ORDERED: Acetaminophen 650mg/20.3ml JT PRN (12:00)
--- NOTE | 2017-07-14 13:20 | Infectious Diseases Prog Note ---
Assessment/Plan Problems: (1) Sepsis due to coagulase-negative staphylococcal infection Assessment & Plan: and enterococcus spp, will continue vancomycin and resume rifampin for synergy and treat for 4 weeks total starting from 07/09 when she cleared her blood , will repeat blood culture this admission too (2) Acute blood loss anemia Assessment & Plan: suspect due to GI bleeding , monitor H/H transfuse blood as needed, GI is following (3) GI bleed Assessment & Plan: with PUD, S/P EGD last addmission , monitor H/H, transfuse blood as needed, GI is following, screen for C diff Subjective Allergies: Coded Allergies: No Known Allergies (Unverified , 06/30/17) Objective Vital Signs Last 24 Hour Vital Signs Date Time Temp Pulse Resp B/P (MAP) Pulse Ox O2 Delivery O2 Flow Rate FiO2 07/14/17 09:00 97.4 94 20 112/75 99 07/14/17 08:00 97.4 58 18 125/75 100 07/14/17 05:20 97.3 55 17 112/60 98 Nasal Cannula 2.0 97.3 07/14/17 05:07 97.3 55 17 112/60 98 Nasal Cannula 2.0 97.3 07/14/17 04:14 57 17 123/44 99 Nasal Cannula 2.0 07/14/17 03:15 97.1 62 20 190/107 94 Nasal Cannula 2.0 97.1 07/14/17 02:54 97.6 62 20 190/107 94 Nasal Cannula 2.0 97.5 Height (Feet): 5 Height (Inches): 4.00 Weight (Pounds): 120 Laboratory Tests Test 07/14/17 03:10 White Blood Count 6.6 K/UL (4.8-10.8) Red Blood Count 3.79 M/UL (4.20-5.40) L Hemoglobin 11.2 G/DL (12.0-16.0) L Hematocrit 33.9 % (37.0-47.0) L Mean Corpuscular Volume 90 FL (80-99) Mean Corpuscular Hemoglobin 29.5 PG (27.0-31.0) Mean Corpuscular Hemoglobin Concent 33.0 G/DL (32.0-36.0) Red Cell Distribution Width 18.1 % (11.6-14.8) H Platelet Count 283 K/UL (150-450) Mean Platelet Volume 6.4 FL (6.5-10.1) L Neutrophils (%) (Auto) 65.0 % (45.0-75.0) Lymphocytes (%) (Auto) 24.1 % (20.0-45.0) Monocytes (%) (Auto) 8.0 % (1.0-10.0) Eosinophils (%) (Auto) 2.6 % (0.0-3.0) Basophils (%) (Auto) 0.3 % (0.0-2.0) Prothrombin Time 10.7 SEC (9.30-11.50) Prothromb Time International Ratio 1.0 (0.9-1.1) Activated Partial Thromboplast Time 30 SEC (23-33) Sodium Level 141 MMOL/L (136-145) Potassium Level 3.1 MMOL/L (3.5-5.1) L Chloride Level 103 MMOL/L (98-107) Carbon Dioxide Level 37 MMOL/L (21-32) H Anion Gap 1 mmol/L (5-15) L Blood Urea Nitrogen 4 mg/dL (7-18) L Creatinine 0.4 MG/DL (0.55-1.30) L Estimat Glomerular Filtration Rate mL/min (>60) Glucose Level 100 MG/DL (74-106) Calcium Level 8.5 MG/DL (8.5-10.1) Troponin I 0.063 ng/mL (0.000-0.056) Current Medications Medications (Trade) Dose Ordered Sig/Brianna Route PRN Reason Start Time Stop Time Status Last Admin Dose Admin Acetaminophen (Tylenol) 650 mg Q4H PRN JT Fever/Headache/Mild Pain 07/14/17 12:00 08/13/17 11:59 Ascorbic Acid (Vitamin C) 500 mg DAILY GT 07/15/17 09:00 08/14/17 08:59 Aspirin (ASA) 81 mg DAILY GT 07/15/17 09:00 08/14/17 08:59 Atorvastatin Calcium (Lipitor) 20 mg BEDTIME GT 07/14/17 21:00 08/13/17 20:59 Chlorhexidine Gluconate (Karime-Hex 2%) 1 applic DAILY@1999 TOPIC 07/14/17 20:00 08/13/17 19:59 Docusate Sodium (Colace) 100 mg TWICE A DAY JT 07/14/17 18:00 08/13/17 17:59 Iron Sucrose 100 mg/Sodium Chloride 60 ml @ 240 mls/hr BEDTIME IV 07/14/17 21:00 07/18/17 21:14 Vancomycin HCl (Vanco rx to dose) 1 ea DAILY PRN MISC Per rx protocol 07/14/17 12:00 08/13/17 11:59 Vancomycin/Sodium Chloride 250 ml @ 166.667 mls/hr Q12HR@0100,1300 IVPB 07/14/17 13:00 07/19/17 12:59 Vitamin D (Vitamin D) 1,000 intlu DAILY GT 07/15/17 09:00 08/14/17 08:59 Godwin Weiss M.D. Jul 14, 2017 13:19
[2017-07-14] MEDS: Vancomycin 750mg/NS 250ml IVPB SCH (13:44)
[2017-07-14 15:21] LABS: BASOPHILS % (AUTO) 0.9 % (0.0-2.0); EOSINOPHILS % (AUTO) 2.3 % (0.0-3.0); HEMATOCRIT 30.9 % (37.0-47.0); HEMOGLOBIN 10.3 G/DL (12.0-16.0); LYMPHOCYTES % (AUTO) 18.7 % (20.0-45.0); MEAN CORPUSCULAR VOLUME 91 FL (80-99); MONOCYTES % (AUTO) 9.2 % (1.0-10.0); NEUTROPHILS % (AUTO) 68.9 % (45.0-75.0); PLATELET COUNT 263 K/UL (150-450); RED BLOOD COUNT 3.39 M/UL (4.20-5.40); RED CELL DISTRIBUTION WIDTH 18.4 % (11.6-14.8); WHITE BLOOD COUNT 5.7 K/UL (4.8-10.8)
--- NOTE | 2017-07-14 16:02 | Consultation ---
DATE OF CONSULTATION: 07/14/2017 INFECTIOUS DISEASES CONSULTATION CONSULTING PHYSICIAN: Godwin Weiss M.D. REQUESTING PHYSICIAN: Oscar Marshall M.D. REASON FOR CONSULTATION: History of sepsis with bacteremia due to coagulase-negative Staph and Enterococcus species, recommendation for antibiotics treatment HISTORY OF PRESENT ILLNESS: The patient is an 82-year-old female, well known to me from previous admission, was discharged recently a couple of days ago after she was found to have gastrointestinal bleeding due to peptic ulcer disease status post EGD and bacteremia due to coagulase-negative Staph and enterococcus species. The patient initially was started on vancomycin. She did not clear her bacteremia well until rifampin was added, that did the goal of clearing her blood. The patient had a PICC line placed while she was bacteremic but repeated blood culture did not show any evidence of positive result from the PICC itself. The patient did well from infection standpoint. [facility]. Unfortunately she was readmitted today actually with recurrent gastrointestinal bleeding and melena so Infectious Diseases consultation was requested for antibiotics management and further care. As of note, the patient is poor historian, cannot provide any history, and history was mainly obtained from the medical record. REVIEW OF SYSTEMS: Unable to obtain. The patient is poor historian, cannot provide any history. PAST MEDICAL HISTORY: Significant for GI bleeding due to peptic ulcer disease, recent bacteremia with coagulase-negative Staph and enterococcus species, healthcare-acquired pneumonia, encephalopathy, dysphagia. PAST SURGICAL HISTORY: Unclear from the record. ALLERGIES: She has no known drug allergy. MEDICATIONS: The patient on vancomycin. For the rest of her medications, please refer to [facility]. FAMILY HISTORY: Unable to obtain. SOCIAL HISTORY: The patient lives at [facility]. No recent drugs, tobacco, or alcohol. PHYSICAL EXAMINATION: VITAL SIGNS: Temperature 97.7, pulse 59, respirations 18, blood pressure 122/71, saturation 98% on 2 liters nasal cannula. GENERAL: Elderly female, cachectic, lying in bed, alert, responsive, not in acute distress, nonverbal. HEENT: Normocephalic and atraumatic. Pupils are reactive to light. Dry oral mucosa. No exudate. NECK: Supple. No lymphadenopathy. CARDIOVASCULAR: Regular rate and rhythm. No murmur. No gallop. LUNGS: She had crackles at the bases with diminished breathing sounds. No wheezing or rhonchi. ABDOMEN: Soft, nontender, and nondistended. Positive bowel sounds. No hepatosplenomegaly. No ascites. EXTREMITIES: No edema or cyanosis. No clubbing. SKIN: She had sacral decubitus wound stage II clean with granulation tissue. No pus or drainage. LABORATORY AND DIAGNOSTIC DATA: Labs showed white count of 6.6, hemoglobin of 11.2, platelet count of 283. BUN of 4 and creatinine of 0.4. Microbiology from previous admission, blood culture on 06/30/2017 x 2 grew Staph coagulase coagulase-negative from both sets. Repeated blood culture on 07/05/2017 grew Staph coagulase-negative species from one set only. Repeated blood culture 07/06/2017 both sets grew Staph coagulase-negative species and Enterococcus faecalis. On 07/09/2017 blood culture x2 negative to date. IMAGING: Chest x-ray showed limited study, pulmonary edema is likely still present. ASSESSMENT AND RECOMMENDATION: 1. Sepsis due to coagulase-negative Staph and Enterococcus faecalis species, we will resume her rifampin and continue vancomycin for four weeks total starting from 07/09/2017. We will repeat blood culture in this visit due to confirm clearance. The patient already cleared on 07/09/2017 from previous admission. 2. Acute blood loss anemia suspect due to gastrointestinal bleeding. Monitor hemoglobin and hematocrit. Transfuse blood as needed. Gastrointestinal is following. 3. Gastrointestinal bleeding with peptic ulcer disease, status post esophagogastroduodenoscopy last admission. Monitor hemoglobin and hematocrit. Transfuse blood if needed. Gastrointestinal is following. Screening for C diff is pending. Thank you for the consult. ID will continue to follow. Godwin Weiss M.D. DR: Yaron JOB#: [id number] CC:
[2017-07-14] MEDS: Docusate 100mg/10ml Liq JT SCH (18:02)
[2017-07-14] MEDS: Atorvastatin 20mg tab GT SCH (20:45)
[2017-07-14] MEDS: Iron Sucrose 100 MG in NS 55 ML IV SCH (20:46)
[2017-07-14] MEDS: Dyna-Hex 2% Top Sol 2oz TOPIC SCH (20:46)
[2017-07-15] VITALS: BP 136/70
[2017-07-15] MEDS: Vancomycin 750mg/NS 250ml IVPB SCH ×2 (00:36→12:51)
[2017-07-15 04:00] VITALS: BP 143/92
[2017-07-15 07:38] LABS: BASOPHILS % (AUTO) 0.8 % (0.0-2.0); EOSINOPHILS % (AUTO) 3.3 % (0.0-3.0); HEMATOCRIT 31.3 % (37.0-47.0); HEMOGLOBIN 10.2 G/DL (12.0-16.0); LYMPHOCYTES % (AUTO) 17.2 % (20.0-45.0); MEAN CORPUSCULAR VOLUME 90 FL (80-99); MONOCYTES % (AUTO) 10.2 % (1.0-10.0); NEUTROPHILS % (AUTO) 68.6 % (45.0-75.0); PLATELET COUNT 246 K/UL (150-450); RED BLOOD COUNT 3.46 M/UL (4.20-5.40); RED CELL DISTRIBUTION WIDTH 17.9 % (11.6-14.8); WHITE BLOOD COUNT 6.2 K/UL (4.8-10.8)
[2017-07-15 07:58] LABS: ANION GAP 3 mmol/L (5-15); BLOOD UREA NITROGEN 5 mg/dL (7-18); CALCIUM 8.3 MG/DL (8.5-10.1); CARBON DIOXIDE 34 MMOL/L (21-32); CHLORIDE 102 MMOL/L (98-107); CREATININE 0.4 MG/DL (0.55-1.30); POTASSIUM 3.4 MMOL/L (3.5-5.1); SODIUM 138 MMOL/L (136-145)
[2017-07-15 08:00] VITALS: BP 159/104
[2017-07-15] MEDS: Vitamin D 1000 IU Tab GT SCH (09:07)
[2017-07-15] MEDS: Aspirin Baby 81mg GT SCH (09:07)
[2017-07-15] MEDS: Ascorbic Acid 500mg tab GT SCH (09:08)
[2017-07-15] MEDS: Docusate 100mg/10ml Liq JT SCH ×2 (09:08→17:12)
[2017-07-15 12:00] VITALS: BP 157/67
--- NOTE | 2017-07-15 12:11 | GI Progress Note ---
Assessment/Plan Problems: (1) PEG (percutaneous endoscopic gastrostomy) status ICD Codes: Z93.1 - Gastrostomy status SNOMED: 318033152, 344368053 (2) GI bleed ICD Codes: K92.2 - Gastrointestinal hemorrhage, unspecified SNOMED: 58620986 Qualifiers: Qualified Codes: K92.2 - Gastrointestinal hemorrhage, unspecified (3) Dysphagia ICD Codes: R13.10 - Dysphagia, unspecified SNOMED: 39225907, 860148128 (4) Severe malnutrition ICD Codes: E43 - Unspecified severe protein-calorie malnutrition SNOMED: 73371262 (5) Severe anemia ICD Codes: D64.9 - Anemia, unspecified SNOMED: 721111488 (6) Dehydration ICD Codes: E86.0 - Dehydration SNOMED: 35756305 Status: stable Status Narrative Discussed with Dr. Arana. Assessment/Plan hx of gastric bypass stable H&H GJ feedings per RD prn transfusions OB stool r/o GI bleed ppi iv iron will consider colonoscopy if necessary fu labs Subjective Subjective limited Objective Last 24 Hour Vital Signs Date Time Temp Pulse Resp B/P (MAP) Pulse Ox O2 Delivery O2 Flow Rate FiO2 07/15/17 08:00 97.3 62 20 159/104 99 07/15/17 04:00 97.2 59 18 143/92 99 07/15/17 00:00 97.5 56 19 136/70 100 07/15/17 00:00 100 Nasal Cannula 2.0 07/14/17 21:00 97.6 58 19 157/95 98 07/14/17 20:00 98 Nasal Cannula 2.0 07/14/17 20:00 97.6 58 19 157/95 98 07/14/17 15:50 98.2 60 18 134/63 97 Nasal Cannula 2.0 Intake and Output 07/14/17 07/15/17 19:00 07:00 Intake Total 910.000 ml 1313.334 ml Balance 910.000 ml 1313.334 ml Free Water 300 ml 200 ml IV Total 250.000 ml 573.334 ml Tube Feeding 360 ml 540 ml # Voids 5 4 # Bowel Movements 1 Laboratory Tests Test 07/14/17 14:40 07/15/17 06:40 White Blood Count 5.7 K/UL (4.8-10.8) 6.2 K/UL (4.8-10.8) Red Blood Count 3.39 M/UL (4.20-5.40) L 3.46 M/UL (4.20-5.40) L Hemoglobin 10.3 G/DL (12.0-16.0) L 10.2 G/DL (12.0-16.0) L Hematocrit 30.9 % (37.0-47.0) L 31.3 % (37.0-47.0) L Mean Corpuscular Volume 91 FL (80-99) 90 FL (80-99) Mean Corpuscular Hemoglobin 30.3 PG (27.0-31.0) 29.5 PG (27.0-31.0) Mean Corpuscular Hemoglobin Concent 33.3 G/DL (32.0-36.0) 32.6 G/DL (32.0-36.0) Red Cell Distribution Width 18.4 % (11.6-14.8) H 17.9 % (11.6-14.8) H Platelet Count 263 K/UL (150-450) 246 K/UL (150-450) Mean Platelet Volume 6.8 FL (6.5-10.1) 6.3 FL (6.5-10.1) L Neutrophils (%) (Auto) 68.9 % (45.0-75.0) 68.6 % (45.0-75.0) Lymphocytes (%) (Auto) 18.7 % (20.0-45.0) L 17.2 % (20.0-45.0) L Monocytes (%) (Auto) 9.2 % (1.0-10.0) 10.2 % (1.0-10.0) H Eosinophils (%) (Auto) 2.3 % (0.0-3.0) 3.3 % (0.0-3.0) H Basophils (%) (Auto) 0.9 % (0.0-2.0) 0.8 % (0.0-2.0) Sodium Level 138 MMOL/L (136-145) Potassium Level 3.4 MMOL/L (3.5-5.1) L Chloride Level 102 MMOL/L (98-107) Carbon Dioxide Level 34 MMOL/L (21-32) H Anion Gap 3 mmol/L (5-15) L Blood Urea Nitrogen 5 mg/dL (7-18) L Creatinine 0.4 MG/DL (0.55-1.30) L Estimat Glomerular Filtration Rate mL/min (>60) Glucose Level 89 MG/DL (74-106) Calcium Level 8.3 MG/DL (8.5-10.1) L Troponin I 0.041 ng/mL (0.000-0.056) Height (Feet): 5 Height (Inches): 4.00 Weight (Pounds): 120 General Appearance: WD/WN, no apparent distress, alert, thin Cardiovascular: normal rate Respiratory/Chest: normal breath sounds, no respiratory distress Abdominal Exam: normal bowel sounds, non tender, soft Extremities: non-tender Amira Rios N.P. Jul 15, 2017 12:11
--- NOTE | 2017-07-15 13:53 | Cardiac Electrophysiology PN ---
Subjective Subjective Dictated [id number] Objective Last 24 Hour Vital Signs Date Time Temp Pulse Resp B/P (MAP) Pulse Ox O2 Delivery O2 Flow Rate FiO2 07/15/17 12:00 97.7 62 20 157/67 100 07/15/17 08:00 97.3 62 20 159/104 99 07/15/17 04:00 97.2 59 18 143/92 99 07/15/17 00:00 97.5 56 19 136/70 100 07/15/17 00:00 100 Nasal Cannula 2.0 07/14/17 21:00 97.6 58 19 157/95 98 07/14/17 20:00 98 Nasal Cannula 2.0 07/14/17 20:00 97.6 58 19 157/95 98 07/14/17 15:50 98.2 60 18 134/63 97 Nasal Cannula 2.0 Intake and Output 07/14/17 07/15/17 19:00 07:00 Intake Total 910.000 ml 1313.334 ml Balance 910.000 ml 1313.334 ml Free Water 300 ml 200 ml IV Total 250.000 ml 573.334 ml Tube Feeding 360 ml 540 ml # Voids 5 4 # Bowel Movements 1 Laboratory Tests Test 07/14/17 14:40 07/15/17 06:40 White Blood Count 5.7 K/UL (4.8-10.8) 6.2 K/UL (4.8-10.8) Red Blood Count 3.39 M/UL (4.20-5.40) L 3.46 M/UL (4.20-5.40) L Hemoglobin 10.3 G/DL (12.0-16.0) L 10.2 G/DL (12.0-16.0) L Hematocrit 30.9 % (37.0-47.0) L 31.3 % (37.0-47.0) L Mean Corpuscular Volume 91 FL (80-99) 90 FL (80-99) Mean Corpuscular Hemoglobin 30.3 PG (27.0-31.0) 29.5 PG (27.0-31.0) Mean Corpuscular Hemoglobin Concent 33.3 G/DL (32.0-36.0) 32.6 G/DL (32.0-36.0) Red Cell Distribution Width 18.4 % (11.6-14.8) H 17.9 % (11.6-14.8) H Platelet Count 263 K/UL (150-450) 246 K/UL (150-450) Mean Platelet Volume 6.8 FL (6.5-10.1) 6.3 FL (6.5-10.1) L Neutrophils (%) (Auto) 68.9 % (45.0-75.0) 68.6 % (45.0-75.0) Lymphocytes (%) (Auto) 18.7 % (20.0-45.0) L 17.2 % (20.0-45.0) L Monocytes (%) (Auto) 9.2 % (1.0-10.0) 10.2 % (1.0-10.0) H Eosinophils (%) (Auto) 2.3 % (0.0-3.0) 3.3 % (0.0-3.0) H Basophils (%) (Auto) 0.9 % (0.0-2.0) 0.8 % (0.0-2.0) Sodium Level 138 MMOL/L (136-145) Potassium Level 3.4 MMOL/L (3.5-5.1) L Chloride Level 102 MMOL/L (98-107) Carbon Dioxide Level 34 MMOL/L (21-32) H Anion Gap 3 mmol/L (5-15) L Blood Urea Nitrogen 5 mg/dL (7-18) L Creatinine 0.4 MG/DL (0.55-1.30) L Estimat Glomerular Filtration Rate mL/min (>60) Glucose Level 89 MG/DL (74-106) Calcium Level 8.3 MG/DL (8.5-10.1) L Troponin I 0.041 ng/mL (0.000-0.056) GEOFFREY AGUERO Jul 15, 2017 13:53
--- NOTE | 2017-07-15 13:59 | Wound Care Consultation ---
Wound Assessment Wound Assessment : Wound Number: 1 Wound Present on Admission: Yes New Wound: No Status Change of Wound: No Wound Location Body Site Modif: mid Wound Location Body Site: sacral Wound Type: pressure ulcer Shelia Test: Does not Shelia Pressure Ulcer Stage: III Wound Thickness: Full Thickness Wound Length: 2.5 Wound Width: 2.5 Wound Depth: 0.3 Percent of Wound [place]/Red: 100 Wound Drainage Description: Serosanguineous Wound Drainage Amount: Scant Wound Drainage Odor: None/Absent Tissue Surrounding Wound: Macerated Wound General Appearance: Reddened, Draining Wound Comment #1 Sacral stage III pressure ulcer Recommendation -Local wound care per protocol -Optimize nutrition -Offload both heels -Heel protector on both heels -Keep clean and dry -Turn and reposition -Low air loss mattress -Assess and f/u accordingly for any changes LOKESH HARRIS RN Jul 15, 2017 13:59
[2017-07-15 15:23] VITALS: BP 122/60
--- NOTE | 2017-07-15 16:41 | Nephrology Progress Note ---
Assessment/Plan Problem List: (1) Dysphagia (2) GI bleed (3) Bacteremia (4) PEG (percutaneous endoscopic gastrostomy) status (5) Encephalopathy Plan Monitor H&H, transfuse prn Monitor lytes, correct prn G-tube feeding per GI Monitor intake and output Continue abx per ID Continue iron Stool OB pending AM labs Subjective ROS Limited/Unobtainable: Yes Subjective In bed, in no apparent distress Objective Objective Last 24 Hour Vital Signs Date Time Temp Pulse Resp B/P (MAP) Pulse Ox O2 Delivery O2 Flow Rate FiO2 07/15/17 15:23 98.1 60 21 122/60 99 07/15/17 12:00 97.7 62 20 157/67 100 07/15/17 08:00 97.3 62 20 159/104 99 07/15/17 04:00 97.2 59 18 143/92 99 07/15/17 00:00 97.5 56 19 136/70 100 07/15/17 00:00 100 Nasal Cannula 2.0 07/14/17 21:00 97.6 58 19 157/95 98 07/14/17 20:00 98 Nasal Cannula 2.0 07/14/17 20:00 97.6 58 19 157/95 98 Intake and Output 07/14/17 07/15/17 19:00 07:00 Intake Total 910.000 ml 1313.334 ml Balance 910.000 ml 1313.334 ml Free Water 300 ml 200 ml IV Total 250.000 ml 573.334 ml Tube Feeding 360 ml 540 ml # Voids 5 4 # Bowel Movements 1 Laboratory Tests 07/15/17 06:40: White Blood Count 6.2, Red Blood Count 3.46L, Hemoglobin 10.2L, Hematocrit 31.3L , Mean Corpuscular Volume 90, Mean Corpuscular Hemoglobin 29.5, Mean Corpuscular Hemoglobin Concent 32.6, Red Cell Distribution Width 17.9H, Platelet Count 246, Mean Platelet Volume 6.3L, Neutrophils (%) (Auto) 68.6, Lymphocytes (%) (Auto) 17.2L, Monocytes (%) (Auto) 10.2H, Eosinophils (%) (Auto ) 3.3H, Basophils (%) (Auto) 0.8, Sodium Level 138, Potassium Level 3.4L, Chloride Level 102, Carbon Dioxide Level 34H, Anion Gap 3L, Blood Urea Nitrogen 5L, Creatinine 0.4L, Estimat Glomerular Filtration Rate , Glucose Level 89, Calcium Level 8.3L, Troponin I 0.041 07/15/17 13:15: Stool Occult Blood [Pending] Height (Feet): 5 Height (Inches): 4.00 Weight (Pounds): 120 General Appearance: no apparent distress Neck: non-tender Cardiovascular: normal rate Respiratory/Chest: no respiratory distress, no accessory muscle use Abdomen: soft, other - PEG Extremities: non-tender, other - contracture Neurologic: motor weakness, other - non verbal Leyla Jordan N.P. Jul 15, 2017 16:41
--- NOTE | 2017-07-15 18:57 | Consultation ---
History of Present Illness General Date patient seen: Jul 14, 2017 Chief Complaint: Gastrointestinal Bleed Present Illness HPI 82-year-old female, well known to me from previous admission, was discharged recently she was found to have gastrointestinal bleeding due to peptic ulcer disease status post EGD. the pt is confused and pw waxing waning of consciousness, the pt gets agitated Allergies: Coded Allergies: No Known Allergies (Unverified , 06/30/17) Medication History Scheduled Ascorbic Acid* (Vitamin C*), 500 MG JT DAILY, (Reported) Aspirin Ec* (Aspirin Ec*), 81 MG JT DAILY, (Reported) Atorvastatin Calcium* (Atorvastatin Calcium*), 20 MG JT BEDTIME, (Reported) Docusate Sodium* (Docusate Sodium*), 100 MG JT TWICE A DAY, (Reported) Ferrous Sulfate* (Ferrous Sulfate*), 325 MG JT DAILY, (Reported) Menthol/Zinc Oxide (Calmoseptine Ointment), 3.5 GM TP DAILY, (Reported) Pantoprazole* (Pantoprazole*), 30 MG JT BID, (Reported) Petrolatum,White/Lanolin (Vitamin A & D Ointment), 113 GM TP DAILY, (Reported) Rifampin* (Rifadin*), 300 MG JT EVERY 12 HOURS, (Reported) Vitamin D (Vitamin D3), 1,000 UNITS JT DAILY, (Reported) Scheduled PRN Acetaminophen* (Acetaminophen 325MG Tablet*), 650 MG JT Q4H PRN for Fever/ Headache/Mild Pain, (Reported) Patient History Limited by: medical condition History Provided By: Patient, Medical Record, PMD Healthcare decision maker Resuscitation status Do Not Resuscitate Advanced Directive on File Past Medical/Surgical History Past Medical/Surgical History: (1) Hypovolemic shock (2) Septic shock (3) Troponin level elevated (4) Fever (5) Pulmonary edema (6) Acute blood loss anemia (7) Dysphagia (8) Encephalopathy (9) GI bleed (10) HCAP (healthcare-associated pneumonia) (11) Bradycardia (12) Bacteremia (13) Sepsis due to coagulase-negative staphylococcal infection (14) Dehydration (15) Severe malnutrition (16) Severe anemia Review of Systems Psychiatric: Reports: see HPI, prior hx, anxiety Physical Exam General Appearance: no apparent distress, alert, confused, agitated Last 24 Hour Vital Signs Date Time Temp Pulse Resp B/P (MAP) Pulse Ox O2 Delivery O2 Flow Rate FiO2 07/15/17 15:23 98.1 60 21 122/60 99 07/15/17 12:00 97.7 62 20 157/67 100 07/15/17 08:00 97.3 62 20 159/104 99 07/15/17 04:00 97.2 59 18 143/92 99 07/15/17 00:00 97.5 56 19 136/70 100 07/15/17 00:00 100 Nasal Cannula 2.0 07/14/17 21:00 97.6 58 19 157/95 98 07/14/17 20:00 98 Nasal Cannula 2.0 07/14/17 20:00 97.6 58 19 157/95 98 Intake and Output 07/14/17 07/15/17 19:00 07:00 Intake Total 910.000 ml 1313.334 ml Balance 910.000 ml 1313.334 ml Free Water 300 ml 200 ml IV Total 250.000 ml 573.334 ml Tube Feeding 360 ml 540 ml # Voids 5 4 # Bowel Movements 1 Laboratory Tests Test 07/15/17 06:40 07/15/17 13:15 White Blood Count 6.2 K/UL (4.8-10.8) Red Blood Count 3.46 M/UL (4.20-5.40) L Hemoglobin 10.2 G/DL (12.0-16.0) L Hematocrit 31.3 % (37.0-47.0) L Mean Corpuscular Volume 90 FL (80-99) Mean Corpuscular Hemoglobin 29.5 PG (27.0-31.0) Mean Corpuscular Hemoglobin Concent 32.6 G/DL (32.0-36.0) Red Cell Distribution Width 17.9 % (11.6-14.8) H Platelet Count 246 K/UL (150-450) Mean Platelet Volume 6.3 FL (6.5-10.1) L Neutrophils (%) (Auto) 68.6 % (45.0-75.0) Lymphocytes (%) (Auto) 17.2 % (20.0-45.0) L Monocytes (%) (Auto) 10.2 % (1.0-10.0) H Eosinophils (%) (Auto) 3.3 % (0.0-3.0) H Basophils (%) (Auto) 0.8 % (0.0-2.0) Sodium Level 138 MMOL/L (136-145) Potassium Level 3.4 MMOL/L (3.5-5.1) L Chloride Level 102 MMOL/L (98-107) Carbon Dioxide Level 34 MMOL/L (21-32) H Anion Gap 3 mmol/L (5-15) L Blood Urea Nitrogen 5 mg/dL (7-18) L Creatinine 0.4 MG/DL (0.55-1.30) L Estimat Glomerular Filtration Rate mL/min (>60) Glucose Level 89 MG/DL (74-106) Calcium Level 8.3 MG/DL (8.5-10.1) L Troponin I 0.041 ng/mL (0.000-0.056) Stool Occult Blood Pending Height (Feet): 5 Height (Inches): 4.00 Weight (Pounds): 120 Medications Current Medications Medications (Trade) Dose Ordered Sig/Brianna Route PRN Reason Start Time Stop Time Status Last Admin Dose Admin Acetaminophen (Tylenol) 650 mg Q4H PRN JT Fever/Headache/Mild Pain 07/14/17 12:00 08/13/17 11:59 Ascorbic Acid (Vitamin C) 500 mg DAILY GT 07/15/17 09:00 08/14/17 08:59 07/15/17 09:08 Aspirin (ASA) 81 mg DAILY GT 07/15/17 09:00 08/14/17 08:59 07/15/17 09:07 Atorvastatin Calcium (Lipitor) 20 mg BEDTIME GT 07/14/17 21:00 08/13/17 20:59 07/14/17 20:45 Chlorhexidine Gluconate (Karime-Hex 2%) 1 applic DAILY@2000 TOPIC 07/14/17 20:00 08/13/17 19:59 07/14/17 20:46 Docusate Sodium (Colace) 100 mg TWICE A DAY JT 07/14/17 18:00 08/13/17 17:59 07/15/17 17:12 Iron Sucrose 100 mg/Sodium Chloride 60 ml @ 240 mls/hr BEDTIME IV 07/14/17 21:00 07/18/17 21:14 07/14/17 20:46 Lansoprazole (Prevacid) 30 mg DAILY GT 07/16/17 09:00 08/15/17 08:59 Rifampin (Rifadin) 300 mg EVERY 12 HOURS ORAL 07/14/17 13:15 08/13/17 13:14 07/15/17 09:08 Vancomycin HCl (Vanco rx to dose) 1 ea DAILY PRN MISC Per rx protocol 07/14/17 12:00 08/13/17 11:59 Vancomycin/Sodium Chloride 250 ml @ 166.667 mls/hr Q12HR@0100,1300 IVPB 07/14/17 13:00 07/19/17 12:59 07/15/17 12:51 Vitamin D (Vitamin D) 1,000 intlu DAILY GT 07/15/17 09:00 08/14/17 08:59 07/15/17 09:07 Assessment/Plan Status: unchanged Assessment/Plan encephalopathy agitated -cont current meds -ativan Pavel Payan M.D. Jul 15, 2017 18:57
[2017-07-15] MEDS ORDERED: LORazepam 1mg tab ORAL PRN (19:00)
--- NOTE | 2017-07-15 19:01 | General Progress Note ---
Assessment/Plan Status: stable Assessment/Plan Assessment/Plan encephalopathy agitated -cont current meds -ativan prn Subjective Date patient seen: Jul 15, 2017 Neurologic/Psychiatric: Reports: anxiety, depressed, emotional problems Allergies: Coded Allergies: No Known Allergies (Unverified , 06/30/17) Objective Last 24 Hour Vital Signs Date Time Temp Pulse Resp B/P (MAP) Pulse Ox O2 Delivery O2 Flow Rate FiO2 07/15/17 15:23 98.1 60 21 122/60 99 07/15/17 12:00 97.7 62 20 157/67 100 07/15/17 08:00 97.3 62 20 159/104 99 07/15/17 04:00 97.2 59 18 143/92 99 07/15/17 00:00 97.5 56 19 136/70 100 07/15/17 00:00 100 Nasal Cannula 2.0 07/14/17 21:00 97.6 58 19 157/95 98 07/14/17 20:00 98 Nasal Cannula 2.0 07/14/17 20:00 97.6 58 19 157/95 98 Intake and Output 07/14/17 07/15/17 19:00 07:00 Intake Total 910.000 ml 1313.334 ml Balance 910.000 ml 1313.334 ml Free Water 300 ml 200 ml IV Total 250.000 ml 573.334 ml Tube Feeding 360 ml 540 ml # Voids 5 4 # Bowel Movements 1 Laboratory Tests 07/15/17 06:40: White Blood Count 6.2, Red Blood Count 3.46L, Hemoglobin 10.2L, Hematocrit 31.3L , Mean Corpuscular Volume 90, Mean Corpuscular Hemoglobin 29.5, Mean Corpuscular Hemoglobin Concent 32.6, Red Cell Distribution Width 17.9H, Platelet Count 246, Mean Platelet Volume 6.3L, Neutrophils (%) (Auto) 68.6, Lymphocytes (%) (Auto) 17.2L, Monocytes (%) (Auto) 10.2H, Eosinophils (%) (Auto ) 3.3H, Basophils (%) (Auto) 0.8, Sodium Level 138, Potassium Level 3.4L, Chloride Level 102, Carbon Dioxide Level 34H, Anion Gap 3L, Blood Urea Nitrogen 5L, Creatinine 0.4L, Estimat Glomerular Filtration Rate , Glucose Level 89, Calcium Level 8.3L, Troponin I 0.041 07/15/17 13:15: Stool Occult Blood [Pending] Height (Feet): 5 Height (Inches): 4.00 Weight (Pounds): 120 General Appearance: no apparent distress, alert, confused, mild distress, agitated Pavel Juan M.D. Jul 15, 2017 19:00
--- NOTE | 2017-07-15 19:15 | Consultation ---
DATE OF CONSULTATION: 07/15/2017 CARDIOLOGY CONSULTATION REFERRING PHYSICIAN: Oscar Marshall M.D. REASON FOR CONSULTATION: Hypertension and bradycardia. HISTORY OF PRESENT ILLNESS: The patient is an 82-year-old lady who was just discharged from [facility] a few days ago, eventually initially came with hemoglobin of 3. An EGD was done and noted that the patient had a gastric ulcer. The patient was also septic with enterococcus and was discharged to residential facility on IV antibiotic for four more weeks. The patient was brought in for melanotic stool, even though she was not on any anticoagulation. Cardiology consultation was obtained for further evaluation and management. REVIEW OF SYSTEMS: Cannot be obtained due to patient's mental status. PAST MEDICAL HISTORY: As mentioned above. FAMILY HISTORY: Noncontributory. SOCIAL HISTORY: She lives in [facility]. Does not smoke or drink alcohol. PHYSICAL EXAMINATION: VITAL SIGNS: Blood pressure is 137/67 and was as high as 159/104, pulse is 62, respirations 20. HEAD AND NECK: No JVD. LUNGS: Coarse rhonchi. CARDIOVASCULAR: Regular S1 and S2 with no gallop or murmur. ABDOMEN: Soft. EXTREMITIES: No pitting edema. LABORATORY AND DIAGNOSTIC DATA: White count of 6.7, hemoglobin 10.2, hematocrit 31.3, and platelet count of 246. Sodium 138, potassium 3.4, BUN of 5, creatinine 0.4, and glucose of 89. Initial troponin was 0.063 and currently 0.041. ASSESSMENT AND PLAN: 1. Initial troponin leak. Subsequent troponin negative. The patient is nonverbal and her hemoglobin stable at this point. Also, I will continue to follow the patient clinically. 2. Gastrointestinal bleed. Stool OB is pending, further evaluation by Dr. Arana. 3. Status post percutaneous endoscopic gastrostomy placement. 4. Severe anemia. 5. Dehydration. 6. History of gastric bypass surgery. 7. History of paroxysmal atrial fibrillation, currently in sinus rhythm, rate between 50-80. 8. Bradycardia. Lowest was in 50s. We will continue to watch the patient. The patient off any sinus node or AV zoe blocking agents. Thank you very much for allowing me to participate in the care of this patient. Please do not hesitate to contact me for any questions regarding my evaluation. Dayron Garcia M.D. DR: STELLA JOB#: [id number] CC:
[2017-07-15 20:00] VITALS: BP 143/65
[2017-07-15] MEDS: Atorvastatin 20mg tab GT SCH (20:06)
[2017-07-15] MEDS: Dyna-Hex 2% Top Sol 2oz TOPIC SCH (20:06)
[2017-07-15] MEDS: Iron Sucrose 100 MG in NS 55 ML IV SCH (20:07)
--- NOTE | 2017-07-15 20:58 | Infectious Diseases Prog Note ---
Assessment/Plan Problems: (1) Sepsis due to coagulase-negative staphylococcal infection Assessment & Plan: and enterococcus spp, will continue vancomycin and rifampin for synergy and treat for 4 weeks total starting from 07/09 when she cleared her blood , repeated blood culture is pending (2) Acute blood loss anemia Assessment & Plan: suspect due to GI bleeding , monitor H/H transfuse blood as needed, GI is following (3) GI bleed Assessment & Plan: with PUD, S/P EGD last addmission , monitor H/H, transfuse blood as needed, GI is following, screening for C diff is pending Subjective ROS Limited/Unobtainable: Yes Allergies: Coded Allergies: No Known Allergies (Unverified , 06/30/17) Subjective she was comfortable, resting in bed, alert, not febrile Objective Vital Signs Last 24 Hour Vital Signs Date Time Temp Pulse Resp B/P (MAP) Pulse Ox O2 Delivery O2 Flow Rate FiO2 07/15/17 15:23 98.1 60 21 122/60 99 07/15/17 12:00 97.7 62 20 157/67 100 07/15/17 08:00 97.3 62 20 159/104 99 07/15/17 04:00 97.2 59 18 143/92 99 07/15/17 00:00 97.5 56 19 136/70 100 07/15/17 00:00 100 Nasal Cannula 2.0 07/14/17 21:00 97.6 58 19 157/95 98 Height (Feet): 5 Height (Inches): 4.00 Weight (Pounds): 120 General Appearance: WD/WN, no acute distress HEENT: normocephalic, atraumatic, anicteric, mucous membranes moist, PERRL Respiratory/Chest: chest wall non-tender, normal breath sounds, no respiratory distress, no accessory muscle use, decreased breath sounds Cardiovascular: normal peripheral pulses, normal rate, regular rhythm, no gallop/murmur, no JVD Abdomen: normal bowel sounds, soft, non tender, no organomegaly, non distended , no mass, no scars Genitourinary: normal external genitalia Extremities: no cyanosis, no clubbing Skin: no rash, no lesions, ulcers Neurologic/Psychiatric: alert Laboratory Tests Test 07/15/17 06:40 07/15/17 13:15 White Blood Count 6.2 K/UL (4.8-10.8) Red Blood Count 3.46 M/UL (4.20-5.40) L Hemoglobin 10.2 G/DL (12.0-16.0) L Hematocrit 31.3 % (37.0-47.0) L Mean Corpuscular Volume 90 FL (80-99) Mean Corpuscular Hemoglobin 29.5 PG (27.0-31.0) Mean Corpuscular Hemoglobin Concent 32.6 G/DL (32.0-36.0) Red Cell Distribution Width 17.9 % (11.6-14.8) H Platelet Count 246 K/UL (150-450) Mean Platelet Volume 6.3 FL (6.5-10.1) L Neutrophils (%) (Auto) 68.6 % (45.0-75.0) Lymphocytes (%) (Auto) 17.2 % (20.0-45.0) L Monocytes (%) (Auto) 10.2 % (1.0-10.0) H Eosinophils (%) (Auto) 3.3 % (0.0-3.0) H Basophils (%) (Auto) 0.8 % (0.0-2.0) Sodium Level 138 MMOL/L (136-145) Potassium Level 3.4 MMOL/L (3.5-5.1) L Chloride Level 102 MMOL/L (98-107) Carbon Dioxide Level 34 MMOL/L (21-32) H Anion Gap 3 mmol/L (5-15) L Blood Urea Nitrogen 5 mg/dL (7-18) L Creatinine 0.4 MG/DL (0.55-1.30) L Estimat Glomerular Filtration Rate mL/min (>60) Glucose Level 89 MG/DL (74-106) Calcium Level 8.3 MG/DL (8.5-10.1) L Troponin I 0.041 ng/mL (0.000-0.056) Stool Occult Blood Pending Current Medications Medications (Trade) Dose Ordered Sig/Brianna Route PRN Reason Start Time Stop Time Status Last Admin Dose Admin Acetaminophen (Tylenol) 650 mg Q4H PRN JT Fever/Headache/Mild Pain 07/14/17 12:00 08/13/17 11:59 Ascorbic Acid (Vitamin C) 500 mg DAILY GT 07/15/17 09:00 08/14/17 08:59 07/15/17 09:08 Aspirin (ASA) 81 mg DAILY GT 07/15/17 09:00 08/14/17 08:59 07/15/17 09:07 Atorvastatin Calcium (Lipitor) 20 mg BEDTIME GT 07/14/17 21:00 08/13/17 20:59 07/15/17 20:06 Chlorhexidine Gluconate (Karime-Hex 2%) 1 applic DAILY@2000 TOPIC 07/14/17 20:00 08/13/17 19:59 07/15/17 20:06 Docusate Sodium (Colace) 100 mg TWICE A DAY JT 07/14/17 18:00 08/13/17 17:59 07/15/17 17:12 Iron Sucrose 100 mg/Sodium Chloride 60 ml @ 240 mls/hr BEDTIME IV 07/14/17 21:00 07/18/17 21:14 07/15/17 20:07 Lansoprazole (Prevacid) 30 mg DAILY GT 07/16/17 09:00 08/15/17 08:59 Lorazepam (Ativan) 1 mg Q6H PRN ORAL For Anxiety 07/15/17 19:00 07/22/17 18:59 Rifampin (Rifadin) 300 mg EVERY 12 HOURS ORAL 07/14/17 13:15 08/13/17 13:14 07/15/17 20:07 Vancomycin HCl (Vanco rx to dose) 1 ea DAILY PRN MISC Per rx protocol 07/14/17 12:00 08/13/17 11:59 Vancomycin/Sodium Chloride 250 ml @ 166.667 mls/hr Q12HR@0100,1300 IVPB 07/14/17 13:00 07/19/17 12:59 07/15/17 12:51 Vitamin D (Vitamin D) 1,000 intlu DAILY GT 07/15/17 09:00 08/14/17 08:59 07/15/17 09:07 Godwin Weiss M.D. Jul 15, 2017 20:58
[2017-07-16] VITALS: BP 155/77
[2017-07-16] MEDS ORDERED: Vancomycin 500mg in D5W 275ml IVPB SCH (03:00)
[2017-07-16 04:00] VITALS: BP 164/77
[2017-07-16 08:20] VITALS: BP 150/72
[2017-07-16] MEDS: Ascorbic Acid 500mg tab GT SCH (08:36)
[2017-07-16] MEDS: Vitamin D 1000 IU Tab GT SCH (08:36)
[2017-07-16] MEDS: Docusate 100mg/10ml Liq JT SCH ×2 (08:37→17:28)
[2017-07-16] MEDS: Aspirin Baby 81mg GT SCH (08:37)
[2017-07-16 08:42] LABS: BASOPHILS % (AUTO) 0.5 % (0.0-2.0); EOSINOPHILS % (AUTO) 4.1 % (0.0-3.0); HEMATOCRIT 31.5 % (37.0-47.0); HEMOGLOBIN 10.6 G/DL (12.0-16.0); LYMPHOCYTES % (AUTO) 16.8 % (20.0-45.0); MEAN CORPUSCULAR VOLUME 91 FL (80-99); MONOCYTES % (AUTO) 8.5 % (1.0-10.0); NEUTROPHILS % (AUTO) 70.1 % (45.0-75.0); PLATELET COUNT 313 K/UL (150-450); RED BLOOD COUNT 3.48 M/UL (4.20-5.40); RED CELL DISTRIBUTION WIDTH 17.8 % (11.6-14.8); WHITE BLOOD COUNT 7.5 K/UL (4.8-10.8)
[2017-07-16 09:25] LABS: ANION GAP 1 mmol/L (5-15); BLOOD UREA NITROGEN 6 mg/dL (7-18); CALCIUM 8.3 MG/DL (8.5-10.1); CARBON DIOXIDE 35 MMOL/L (21-32); CHLORIDE 101 MMOL/L (98-107); CREATININE 0.4 MG/DL (0.55-1.30); POTASSIUM 3.3 MMOL/L (3.5-5.1); SODIUM 137 MMOL/L (136-145)
[2017-07-16 11:48] VITALS: BP 113/64
--- NOTE | 2017-07-16 11:52 | Infectious Diseases Prog Note ---
Assessment/Plan Problems: (1) Sepsis due to coagulase-negative staphylococcal infection Assessment & Plan: and enterococcus spp, continue vancomycin and rifampin for synergy and treat for 4 weeks total starting from 07/09 when she cleared her blood , repeated blood culture is pending (2) Acute blood loss anemia Assessment & Plan: suspect due to GI bleeding , monitor H/H transfuse blood as needed, GI is following (3) GI bleed Assessment & Plan: with PUD, S/P EGD last addmission , monitor H/H, transfuse blood as needed, GI is following, screening for C diff is pending Subjective ROS Limited/Unobtainable: Yes Allergies: Coded Allergies: No Known Allergies (Unverified , 06/30/17) Subjective she was comfortable, resting in bed, alert, not febrile, no rectal bleeding Objective Vital Signs Last 24 Hour Vital Signs Date Time Temp Pulse Resp B/P (MAP) Pulse Ox O2 Delivery O2 Flow Rate FiO2 07/16/17 11:48 97.6 59 21 113/64 97 07/16/17 08:20 97.8 56 21 150/72 99 07/16/17 04:00 97.4 54 19 164/77 100 07/16/17 04:00 100 Nasal Cannula 2.0 07/16/17 00:00 97.3 54 19 155/77 95 07/16/17 00:00 95 Nasal Cannula 2.0 07/15/17 20:00 100 Nasal Cannula 2.0 07/15/17 20:00 97.5 57 19 143/65 100 07/15/17 15:23 98.1 60 21 122/60 99 07/15/17 12:00 97.7 62 20 157/67 100 Height (Feet): 5 Height (Inches): 4.00 Weight (Pounds): 120 General Appearance: WD/WN, no acute distress HEENT: normocephalic, atraumatic, anicteric, mucous membranes moist, EOMI, pharynx normal Respiratory/Chest: chest wall non-tender, lungs clear, normal breath sounds, no respiratory distress, no accessory muscle use Cardiovascular: normal peripheral pulses, normal rate, regular rhythm, no gallop/murmur, no JVD Abdomen: normal bowel sounds, soft, non tender, no organomegaly, non distended , no mass, no scars Extremities: no cyanosis, no clubbing Skin: no rash, no lesions, no ulcers Neurologic/Psychiatric: alert Musculoskeletal: normal muscle bulk Microbiology Date/Time Source Procedure Growth Status 07/14/17 14:40 Blood Blood Culture - Preliminary NO GROWTH AFTER 24 HOURS Resulted 07/14/17 12:15 Blood Blood Culture - Preliminary NO GROWTH AFTER 24 HOURS Resulted 07/14/17 03:30 Nasal Nares MRSA Culture - Final NO METHICILLIN RESISTANT STAPH AUREUS... Complete 07/15/17 13:15 Stool Clostridium difficile Toxin Assay - Final Complete 07/14/17 03:30 Rectum VRE Culture - Final Enterococcus Faecium Complete Laboratory Tests Test 07/15/17 13:15 07/16/17 01:15 07/16/17 06:45 Stool Occult Blood Pending Vancomycin Level Trough 13.9 ug/mL (5.0-12.0) H White Blood Count 7.5 K/UL (4.8-10.8) Red Blood Count 3.48 M/UL (4.20-5.40) L Hemoglobin 10.6 G/DL (12.0-16.0) L Hematocrit 31.5 % (37.0-47.0) L Mean Corpuscular Volume 91 FL (80-99) Mean Corpuscular Hemoglobin 30.3 PG (27.0-31.0) Mean Corpuscular Hemoglobin Concent 33.5 G/DL (32.0-36.0) Red Cell Distribution Width 17.8 % (11.6-14.8) H Platelet Count 313 K/UL (150-450) Mean Platelet Volume 6.6 FL (6.5-10.1) Neutrophils (%) (Auto) 70.1 % (45.0-75.0) Lymphocytes (%) (Auto) 16.8 % (20.0-45.0) L Monocytes (%) (Auto) 8.5 % (1.0-10.0) Eosinophils (%) (Auto) 4.1 % (0.0-3.0) H Basophils (%) (Auto) 0.5 % (0.0-2.0) Sodium Level 137 MMOL/L (136-145) Potassium Level 3.3 MMOL/L (3.5-5.1) L Chloride Level 101 MMOL/L (98-107) Carbon Dioxide Level 35 MMOL/L (21-32) H Anion Gap 1 mmol/L (5-15) L Blood Urea Nitrogen 6 mg/dL (7-18) L Creatinine 0.4 MG/DL (0.55-1.30) L Estimat Glomerular Filtration Rate mL/min (>60) Glucose Level 104 MG/DL (74-106) Calcium Level 8.3 MG/DL (8.5-10.1) L Current Medications Medications (Trade) Dose Ordered Sig/Brianna Route PRN Reason Start Time Stop Time Status Last Admin Dose Admin Acetaminophen (Tylenol) 650 mg Q4H PRN JT Fever/Headache/Mild Pain 07/14/17 12:00 08/13/17 11:59 Ascorbic Acid (Vitamin C) 500 mg DAILY GT 07/15/17 09:00 08/14/17 08:59 07/16/17 08:36 Aspirin (ASA) 81 mg DAILY GT 07/15/17 09:00 08/14/17 08:59 07/15/17 09:07 Atorvastatin Calcium (Lipitor) 20 mg BEDTIME GT 07/14/17 21:00 08/13/17 20:59 07/15/17 20:06 Chlorhexidine Gluconate (Karime-Hex 2%) 1 applic DAILY@2000 TOPIC 07/14/17 20:00 08/13/17 19:59 07/15/17 20:06 Docusate Sodium (Colace) 100 mg TWICE A DAY JT 07/14/17 18:00 08/13/17 17:59 07/16/17 08:37 Iron Sucrose 100 mg/Sodium Chloride 60 ml @ 240 mls/hr BEDTIME IV 07/14/17 21:00 07/18/17 21:14 07/15/17 20:07 Lansoprazole (Prevacid) 30 mg DAILY GT 07/16/17 09:00 08/15/17 08:59 07/16/17 08:36 Lorazepam (Ativan) 1 mg Q6H PRN ORAL For Anxiety 07/15/17 19:00 07/22/17 18:59 Rifampin (Rifadin) 300 mg EVERY 12 HOURS ORAL 07/14/17 13:15 08/13/17 13:14 07/16/17 08:36 Vancomycin HCl (Vanco rx to dose) 1 ea DAILY PRN MISC Per rx protocol 07/14/17 12:00 08/13/17 11:59 Vancomycin/Sodium Chloride 250 ml @ 166.667 mls/hr Q12H IVPB 07/16/17 12:00 07/21/17 11:59 Vitamin D (Vitamin D) 1,000 intlu DAILY GT 07/15/17 09:00 08/14/17 08:59 07/16/17 08:36 Godwin Weiss M.D. Jul 16, 2017 11:52
[2017-07-16] MEDS: Vancomycin 750mg/NS 250ml IVPB SCH (12:41)
--- NOTE | 2017-07-16 12:47 | GI Progress Note ---
Assessment/Plan Problems: (1) PEG (percutaneous endoscopic gastrostomy) status ICD Codes: Z93.1 - Gastrostomy status SNOMED: 689947691, 696734332 (2) GI bleed ICD Codes: K92.2 - Gastrointestinal hemorrhage, unspecified SNOMED: 72165459 Qualifiers: Qualified Codes: K92.2 - Gastrointestinal hemorrhage, unspecified (3) Dysphagia ICD Codes: R13.10 - Dysphagia, unspecified SNOMED: 76121804, 967152463 (4) Severe malnutrition ICD Codes: E43 - Unspecified severe protein-calorie malnutrition SNOMED: 52839029 (5) Severe anemia ICD Codes: D64.9 - Anemia, unspecified SNOMED: 722927371 (6) Dehydration ICD Codes: E86.0 - Dehydration SNOMED: 63367400 Status: stable Status Narrative Discussed with Dr. Arana. Assessment/Plan hx of gastric bypass stable H&H s/p EGD >> 1. Gastric bypass. 2. Small gastric polyps without any obvious bleeding. 3. Status post change of the J-tube. GJ feedings per RD prn transfusions fu OB stool r/o GI bleed ppi iv iron will consider colonoscopy in emergent case >> stable H&H fu labs Subjective Subjective limited Objective Last 24 Hour Vital Signs Date Time Temp Pulse Resp B/P (MAP) Pulse Ox O2 Delivery O2 Flow Rate FiO2 07/16/17 11:48 97.6 59 21 113/64 97 07/16/17 08:20 97.8 56 21 150/72 99 07/16/17 04:00 97.4 54 19 164/77 100 07/16/17 04:00 100 Nasal Cannula 2.0 07/16/17 00:00 97.3 54 19 155/77 95 07/16/17 00:00 95 Nasal Cannula 2.0 07/15/17 20:00 100 Nasal Cannula 2.0 07/15/17 20:00 97.5 57 19 143/65 100 07/15/17 15:23 98.1 60 21 122/60 99 Intake and Output 07/15/17 07/16/17 19:00 07:00 Intake Total 1090.000 ml 1120 ml Balance 1090.000 ml 1120 ml Intake Oral 0 ml Free Water 300 ml 200 ml IV Total 250.000 ml 515 ml Tube Feeding 540 ml 405 ml # Voids 3 4 # Bowel Movements 2 Laboratory Tests Test 07/15/17 13:15 07/16/17 01:15 07/16/17 06:45 Stool Occult Blood Pending Vancomycin Level Trough 13.9 ug/mL (5.0-12.0) H White Blood Count 7.5 K/UL (4.8-10.8) Red Blood Count 3.48 M/UL (4.20-5.40) L Hemoglobin 10.6 G/DL (12.0-16.0) L Hematocrit 31.5 % (37.0-47.0) L Mean Corpuscular Volume 91 FL (80-99) Mean Corpuscular Hemoglobin 30.3 PG (27.0-31.0) Mean Corpuscular Hemoglobin Concent 33.5 G/DL (32.0-36.0) Red Cell Distribution Width 17.8 % (11.6-14.8) H Platelet Count 313 K/UL (150-450) Mean Platelet Volume 6.6 FL (6.5-10.1) Neutrophils (%) (Auto) 70.1 % (45.0-75.0) Lymphocytes (%) (Auto) 16.8 % (20.0-45.0) L Monocytes (%) (Auto) 8.5 % (1.0-10.0) Eosinophils (%) (Auto) 4.1 % (0.0-3.0) H Basophils (%) (Auto) 0.5 % (0.0-2.0) Sodium Level 137 MMOL/L (136-145) Potassium Level 3.3 MMOL/L (3.5-5.1) L Chloride Level 101 MMOL/L (98-107) Carbon Dioxide Level 35 MMOL/L (21-32) H Anion Gap 1 mmol/L (5-15) L Blood Urea Nitrogen 6 mg/dL (7-18) L Creatinine 0.4 MG/DL (0.55-1.30) L Estimat Glomerular Filtration Rate mL/min (>60) Glucose Level 104 MG/DL (74-106) Calcium Level 8.3 MG/DL (8.5-10.1) L Microbiology Date/Time Source Procedure Growth Status 07/15/17 13:15 Stool Clostridium difficile Toxin Assay - Final Complete Height (Feet): 5 Height (Inches): 4.00 Weight (Pounds): 120 General Appearance: no apparent distress, thin Cardiovascular: normal rate Respiratory/Chest: normal breath sounds, no accessory muscle use Abdominal Exam: site - c/d/i Amira Rios N.P. Jul 16, 2017 12:47
--- NOTE | 2017-07-16 15:25 | Cardiology Report ---
APPROVED REPORT EKG Measurement Heart [id number] [id number] Normal sinus rhythm Anterior infarct, age undetermined Abnormal ECG
[2017-07-16 16:00] VITALS: BP 147/75
--- NOTE | 2017-07-16 17:30 | Progress Note ---
DATE: 07/16/2017 SUBJECTIVE: The patient is calm. Continues to have episodes of agitation, confused, disorganized, unable to provide any history and has cognitive impairment. MENTAL STATUS EXAMINATION: The patient is alert and oriented times self, confused, disoriented. Mood is neutral. Affect is constricted, congruent with mood. Thought process is concrete. Thought content, no suicidal or homicidal ideations. ASSESSMENT: 1. Encephalopathy. 2. Dementia. PLAN: We will continue current medication. Provide the patient with reality orientation and supportive therapy. Pavel Juan M.D. DR: KASI JOB#: [id number] CC:
--- NOTE | 2017-07-16 17:40 | Cardiac Electrophysiology PN ---
Assessment/Plan Assessment/Plan 1. Initial troponin leak. Subsequent troponin negative. The patient is nonverbal and her hemoglobin stable at this point. 2. Gastrointestinal bleed. Stool OB is still pending, f/u by Dr. Arana. 3. Status post percutaneous endoscopic gastrostomy placement. 4. Severe anemia. 5. Dehydration. 6. History of gastric bypass surgery. 7. History of paroxysmal atrial fibrillation, currently in sinus rhythm, rate between 50-80. 8. Bradycardia. Lowest was in 50s. The patient off any sinus node or AV zoe blocking agents. DW RN Subjective Subjective No new events. Non verbal in NAD Objective Last 24 Hour Vital Signs Date Time Temp Pulse Resp B/P (MAP) Pulse Ox O2 Delivery O2 Flow Rate FiO2 07/16/17 16:00 97.7 20 147/75 92 97.7 07/16/17 11:48 97.6 59 21 113/64 97 07/16/17 08:20 97.8 56 21 150/72 99 07/16/17 04:00 97.4 54 19 164/77 100 07/16/17 04:00 100 Nasal Cannula 2.0 07/16/17 00:00 97.3 54 19 155/77 95 07/16/17 00:00 95 Nasal Cannula 2.0 07/15/17 20:00 100 Nasal Cannula 2.0 07/15/17 20:00 97.5 57 19 143/65 100 Intake and Output 07/15/17 07/16/17 19:00 07:00 Intake Total 1090.000 ml 1165 ml Balance 1090.000 ml 1165 ml Intake Oral 0 ml Free Water 300 ml 200 ml IV Total 250.000 ml 515 ml Tube Feeding 540 ml 450 ml # Voids 3 4 # Bowel Movements 2 Laboratory Tests Test 07/16/17 01:15 07/16/17 06:45 Vancomycin Level Trough 13.9 ug/mL (5.0-12.0) H White Blood Count 7.5 K/UL (4.8-10.8) Red Blood Count 3.48 M/UL (4.20-5.40) L Hemoglobin 10.6 G/DL (12.0-16.0) L Hematocrit 31.5 % (37.0-47.0) L Mean Corpuscular Volume 91 FL (80-99) Mean Corpuscular Hemoglobin 30.3 PG (27.0-31.0) Mean Corpuscular Hemoglobin Concent 33.5 G/DL (32.0-36.0) Red Cell Distribution Width 17.8 % (11.6-14.8) H Platelet Count 313 K/UL (150-450) Mean Platelet Volume 6.6 FL (6.5-10.1) Neutrophils (%) (Auto) 70.1 % (45.0-75.0) Lymphocytes (%) (Auto) 16.8 % (20.0-45.0) L Monocytes (%) (Auto) 8.5 % (1.0-10.0) Eosinophils (%) (Auto) 4.1 % (0.0-3.0) H Basophils (%) (Auto) 0.5 % (0.0-2.0) Sodium Level 137 MMOL/L (136-145) Potassium Level 3.3 MMOL/L (3.5-5.1) L Chloride Level 101 MMOL/L (98-107) Carbon Dioxide Level 35 MMOL/L (21-32) H Anion Gap 1 mmol/L (5-15) L Blood Urea Nitrogen 6 mg/dL (7-18) L Creatinine 0.4 MG/DL (0.55-1.30) L Estimat Glomerular Filtration Rate mL/min (>60) Glucose Level 104 MG/DL (74-106) Calcium Level 8.3 MG/DL (8.5-10.1) L Microbiology Date/Time Source Procedure Growth Status 07/14/17 14:40 Blood Blood Culture - Preliminary NO GROWTH AFTER 24 HOURS Resulted 07/14/17 12:15 Blood Blood Culture - Preliminary NO GROWTH AFTER 24 HOURS Resulted 07/14/17 03:30 Nasal Nares MRSA Culture - Final NO METHICILLIN RESISTANT STAPH AUREUS... Complete 07/15/17 13:15 Stool Clostridium difficile Toxin Assay - Final Complete 07/14/17 03:30 Rectum VRE Culture - Final Enterococcus Faecium Complete Objective HEAD AND NECK: No JVD. LUNGS: Coarse rhonchi. CARDIOVASCULAR: Regular S1 and S2 with no gallop or murmur. ABDOMEN: Soft. EXTREMITIES: No pitting edema. GEOFFREY AGUERO Jul 16, 2017 17:40
[2017-07-16 20:00] VITALS: BP 149/64
[2017-07-16] MEDS: Dyna-Hex 2% Top Sol 2oz TOPIC SCH (20:58)
[2017-07-16] MEDS: Iron Sucrose 100 MG in NS 55 ML IV SCH (20:58)
[2017-07-16] MEDS: Atorvastatin 20mg tab GT SCH (20:58)
--- NOTE | 2017-07-16 22:43 | Nephrology Progress Note ---
Assessment/Plan Problem List: (1) Bacteremia (2) Sepsis due to coagulase-negative staphylococcal infection (3) GI bleed (4) Dysphagia (5) Encephalopathy (6) Bradycardia Plan F/u repeat BCx. Continue vanco and rifampin for 4 wks from 07/09. D/c plan soon. Monitor H/H. Subjective Subjective late entry for 07/15 - no acute events. Objective Objective Last 24 Hour Vital Signs Date Time Temp Pulse Resp B/P (MAP) Pulse Ox O2 Delivery O2 Flow Rate FiO2 07/16/17 20:00 97.4 56 19 149/64 100 97.4 07/16/17 16:00 97.7 20 147/75 92 97.7 07/16/17 11:48 97.6 59 21 113/64 97 07/16/17 08:20 97.8 56 21 150/72 99 07/16/17 04:00 97.4 54 19 164/77 100 07/16/17 04:00 100 Nasal Cannula 2.0 07/16/17 00:00 97.3 54 19 155/77 95 07/16/17 00:00 95 Nasal Cannula 2.0 Intake and Output 07/15/17 07/16/17 19:00 07:00 Intake Total 1090.000 ml 1165 ml Balance 1090.000 ml 1165 ml Intake Oral 0 ml Free Water 300 ml 200 ml IV Total 250.000 ml 515 ml Tube Feeding 540 ml 450 ml # Voids 3 4 # Bowel Movements 2 Laboratory Tests 07/16/17 01:15: Vancomycin Level Trough 13.9H 07/16/17 06:45: White Blood Count 7.5, Red Blood Count 3.48L, Hemoglobin 10.6L, Hematocrit 31.5L , Mean Corpuscular Volume 91, Mean Corpuscular Hemoglobin 30.3, Mean Corpuscular Hemoglobin Concent 33.5, Red Cell Distribution Width 17.8H, Platelet Count 313, Mean Platelet Volume 6.6, Neutrophils (%) (Auto) 70.1, Lymphocytes (%) (Auto) 16.8L, Monocytes (%) (Auto) 8.5, Eosinophils (%) (Auto) 4.1H, Basophils (%) (Auto) 0.5, Sodium Level 137, Potassium Level 3.3L, Chloride Level 101, Carbon Dioxide Level 35H, Anion Gap 1L, Blood Urea Nitrogen 6L, Creatinine 0.4L, Estimat Glomerular Filtration Rate , Glucose Level 104, Calcium Level 8.3L Height (Feet): 5 Height (Inches): 4.00 Weight (Pounds): 120 General Appearance: no apparent distress Cardiovascular: regularly irregular Respiratory/Chest: lungs clear Abdomen: non tender, soft Extremities: non-pitting Neurologic: alert, responsive JAY EVANGELISTA Jul 16, 2017 22:43
--- NOTE | 2017-07-16 22:44 | Nephrology Progress Note ---
Assessment/Plan Problem List: (1) Bacteremia (2) Sepsis due to coagulase-negative staphylococcal infection (3) GI bleed (4) Dysphagia (5) Encephalopathy (6) Bradycardia Plan F/u BCx NGTD. Continue vanco and rifampin for 4 wks from 07/09. D/c plan in am. Monitor H/H. Subjective Subjective comfortable. Objective Objective Last 24 Hour Vital Signs Date Time Temp Pulse Resp B/P (MAP) Pulse Ox O2 Delivery O2 Flow Rate FiO2 07/16/17 20:00 97.4 56 19 149/64 100 97.4 07/16/17 16:00 97.7 20 147/75 92 97.7 07/16/17 11:48 97.6 59 21 113/64 97 07/16/17 08:20 97.8 56 21 150/72 99 07/16/17 04:00 97.4 54 19 164/77 100 07/16/17 04:00 100 Nasal Cannula 2.0 07/16/17 00:00 97.3 54 19 155/77 95 07/16/17 00:00 95 Nasal Cannula 2.0 Intake and Output 07/15/17 07/16/17 19:00 07:00 Intake Total 1090.000 ml 1165 ml Balance 1090.000 ml 1165 ml Intake Oral 0 ml Free Water 300 ml 200 ml IV Total 250.000 ml 515 ml Tube Feeding 540 ml 450 ml # Voids 3 4 # Bowel Movements 2 Laboratory Tests 07/16/17 01:15: Vancomycin Level Trough 13.9H 07/16/17 06:45: White Blood Count 7.5, Red Blood Count 3.48L, Hemoglobin 10.6L, Hematocrit 31.5L , Mean Corpuscular Volume 91, Mean Corpuscular Hemoglobin 30.3, Mean Corpuscular Hemoglobin Concent 33.5, Red Cell Distribution Width 17.8H, Platelet Count 313, Mean Platelet Volume 6.6, Neutrophils (%) (Auto) 70.1, Lymphocytes (%) (Auto) 16.8L, Monocytes (%) (Auto) 8.5, Eosinophils (%) (Auto) 4.1H, Basophils (%) (Auto) 0.5, Sodium Level 137, Potassium Level 3.3L, Chloride Level 101, Carbon Dioxide Level 35H, Anion Gap 1L, Blood Urea Nitrogen 6L, Creatinine 0.4L, Estimat Glomerular Filtration Rate , Glucose Level 104, Calcium Level 8.3L Height (Feet): 5 Height (Inches): 4.00 Weight (Pounds): 120 General Appearance: no apparent distress Cardiovascular: regularly irregular Respiratory/Chest: lungs clear Abdomen: non tender, soft Extremities: non-pitting JAY EVANGELISTA Jul 16, 2017 22:44
[2017-07-17] VITALS: BP 146/71
[2017-07-17] MEDS: Vancomycin 750mg/NS 250ml IVPB SCH ×2 (00:15→11:58)
[2017-07-17 04:00] VITALS: BP 101/71
[2017-07-17 06:28] LABS: BASOPHILS % (AUTO) 0.5 % (0.0-2.0); EOSINOPHILS % (AUTO) 3.3 % (0.0-3.0); HEMATOCRIT 28.7 % (37.0-47.0); HEMOGLOBIN 9.6 G/DL (12.0-16.0); LYMPHOCYTES % (AUTO) 8.3 % (20.0-45.0); MEAN CORPUSCULAR VOLUME 91 FL (80-99); MONOCYTES % (AUTO) 7.6 % (1.0-10.0); NEUTROPHILS % (AUTO) 80.3 % (45.0-75.0); PLATELET COUNT 277 K/UL (150-450); RED BLOOD COUNT 3.15 M/UL (4.20-5.40); RED CELL DISTRIBUTION WIDTH 18.5 % (11.6-14.8); WHITE BLOOD COUNT 7.2 K/UL (4.8-10.8)
[2017-07-17 07:32] LABS: ANION GAP 5 mmol/L (5-15); BLOOD UREA NITROGEN 6 mg/dL (7-18); CALCIUM 7.3 MG/DL (8.5-10.1); CARBON DIOXIDE 30 MMOL/L (21-32); CHLORIDE 106 MMOL/L (98-107); CREATININE 0.3 MG/DL (0.55-1.30); PHOSPHORUS 2.1 MG/DL (2.5-4.9); POTASSIUM 3.1 MMOL/L (3.5-5.1); SODIUM 141 MMOL/L (136-145)
[2017-07-17 08:10] VITALS: BP 112/70
[2017-07-17] MEDS: Vitamin D 1000 IU Tab GT SCH (08:51)
[2017-07-17] MEDS: Ascorbic Acid 500mg tab GT SCH (08:51)
[2017-07-17] MEDS: Docusate 100mg/10ml Liq JT SCH ×2 (08:51→08:52)
[2017-07-17] MEDS: Aspirin Baby 81mg GT SCH (08:51)
[2017-07-17] MEDS ORDERED: Phospha 250 Neutral tab ORAL ONE (10:00)
[2017-07-17] MEDS ORDERED: Magnesium Oxide 400mg tab ORAL ONE (10:00)
[2017-07-17] MEDS ORDERED: VANCOMYCIN750 MG/250 IV (10:03)
--- NOTE | 2017-07-17 10:33 | GI Progress Note ---
Assessment/Plan Problems: (1) PEG (percutaneous endoscopic gastrostomy) status ICD Codes: Z93.1 - Gastrostomy status SNOMED: 710428610, 355698941 (2) GI bleed ICD Codes: K92.2 - Gastrointestinal hemorrhage, unspecified SNOMED: 81603392 Qualifiers: Qualified Codes: K92.2 - Gastrointestinal hemorrhage, unspecified (3) Dysphagia ICD Codes: R13.10 - Dysphagia, unspecified SNOMED: 05683752, 800952949 (4) Severe malnutrition ICD Codes: E43 - Unspecified severe protein-calorie malnutrition SNOMED: 69679286 (5) Severe anemia ICD Codes: D64.9 - Anemia, unspecified SNOMED: 905606070 (6) Dehydration ICD Codes: E86.0 - Dehydration SNOMED: 75237582 Status: stable Status Narrative Discussed with Dr. Arana. Assessment/Plan hx of gastric bypass stable H&H s/p EGD >> 1. Gastric bypass. 2. Small gastric polyps without any obvious bleeding. 3. Status post change of the J-tube. OBS positive GJ feedings per RD prn transfusions ppi iv iron will consider colonoscopy in emergent case >> stable H&H fu labs Subjective Subjective limited Objective Last 24 Hour Vital Signs Date Time Temp Pulse Resp B/P (MAP) Pulse Ox O2 Delivery O2 Flow Rate FiO2 07/17/17 08:10 97.6 79 21 112/70 94 Nasal Cannula 2.0 97.6 07/17/17 04:00 97.2 54 20 101/71 92 97.2 07/17/17 00:00 97.3 53 20 146/71 100 97.3 07/16/17 20:00 97.4 56 19 149/64 100 97.4 07/16/17 16:00 97.7 20 147/75 92 97.7 07/16/17 11:48 97.6 59 21 113/64 97 Intake and Output 07/16/17 07/17/17 19:00 07:00 Intake Total 795 ml 310.000 ml Balance 795 ml 310.000 ml Intake Oral 0 ml Free Water 300 ml IV Total 310.000 ml Tube Feeding 495 ml # Voids 6 4 # Bowel Movements 1 Laboratory Tests Test 07/17/17 06:00 White Blood Count 7.2 K/UL (4.8-10.8) Red Blood Count 3.15 M/UL (4.20-5.40) L Hemoglobin 9.6 G/DL (12.0-16.0) L Hematocrit 28.7 % (37.0-47.0) L Mean Corpuscular Volume 91 FL (80-99) Mean Corpuscular Hemoglobin 30.4 PG (27.0-31.0) Mean Corpuscular Hemoglobin Concent 33.4 G/DL (32.0-36.0) Red Cell Distribution Width 18.5 % (11.6-14.8) H Platelet Count 277 K/UL (150-450) Mean Platelet Volume 6.4 FL (6.5-10.1) L Neutrophils (%) (Auto) 80.3 % (45.0-75.0) H Lymphocytes (%) (Auto) 8.3 % (20.0-45.0) L Monocytes (%) (Auto) 7.6 % (1.0-10.0) Eosinophils (%) (Auto) 3.3 % (0.0-3.0) H Basophils (%) (Auto) 0.5 % (0.0-2.0) Sodium Level 141 MMOL/L (136-145) Potassium Level 3.1 MMOL/L (3.5-5.1) L Chloride Level 106 MMOL/L (98-107) Carbon Dioxide Level 30 MMOL/L (21-32) Anion Gap 5 mmol/L (5-15) Blood Urea Nitrogen 6 mg/dL (7-18) L Creatinine 0.3 MG/DL (0.55-1.30) L Estimat Glomerular Filtration Rate mL/min (>60) Glucose Level 109 MG/DL (74-106) H Calcium Level 7.3 MG/DL (8.5-10.1) L Phosphorus Level 2.1 MG/DL (2.5-4.9) L Magnesium Level 1.5 MG/DL (1.8-2.4) L Height (Feet): 5 Height (Inches): 4.00 Weight (Pounds): 120 General Appearance: WD/WN, no apparent distress, alert, thin Cardiovascular: normal rate Respiratory/Chest: normal breath sounds, no respiratory distress Abdominal Exam: normal bowel sounds, non tender, soft, GT site, other - GJ flushed Extremities: non-tender Rios,Amira Ervin N.P. Jul 17, 2017 10:33
[2017-07-17] MEDS ORDERED: Potassium Phosphate 30 MM in NS 275 ML IV ONE (11:00)
[2017-07-17 12:15] VITALS: BP 149/69
[2017-07-17] MEDS ORDERED: NS 275ml ONE (14:07)
[2017-07-17] MEDS ORDERED: Tubing IV Secondary IV ONE (14:07)
--- NOTE | 2017-07-17 14:50 | Infectious Diseases Prog Note ---
Assessment/Plan Problems: (1) Sepsis due to coagulase-negative staphylococcal infection Assessment & Plan: and enterococcus spp, continue vancomycin and rifampin for synergy and treat for 4 weeks total starting from 07/09 when she cleared her blood , repeated blood culture is negative here so far. EOT 08/06/17 (2) Acute blood loss anemia Assessment & Plan: suspect due to GI bleeding , monitor H/H transfuse blood as needed, GI is following (3) GI bleed Assessment & Plan: with PUD, S/P EGD last addmission , monitor H/H, transfuse blood as needed, GI is following, screening for C diff is NEGATIVE Subjective ROS Limited/Unobtainable: Yes Allergies: Coded Allergies: No Known Allergies (Unverified , 06/30/17) Subjective she was comfortable, resting in bed, alert, not febrile, no rectal bleeding Objective Vital Signs Last 24 Hour Vital Signs Date Time Temp Pulse Resp B/P (MAP) Pulse Ox O2 Delivery O2 Flow Rate FiO2 07/17/17 12:15 98.4 63 18 149/69 97 Nasal Cannula 2.0 98.4 07/17/17 08:10 97.6 79 21 112/70 94 Nasal Cannula 2.0 97.6 07/17/17 04:00 97.2 54 20 101/71 92 97.2 07/17/17 00:00 97.3 53 20 146/71 100 97.3 07/16/17 20:00 97.4 56 19 149/64 100 97.4 07/16/17 16:00 97.7 20 147/75 92 97.7 Height (Feet): 5 Height (Inches): 4.00 Weight (Pounds): 120 General Appearance: WD/WN, no acute distress HEENT: normocephalic, atraumatic, anicteric, mucous membranes moist, PERRL Respiratory/Chest: chest wall non-tender, lungs clear, normal breath sounds, no respiratory distress, no accessory muscle use Cardiovascular: normal peripheral pulses, normal rate, regular rhythm, no gallop/murmur, no JVD Abdomen: normal bowel sounds, soft, non tender, no organomegaly, non distended , no mass, no scars Extremities: no cyanosis, no clubbing Skin: no rash, no lesions, ulcers Neurologic/Psychiatric: alert Microbiology Date/Time Source Procedure Growth Status 07/15/17 13:15 Stool Clostridium difficile Toxin Assay - Final Complete Laboratory Tests Test 07/17/17 06:00 White Blood Count 7.2 K/UL (4.8-10.8) Red Blood Count 3.15 M/UL (4.20-5.40) L Hemoglobin 9.6 G/DL (12.0-16.0) L Hematocrit 28.7 % (37.0-47.0) L Mean Corpuscular Volume 91 FL (80-99) Mean Corpuscular Hemoglobin 30.4 PG (27.0-31.0) Mean Corpuscular Hemoglobin Concent 33.4 G/DL (32.0-36.0) Red Cell Distribution Width 18.5 % (11.6-14.8) H Platelet Count 277 K/UL (150-450) Mean Platelet Volume 6.4 FL (6.5-10.1) L Neutrophils (%) (Auto) 80.3 % (45.0-75.0) H Lymphocytes (%) (Auto) 8.3 % (20.0-45.0) L Monocytes (%) (Auto) 7.6 % (1.0-10.0) Eosinophils (%) (Auto) 3.3 % (0.0-3.0) H Basophils (%) (Auto) 0.5 % (0.0-2.0) Sodium Level 141 MMOL/L (136-145) Potassium Level 3.1 MMOL/L (3.5-5.1) L Chloride Level 106 MMOL/L (98-107) Carbon Dioxide Level 30 MMOL/L (21-32) Anion Gap 5 mmol/L (5-15) Blood Urea Nitrogen 6 mg/dL (7-18) L Creatinine 0.3 MG/DL (0.55-1.30) L Estimat Glomerular Filtration Rate mL/min (>60) Glucose Level 109 MG/DL (74-106) H Calcium Level 7.3 MG/DL (8.5-10.1) L Phosphorus Level 2.1 MG/DL (2.5-4.9) L Magnesium Level 1.5 MG/DL (1.8-2.4) L Godwin Weiss M.D. Jul 17, 2017 14:50
--- NOTE | 2017-07-17 19:30 | Progress Note ---
DATE: 07/17/2017 SUBJECTIVE: The patient is presenting with anxiety and agitation. At times, however calm during my evaluation. No behavior issues. At times, attempts to come out of bed and has cognitive impairment. MENTAL STATUS EXAMINATION: The patient is alert and oriented times self, confused, and disoriented. Mood is neutral. Affect is flat. Thought process, there is a paucity of thought content. Thought content, no suicidal or homicidal ideations. ASSESSMENT: Encephalopathy. PLAN: We will continue current medication. Provide the patient with supportive therapy and reality orientation. Pavel Juan M.D. DR: KASI JOB#: [id number] CC:
--- NOTE | 2017-07-18 16:37 | Discharge Summary ---
Discharge Summary Hospital Course Date of Admission Jul 14, 2017 at 04:50 Date of Discharge Jul 17, 2017 at 14:08 Admitting Diagnosis Lower gastro-intestinal bleed HPI Jesús Neri is a 82 year old female who was admitted on Jul 14, 2017 at 04:50 for Lower Gastro-Intestinal Bleed Hospital Course [id number] Discharge Discharge Disposition Patient was discharged to SNF/Subacute Facility(03) Discharge Diagnoses: Romy Diaz NP Jul 18, 2017 16:37
--- NOTE | 2017-07-19 01:02 | Discharge Summary 2 SIG ---
DATE OF ADMISSION: 07/14/2017 DATE OF DISCHARGE: 07/17/2017 CONSULTANTS: 1. Pavel Juan M.D. 2. Godwin Weiss M.D. 3. Darien Arana M.D. 4. Dayron Garcia M.D. BRIEF HOSPITAL COURSE: The patient is an 82-year-old female, who was just discharged a couple of days ago, initially came in with hemoglobin of 3 on last admission and esophagogastroduodenoscopy was done and was noted to have a gastric ulcer. During that time, she also had septicemia with coagulase-negative Staph and Enterococcus. [facility] was [facility] to [facility] to continue vancomycin and rifampin for four more weeks. She then presented to the hospital for chief complaint of melanotic stools with one day onset. She is not on any anticoagulation. Hemoglobin on evaluation was 11. She has past medical history significant for chronic obstructive pulmonary disease, dysphagia, status post recent percutaneous endoscopic gastrostomy placement, history of atrial fibrillation, and gastric bypass. She was followed by Infectious Disease specialist. The patient was resumed on her rifampin and vancomycin. She was continued on her GJ feedings and was given proton pump inhibitors and IV iron. The patient has episodes of agitation with encephalopathy and was given Ativan as needed. Hemoglobin levels were monitored. She had recent esophagogastroduodenoscopy on last admission. C. diff was negative. Blood cultures did not isolate any growth x2. She was continued on antibiotics, end of therapy on 08/06/2017. She had an elevated troponin of 0.063, second troponin following day went down to 0.041. The patient had troponin leak. He was continued of any AV zoe-blocking agents. She has history of paroxysmal atrial fibrillation, however, was in sinus rhythm. Hemoglobin levels have been stable. No need for any endoscopic procedures. The patient was eventually discharged back to [facility]. FINAL DIAGNOSES: 1. Sepsis due to coagulase-negative Staphylococcus infection. 2. Possible Gastrointestinal bleed. 3. Encephalopathy. 4. Dehydration. 5. Severe protein-calorie malnutrition. 6. Percutaneous endoscopic gastrostomy status. 7. Stage III sacral pressure ulcer, present on admission. 8. Paroxysmal atrial fibrillation. 9. Troponin leak. 10. Bradycardia. DISPOSITION: The patient was discharged back to [facility]. DISCHARGE MEDICATIONS: Refer to medication list. Continue vancomycin intravenous q.12 hours until 08/06/2017 and rifampin 300 mg q.12 hours until 08/06/2017. Okay to discharge with PICC line. Check CBC and CMP once a week while on IV antibiotics. Oscar Marshall M.D. I have been assigned to dictate discharge summary on this account and I was not involved in the patient's management. Romy Diaz N.P. DR: YUSRA JOB#: [id number] CC: HERLINDA
== END 2017-07-17 14:08 | DRG 377 ==
LOC: EDBD 03:04 → EMR 03:30 → EDBEDREQ 04:35 → 4E 04:50
DX: K27.4 Chronic or unspecified peptic ulcer, site unspecified, with hemorrhage (principal); A41.1 Sepsis due to other specified staphylococcus; E43 Unspecified severe protein-calorie malnutrition; G93.40 Encephalopathy, unspecified; L89.153 Pressure ulcer of sacral region, stage 3; R13.10 Dysphagia, unspecified; R00.1 Bradycardia, unspecified; E86.0 Dehydration; F03.90 Unspecified dementia, unspecified severity, without behavioral disturbance, psychotic disturbance, mood disturbance, and anxiety; D62 Acute posthemorrhagic anemia; E88.09 Other disorders of plasma-protein metabolism, not elsewhere classified; J44.9 Chronic obstructive pulmonary disease, unspecified; Z93.1 Gastrostomy status; Z98.84 Bariatric surgery status; Z79.82 Long term (current) use of aspirin; Z66 Do not resuscitate; Z68.20 Body mass index [BMI] 20.0-20.9, adult
CPT/HCPCS: 36415; 71045; 80048; 80202; 82270; 83735; 84100; 84484; 85025; 85610; 85730; 86850; 86900; 86901; 87040; 87081; 87324; 93005; 99285; C9399; J8499